=== PATIENT | female | born 1965 | race Caucasian/White ===

== ENCOUNTER 2023-02-09 15:00 | Outpatient (RCR) | payer SELFPAY ==
[2023-01-12 11:11] VITALS: RESP 18; TEMP 36.6; BMI 33.2
--- NOTE | 2023-01-12 11:48 | PCM.WC.HP ---
History of Present Illness Date of Service: 01/12/23 Chief Complaint: Dry gangrene, right fifth toe History of Wound: right fifth toe dry gangrene Progress of Wound: Mrs. Marcial is a 57-year-old diabetic female presenting to the wound care center [facility] for second opinion to dry gangrene to the right fifth digit. Patient was seeing her outside provider who is treating the patient with saline wet-to-dry dressing changes. Patient's right fifth toe has gotten worse with evidence of dry gangrene, erythema with mild proximal streaking to the right foot. She has not been on any antibiotics. She admits she is a diabetic with loss of feeling to both of her feet. She has been wearing a surgical shoe. She denies trauma. Denies constitutional symptoms. No other pedal complaints at this time. [facility] Home Medications lisinopril .ROUTE 01/12/23 [History Last Taken Unknown] metformin 1,000 mg tablet 1,000 mg PO BID 01/12/23 [History Last Taken Unknown] Vital Signs Vital Signs Vital Signs: 01/12/23 11:11 Temperature 97.9 F Temperature Source Temporal Respiratory Rate 18 Blood Pressure Source Monitor Blood Pressure Position Semi-Fowlers Blood Pressure Location Left Arm Oxygen Delivery Method Room Air Weight Weight: 77.111 kg Body Mass Index (BMI) 33.2 Physical Exam Narrative Vascular: DP and PT pulses are faintly palpable. CFT is delayed. Skin temperature is warm to warm from proximal ankle to distal digits right lower extremity. Evidence of an increase in focal warmth to the right fifth digit. Evidence of erythema with mild proximal streaking. Neurological: Light touch intact. Protective sensation is diminished. Dermatological: Dry gangrene appreciated to the right fifth digit with erythema and proximal streaking. Evidence of fissure to the plantar aspect of the right fifth digit with stable wound bed which is 100% granular nature. No drainage or probe to bone. Musculoskeletal: No pain on palpation to the right fifth digit. No pain with calf pressure. Debridement Note Debridement Note Post-Debridement Measurements and Additional Note: Post-Debridement Measurements/Treatment JON - Nurse 1 - General Ulcer Assessment Start: 01/12/23 11:06 Freq: Status: Active Protocol: NURYEXT Activity Type Activity Date Activity User E-sign Co-sign Detail Recorded Client Recorded Date Recorded By Document 01/12/23 11:11 KW Desktop 01/12/23 11:26 KW Edit Result 01/12/23 11:11 KW (1) Desktop 01/12/23 11:29 KW (1) Preferred language => Telugu Preferences => Verbal,Written Barriers to Learning => None Readiness To Learn => Excellent Willingness to Engage in Self Management => High Activies Readiness to Engage in Self Management => High Activities Anxiety Level => Calm Cooperation => Cooperative Perception => Coherent Interest in Health Problem => Asks Questions Education Importance => Acknowledges Need Does Patient Smoke tobacco or other => No substances Is Patient Diabetic => Yes Cultural/Evangelical Needs that may affect => No Treatment Plan Would you allow our [place] [facility] retail loan officer to => No meet you for the purpose of spiritual/ emotional support? Test Facility Engineer to contact place of amish => No Welcome to the Wound Care Center => Telugu 01/12/23 11:11 WC - Today's Visit Information Type of service Initial Visit Arrival Mode Ambulatory Patient Identification Verified (Name & Yes ) Finger Stick Blood Sugar(mg/dl) (if 163 indicated): Blood Sugar Stated by Patient Height and Weight Height 5 ft Weight 77.111 kg Weight in Pounds 170.0 lbs Body Mass Index (BMI) 33.2 BMI Classification Obese BSA - Rick 1.74 Vital Signs Temperature (97.8 F-99.1 F) 97.9 F Temperature Source Temporal Respiratory Rate (12-18) 18 Respiratory rate source Observation Oxygen Delivery Method Room Air Source Monitor Position Semi-Fowlers Blood Pressure Location Left Arm History Since Last Visit- (Skip if this is Patient's initial visit) Left Footwear Surgical Shoe with pressure relief insole Right Footwear Regular Shoe Pain Scale: 0-10 Numeric Is Patient Pain Free? Yes Communication Assessment Preferred language Telugu Teaching Assessment Preferences Verbal,Written Barriers to Learning None Readiness To Learn Excellent Willingness to Engage in Self Management High Activies Readiness to Engage in Self Management High Activities Anxiety Level Calm Cooperation Cooperative Perception Coherent Interest in Health Problem Asks Questions Education Importance Acknowledges Need Does Patient Smoke tobacco or other No substances Is Patient Diabetic Yes Culture/Evangelical/Test Facility Engineer Cultural/Evangelical Needs that may affect No Treatment Plan Would you allow our hospital retail loan officer to No meet you for the purpose of spiritual/ emotional support? Test Facility Engineer to contact place of amish No Teaching: Wound Center Welcome to the Wound Care Center Telugu WC - Nurse 1 - General Ulcer Measurement Start: 01/12/23 11:06 Freq: Status: Active Protocol: Activity Type Activity Date Activity User E-sign Co-sign Detail Recorded Client Recorded Date Recorded By Document 01/12/23 11:11 KW Desktop 01/12/23 11:26 KW 01/12/23 11:11 Wound Center Nurse 1 #1 5th toe -Photo Taken Yes -Wound Margin Distinct, Outline Attached -Granulation Amt None Present (0 %) -Necrosis Amt Large (67-100%) -Necrotic Tissue Type Eschar -Texture (Lisset-wound Skin Appearance) Assessed -Moisture (Lisset-wound Skin Appearance) Assessed -Color (Lisset-wound Skin Appearance) Assessed -Temperature (Lisset-wound Skin No Abnormality Appearance) (Pt Warm) -Anesthetic Used 5% Lidocaine Gel WC - Nurse 2 - General Ulcer CM Notes Start: 01/12/23 11:06 Freq: Status: Active Protocol: Activity Type Activity Date Activity User E-sign Co-sign Detail Recorded Client Recorded Date Recorded By Document 01/12/23 11:39 Laptop 01/12/23 11:41 01/12/23 11:39 Wound Center Nurse 2 -Correct Patient No -Correct Side, Site, Position No -Correct Procedure No -Procedure Performed No -Wound/Ulcer Outcome Not Healed -Ulcer Cleansing Rinsed/ Irrigated with Saline -Foul Odor after Cleansing No -Bioengineered Tissue No -Bleeding Controlled with Pressure -Treatment Response Procedure Tolerated Well -Offloading Yes -Type of Offloading Surgical Shoe -Debridement - Subq, 1st 20sq cm No Pain Scale: 0-10 Numeric Is Patient Pain Free? Yes Assessment/Plan Assessment/Plan (1) Dry gangrene: CODE(S): I96 - Gangrene, not elsewhere classified PLAN: Patient was examined evaluated. All findings were discussed with the patient. All questions were answered to the patient's satisfaction. Patient shows evidence of decreased pulses on physical exam. We will order PVRs. Patient shows evidence of dry gangrene to the right fifth digit. We will order plain film radiographs to rule out osteomyelitis. The patient will be placed on oral doxycycline twice daily for 2 weeks for concerns of cellulitis and possible osteomyelitis infection. Educated the patient that she will most likely need to have an amputation with flap closure to the right foot. She was understanding of this. I will begin booking the patient for surgical procedure. Patient is understanding of all risk and benefits. Patient will apply Betadine paint to the right fifth digit and cover with gauze, sock as well as wear surgical shoe. She will return to the wound care center in 1 week for follow-up. She left the office pleased with the visit. (2) Peripheral vascular disease: CODE(S): I73.9 - Peripheral vascular disease, unspecified (3) Osteomyelitis of right foot: CODE(S): M86.9 - Osteomyelitis, unspecified QUALIFIERS: Osteomyelitis type: other chronic Qualified Code(s): M86.671 - Other chronic osteomyelitis, right ankle and foot (4) Cellulitis of right foot: CODE(S): L03.115 - Cellulitis of right lower limb PLAN: Patient will be placed on doxycycline 2 weeks to be taken twice daily until gone.
--- NOTE | 2023-01-12 12:43 | RAD_ITS ---
INDICATION: RIGHT 5TH TOE ULCER EXAMINATION/TECHNIQUE: X-RAY - RIGHT FOOT XR Toes Min 2 Views COMPARISON: Right foot radiographs same day. FINDINGS: 3 views of the right toes. BONES: Normal anatomic alignment without evidence of fracture or subluxation. No concerning bony lesion or abnormal sclerosis to suggest lesion. JOINTS: No significant degenerative change. SOFT TISSUES: Dense atherosclerotic vascular calcifications. RAD/Toe(s) Min 2 Views IMPRESSION: No acute osseous abnormality of the right toes. Electronically Signed: Aly Caldera MD at 1:34 EDT ,
--- NOTE | 2023-01-12 12:43 | RAD_ITS ---
INDICATION: R/O OSTEOMYELITIS EXAMINATION/TECHNIQUE: X-RAY - RIGHT XR Foot Min 3 Views COMPARISON: None. FINDINGS: 3 views of the right foot. BONES: Normal anatomic alignment without evidence of fracture or subluxation. No concerning bony lesion or abnormal sclerosis to suggest lesion. JOINTS: No significant degenerative change. SOFT TISSUES: Dense atherosclerotic vascular calcifications. Inferior calcaneal and Achilles enthesophytes. Chronic ossicles off the medial malleolus. RAD/Foot min 3 Views IMPRESSION: No acute osseous abnormality of the right foot. Electronically Signed: Aly Caldera MD at 1:33 EDT ,
--- NOTE | 2023-01-19 12:51 | ART_ITS ---
Reason For Study: PVD Procedure A bilateral lower extremity continuous wave Doppler with analog waveform analysis,segmental pressures,and ankle brachial indexes without exercise. Left Segmental Pressures Left brachial= 163mmHg. Left posterior tibial artery = 134mmHg. Left dorsalis pedis artery = 209mmHg. Left digit = 104 mmHg. The left posterior tibial artery waveforms are biphasic. The left dorsalis pedis waveforms are biphasic. Right Segmental Pressures Right brachial= 157mmHg. Right thigh = >254mmHg. Right calf = 136mmHg. Right posterior tibial artery = 95mmHg. Right dorsalis pedis artery = 128mmHg. Right digit = 70 mmHg. The right posterior tibial artery waveforms are monophasic. The right dorsalis pedis waveforms are biphasic. Indices The right ankle brachial index by the posterior tibial artery is 0.58. The right ankle brachial index by the dorsalis pedis is 0.79. The right digital-brachial index is 0.43. The left ankle brachial index by the posterior tibial artery is 0.82. The left ankle brachial index by the dorsalis pedis is 1.28. The left digital-brachial index is 0.64. VL/Lower Ext Art Exam w/o Exercis Interpretation Summary Right MAKAYLA 0.79, moderate arterial insufficiency. Doppler/PVR waveforms and segm ental pressures reveal infrapopliteal diease Left MAKAYLA 1.28, normal. Doppler/PVR waveforms of the left leg normal at rest. TB I diminished, pedal/digit disease vs spasm Ordering Physician: Jeremiah Stoner Referring Physician: Josiah Lerma Performed By: Erich Johnson RVT
[2023-01-19 14:22] VITALS: BP 159/69; PULSE 84; TEMP 36.3; BMI 33.2
--- NOTE | 2023-01-19 16:49 | PCM.WC.PN ---
History of Present Illness Date of Service: 01/19/23 Chief Complaint: Dry gangrene, right fifth toe History of Wound: right fifth toe dry gangrene Progress of Wound: Mrs. Marcial is a 57-year-old diabetic female presenting to the wound care center [facility] for second opinion to dry gangrene to the right fifth digit. Patient was seeing her outside provider who is treating the patient with saline wet-to-dry dressing changes. Patient's right fifth toe has gotten worse with evidence of dry gangrene, erythema with mild proximal streaking to the right foot. She has not been on any antibiotics. She admits she is a diabetic with loss of feeling to both of her feet. She has been wearing a surgical shoe. She denies trauma. Denies constitutional symptoms. No other pedal complaints at this time. Subjective Subjective Mrs. Marcial is a 57-year-old diabetic female presenting to the wound care center [facility] for second opinion to dry gangrene to the right fifth digit. Patient was seeing her outside provider who is treating the patient with saline wet-to-dry dressing changes. Patient's right fifth toe has gotten worse with evidence of dry gangrene, erythema with mild proximal streaking to the right foot. Patient has been taking her doxycycline. She has been doing Betadine paint and dressing to the right fifth digit. She has been wearing a surgical shoe. She denies trauma. Denies constitutional symptoms. No other pedal complaints at this time. Objective Data Objective Data Vital Signs: Vital Signs Temp Pulse Resp BP O2 Del Method 97.4 F L 84 18 159/69 H Room Air 01/19/23 14:22 01/19/23 14:22 01/12/23 11:11 01/19/23 14:22 01/19/23 14:22 Oxygen Delivery Method Room Air Weight: 77.111 kg Body Mass Index (BMI) 33.2 Physical Exam Narrative Neurovascular is unchanged. Nonpitting edema appreciated to the right foot. Erythema has improved. The plantar incision has healed. Evidence of eschar to the tip of the fifth digit. Dry gangrene is present. Proximal wound to the dry green measuring 0.4 x 1.0 x 0.2 cm. Wound is stable. Fifth digit erythema and proximal streaking is improved. No pain with calf compression. Excision debridement down to and including subcutaneous tissue with a #15 blade without incident to the right fifth digit. Predebridement measurement is eschar. Postdebridement measurement is 0.4 x 1.0 x 0.2 cm. Debridement Note Debridement Note Debridement Free Text: Excision debridement down to and including subcutaneous tissue with a #15 blade without incident to the right fifth digit. Predebridement measurement is eschar. Postdebridement measurement is 0.4 x 1.0 x 0.2 cm. Post-Debridement Measurements and Additional Note: Post-Debridement Measurements/Treatment - Nurse 1 - General Ulcer Assessment Start: 01/12/23 11:06 Freq: Status: Active Protocol: JON.AYO Activity Type Activity Date Activity User E-sign Co-sign Detail Recorded Client Recorded Date Recorded By Document 01/12/23 11:11 KW Desktop 01/12/23 11:26 KW Edit Result 01/12/23 11:11 KW (1) Desktop 01/12/23 11:29 KW Document 01/19/23 14:22 GM Desktop 01/19/23 14:28 GM (1) Preferred language => Albanian Preferences => Verbal,Written Barriers to Learning => None Readiness To Learn => Excellent Willingness to Engage in Self Management => High Activies Readiness to Engage in Self Management => High Activities Anxiety Level => Calm Cooperation => Cooperative Perception => Coherent Interest in Health Problem => Asks Questions Education Importance => Acknowledges Need Does Patient Smoke tobacco or other => No substances Is Patient Diabetic => Yes Cultural/Buddhism Needs that may affect => No Treatment Plan Would you allow our hospital clinical quality manager to => No meet you for the purpose of spiritual/ emotional support? Diamond Saw Operator to contact place of jain => No Welcome to the Wound Care Center => Albanian 01/12/23 01/19/23 11:11 14:22 - Today's Visit Information Type of service Initial Visit Follow-up Visit (Physician/GREENHOUSE STAFF ) Arrival Mode Ambulatory Ambulatory Transfer Assistance None Patient Identification Verified (Name & Yes Yes ) Patient Requires Transmission-Based No Precautions Safety Precautions NA Finger Stick Blood Sugar(mg/dl) (if 163 indicated): Blood Sugar Stated by Patient Height and Weight Height 5 ft Weight 77.111 kg Weight in Pounds 170.0 lbs Body Mass Index (BMI) 33.2 33.2 BMI Classification Obese Obese BSA - Rick 1.74 Vital Signs Temperature (97.8 F-99.1 F) 97.9 F 97.4 F L Temperature Source Temporal Temporal Pulse Rate (60-100) 84 Pulse Location Monitor Respiratory Rate (12-18) 18 Respiratory rate source Observation Oxygen Delivery Method Room Air Room Air Blood Pressure (90/60-120/80) 159/69 H Blood Pressure Mean (mm Hg) 99 Source Monitor Monitor Position Semi-Fowlers Sitting Blood Pressure Location Left Arm Right Arm History Since Last Visit- (Skip if this is Patient's initial visit) Have you changed medications since your No last visit? Any new allergies or adverse reactions No Had a fall/change in ADL's that may No increase risk of falls Signs or symptoms of abuse and/or No neglect since last visit Have you been in the hospital since your No last visit? Has dressing in place as prescribed Yes Has compression in place as prescribed N/A Has offloadiing in place as prescribed N/A Left Footwear Surgical Shoe Regular Shoe with pressure relief insole Right Footwear Regular Shoe Regular Shoe Pain Scale: 0-10 Numeric Is Patient Pain Free? Yes Yes Communication Assessment Preferred language Albanian Teaching Assessment Preferences Verbal,Written Barriers to Learning None Readiness To Learn Excellent Willingness to Engage in Self Management High Activies Readiness to Engage in Self Management High Activities Anxiety Level Calm Cooperation Cooperative Perception Coherent Interest in Health Problem Asks Questions Education Importance Acknowledges Need Does Patient Smoke tobacco or other No substances Is Patient Diabetic Yes Culture/Buddhism/Diamond Saw Operator Cultural/Buddhism Needs that may affect No Treatment Plan Would you allow our hospital clinical quality manager to No meet you for the purpose of spiritual/ emotional support? Diamond Saw Operator to contact place of jain No Teaching: Wound Center Welcome to the Wound Care Center English WEBB - Nurse 1 - General Ulcer Measurement Start: 01/12/23 11:06 Freq: Status: Active Protocol: Activity Type Activity Date Activity User E-sign Co-sign Detail Recorded Client Recorded Date Recorded By Document 01/12/23 11:11 KW Desktop 01/12/23 11:26 KW Document 01/19/23 14:22 Desktop 01/19/23 14:28 01/12/23 01/19/23 11:11 14:22 Wound Center Nurse 1 #1 5th toe -Photo Taken Yes No -Epithelialization None Present -Tunneling No -Undermining/Tunneling No -Exudate Amt Small -Exudate Type Serous -Wound Margin Distinct, Indistinct, Non Outline -Visible Attached -Granulation Amt None Present (0 %) -Necrosis Amt Large (67-100%) -Necrotic Tissue Type Eschar Eschar -Structure Exposed N/A -Texture (Lisset-wound Skin Appearance) Assessed Assessed -Moisture (Lisset-wound Skin Appearance) Assessed Assessed -Color (Lisset-wound Skin Appearance) Assessed Assessed -Temperature (Lisset-wound Skin No Abnormality No Abnormality Appearance) (Pt Warm) (Pt Warm) -Tenderness on Palpation (Lisset-wound No Skin Appearance) -Ulcer Cleansing Rinsed/ Irrigated with Saline -Foul Odor after Cleansing No -Anesthetic Used 5% Lidocaine 5% Lidocaine Gel Gel WC - Nurse 2 - General Ulcer CM Notes Start: 01/12/23 11:06 Freq: Status: Active Protocol: Activity Type Activity Date Activity User E-sign Co-sign Detail Recorded Client Recorded Date Recorded By Document 01/12/23 11:39 Laptop 01/12/23 11:41 Document 01/19/23 14:45 Laptop 01/19/23 14:53 01/12/23 01/19/23 11:39 14:45 Wound Center Nurse 2 #1 5th toe -Time 14:53 -Correct Patient No Yes -Correct Side, Site, Position No Yes -Correct Procedure No Yes -Procedure Performed No Yes -Type of Procedure Debridement -Clinical Debridement Subcutaneous -Tissue Removed Subcutaneous -Post Debridement (cm) - Length 0.4 -Post Debridement (cm) - Width 1.0 -Post Debridement (cm) - Depth 0.2 -Total Square (Post) (cm) 0.40 -Area of Debridement (cm) - Length 0.4 -Area of Debridement (cm) - Width 1.0 -Total Square (Area) (cm) 0.40 -Tunneling No -Undermining/Tunneling No -Circular Undermining No -Wound/Ulcer Outcome Not Healed Not Healed -Ulcer Cleansing Rinsed/ Rinsed/ Irrigated with Irrigated with Saline Saline -Foul Odor after Cleansing No No -Bioengineered Tissue No No -Bleeding Controlled with Pressure Pressure -Treatment Response Procedure Procedure Tolerated Well Tolerated Well -Offloading Yes Yes -Type of Offloading Surgical Shoe Surgical Shoe -Debridement - Subq, 1st 20sq cm No Yes Pain Scale: 0-10 Numeric Is Patient Pain Free? Yes Yes - Nurse 3 - General Ulcer D/C NN Start: 01/12/23 11:06 Freq: Status: Active Protocol: Activity Type Activity Date Activity User E-sign Co-sign Detail Recorded Client Recorded Date Recorded By Document 01/12/23 11:58 [facility] Desktop 01/12/23 11:59 [facility] Document 01/19/23 15:05 KW Desktop 01/19/23 15:05 01/12/23 01/19/23 11:58 15:05 Wound Care Center Nurse 3 #1 5th toe -Ulcer Cleansing Rinsed/ Rinsed/ Irrigated with Irrigated with Saline Saline -Foul Odor after Cleansing No -Other Dressing betadine -Primary Dressing Covered/Secured with Dry Gauze, Dry Gauze, Secured with Secured with Tape Tape Pain Scale: 0-10 Numeric Is Patient Pain Free? Yes Yes WC - Visit Discharge Discharge Condition Stable Stable Ambulatory Status Ambulatory Transportation Private Auto Private Auto Accompanied by sister Medication Reconcilliation completed & No provided to patient/care provider Clinical Summary of Care Provided Yes Assessment/Plan Assessment/Plan (1) Non-pressure chronic ulcer of other part of right foot with fat layer exposed: CODE(S): L97.512 - Non-pressure chronic ulcer of other part of right foot with fat layer exposed PLAN: Patient was examined evaluated. All findings were discussed with the patient. All questions were answered to the patient's satisfaction. Excision debridement down to and including subcutaneous tissue with a #15 blade without incident to the right fifth digit. Predebridement measurement is eschar. Postdebridement measurement is 0.4 x 1.0 x 0.2 cm. Patient's wound was dressed with Betadine paint and gauze. Patient instructed to be ambulatory in surgical shoe only. Educated the patient on strict [place] control. Patient's ABIs were reviewed and show evidence of moderate peripheral vascular disease right lower extremity. Make referral to Dr. Ortiz for consultation. Follow-up in 1 week. (2) Dry gangrene: CODE(S): I96 - Gangrene, not elsewhere classified PLAN: Reviewed the patient's radiographs that show no evidence of soft tissue air emphysema or osteomyelitis to the distal tuft of the right fifth digit. (3) Peripheral vascular disease: CODE(S): I73.9 - Peripheral vascular disease, unspecified PLAN: Reviewed the patient's MAKAYLA and showed evidence of moderate arterial disease to the right lower extremity. Left lower extremity is unremarkable. We will make referral to Dr. Ortiz for consultation and possible intervention. (4) Cellulitis of right foot: CODE(S): L03.115 - Cellulitis of right lower limb
[2023-01-26 08:43] VITALS: BP 146/72; PULSE 90; RESP 18; TEMP 35.4; BMI 33.2
--- NOTE | 2023-01-26 09:03 | PN.PCM_ITS ---
History of Present Illness Date of Service: 01/26/23 Chief Complaint: Dry gangrene, right fifth toe History of Wound: right fifth toe dry gangrene Progress of Wound: Mrs. Marcial is a 57-year-old diabetic female presenting to the wound care center [facility] for second opinion to dry gangrene to the right fifth digit. Patient was seeing her outside provider who is treating the patient with saline wet-to-dry dressing changes. Patient's right fifth toe has gotten worse with evidence of dry gangrene, erythema with mild proximal streaking to the right foot. She has not been on any antibiotics. She admits she is a diabetic with loss of feeling to both of her feet. She has been wearing a surgical shoe. She denies trauma. Denies constitutional symptoms. No other pedal complaints at this time. Subjective Subjective Mrs. Marcial is a 57-year-old diabetic female presenting to the wound care center [facility] for second opinion to dry gangrene to the right fifth digit. Patient was seeing her outside provider who is treating the patient with saline wet-to-dry dressing changes. Patient's right fifth toe has gotten worse with evidence of dry gangrene, erythema with mild proximal streaking to the right foot. Patient has been taking her doxycycline. She has been doing Betadine paint and dressing to the right fifth digit. She has been wearing a surgical shoe. She denies trauma. Denies constitutional symptoms. No other pedal complaints at this time. Objective Data Objective Data Vital Signs: Vital Signs Temp Pulse Resp BP O2 Del Method 95.7 F L 90 18 146/72 H Room Air 01/26/23 08:43 01/26/23 08:43 01/26/23 08:43 01/26/23 08:43 01/19/23 14:22 Oxygen Delivery Method Room Air Weight: 77.111 kg Body Mass Index (BMI) 33.2 Physical Exam Narrative Neurovascular is unchanged. Nonpitting edema appreciated to the right foot. Erythema has improved. The plantar incision has healed. Evidence of eschar to the tip of the fifth digit. Dry gangrene is present. Proximal wound to the dry green measuring 1.0 x 0.4 x 0.2 cm. Wound is stable. Fifth digit erythema and proximal streaking is present. No pain with calf compression. Excision debridement down to and including subcutaneous tissue with a #15 blade without incident to the right fifth digit. Predebridement measurement is eschar. Postdebridement measurement is 1.0 x 0.4 x 0.2 cm. Debridement Note Debridement Note Debridement Free Text: Excision debridement down to and including subcutaneous tissue with a #15 blade without incident to the right fifth digit. Predebridement measurement is eschar. Postdebridement measurement is 1.0 x 0.4 x 0.2 cm. Post-Debridement Measurements and Additional Note: Post-Debridement Measurements/Treatment - Nurse 1 - General Ulcer Assessment Start: 01/12/23 11:06 Freq: Status: Active Protocol: HECTOR Activity Type Activity Date Activity User E-sign Co-sign Detail Recorded Client Recorded Date Recorded By Document 01/12/23 11:11 KW Desktop 01/12/23 11:26 KW Edit Result 01/12/23 11:11 KW (1) Desktop 01/12/23 11:29 KW Document 01/19/23 14:22 GM Desktop 01/19/23 14:28 GM Document 01/26/23 08:43 PL Tablet 01/26/23 08:48 PL (1) Preferred language => Vietnamese Preferences => Verbal,Written Barriers to Learning => None Readiness To Learn => Excellent Willingness to Engage in Self Management => High Activies Readiness to Engage in Self Management => High Activities Anxiety Level => Calm Cooperation => Cooperative Perception => Coherent Interest in Health Problem => Asks Questions Education Importance => Acknowledges Need Does Patient Smoke tobacco or other => No substances Is Patient Diabetic => Yes Cultural/Christianity Needs that may affect => No Treatment Plan Would you allow our hospital licensed psychologist manager to => No meet you for the purpose of spiritual/ emotional support? Oracle Application Architect to contact place of adventist => No Welcome to the Wound Care Center => Vietnamese 01/12/23 01/19/23 01/26/23 11:11 14:22 08:43 - Today's Visit Information Type of service Initial Visit Follow-up Visit Follow-up Visit (Physician/REGISTERED CLINICAL DIETITIAN (Physician/REGISTERED CLINICAL DIETITIAN ) ) Arrival Mode Ambulatory Ambulatory Ambulatory Transfer Assistance None None Patient Identification Verified (Name & Yes Yes Yes ) Patient Requires Transmission-Based No No Precautions Safety Precautions NA Finger Stick Blood Sugar(mg/dl) (if 163 indicated): Blood Sugar Stated by Patient Height and Weight Height 5 ft Weight 77.111 kg Weight in Pounds 170.0 lbs Body Mass Index (BMI) 33.2 33.2 33.2 BMI Classification Obese Obese Obese BSA - Rick 1.74 Vital Signs Temperature (97.8 F-99.1 F) 97.9 F 97.4 F L 95.7 F L Temperature Source Temporal Temporal Temporal Pulse Rate (60-100) 84 90 Pulse Location Monitor Respiratory Rate (12-18) 18 18 Respiratory rate source Observation Oxygen Delivery Method Room Air Room Air Blood Pressure (90/60-120/80) 159/69 H 146/72 H Blood Pressure Mean (mm Hg) 99 96 Source Monitor Monitor Position Semi-Fowlers Sitting Blood Pressure Location Left Arm Right Arm History Since Last Visit- (Skip if this is Patient's initial visit) Have you changed medications since your No No last visit? Any new allergies or adverse reactions No No Had a fall/change in ADL's that may No No increase risk of falls Signs or symptoms of abuse and/or No No neglect since last visit Have you been in the hospital since your No No last visit? Has dressing in place as prescribed Yes Yes Has compression in place as prescribed N/A N/A Has offloadiing in place as prescribed N/A Yes Experienced any changes in pain level or No management Left Footwear Surgical Shoe Regular Shoe with pressure relief insole Right Footwear Regular Shoe Regular Shoe Pain Scale: 0-10 Numeric Is Patient Pain Free? Yes Yes Yes Communication Assessment Preferred language Vietnamese Teaching Assessment Preferences Verbal,Written Barriers to Learning None Readiness To Learn Excellent Willingness to Engage in Self Management High Activies Readiness to Engage in Self Management High Activities Anxiety Level Calm Cooperation Cooperative Perception Coherent Interest in Health Problem Asks Questions Education Importance Acknowledges Need Does Patient Smoke tobacco or other No substances Is Patient Diabetic Yes Culture/Christianity/Oracle Application Architect Cultural/Christianity Needs that may affect No Treatment Plan Would you allow our hospital licensed psychologist manager to No meet you for the purpose of spiritual/ emotional support? Oracle Application Architect to contact place of adventist No Teaching: Wound Center Welcome to the Wound Care Center English WEBB - Nurse 1 - General Ulcer Measurement Start: 01/12/23 11:06 Freq: Status: Active Protocol: Activity Type Activity Date Activity User E-sign Co-sign Detail Recorded Client Recorded Date Recorded By Document 01/12/23 11:11 Desktop 01/12/23 11:26 Document 01/19/23 14:22 Desktop 01/19/23 14:28 01/12/23 01/19/23 11:11 14:22 Wound Center Nurse 1 #1 5th toe -Photo Taken Yes No -Epithelialization None Present -Tunneling No -Undermining/Tunneling No -Exudate Amt Small -Exudate Type Serous -Wound Margin Distinct, Indistinct, Non Outline -Visible Attached -Granulation Amt None Present (0 %) -Necrosis Amt Large (67-100%) -Necrotic Tissue Type Eschar Eschar -Structure Exposed N/A -Texture (Lisset-wound Skin Appearance) Assessed Assessed -Moisture (Lisset-wound Skin Appearance) Assessed Assessed -Color (Lisset-wound Skin Appearance) Assessed Assessed -Temperature (Lisset-wound Skin No Abnormality No Abnormality Appearance) (Pt Warm) (Pt Warm) -Tenderness on Palpation (Lisset-wound No Skin Appearance) -Ulcer Cleansing Rinsed/ Irrigated with Saline -Foul Odor after Cleansing No -Anesthetic Used 5% Lidocaine 5% Lidocaine Gel Gel WC - Nurse 2 - General Ulcer CM Notes Start: 01/12/23 11:06 Freq: Status: Active Protocol: Activity Type Activity Date Activity User E-sign Co-sign Detail Recorded Client Recorded Date Recorded By Document 01/12/23 11:39 Laptop 01/12/23 11:41 Document 01/19/23 14:45 [employer] 01/19/23 14:53 Document 01/26/23 08:55 Laptop 01/26/23 08:57 01/12/23 01/19/23 01/26/23 11:39 14:45 08:55 Wound Center Nurse 2 #1 5th toe -Time 14:53 08:55 -Correct Patient No Yes Yes -Correct Side, Site, Position No Yes Yes -Correct Procedure No Yes Yes -Procedure Performed No Yes Yes -Type of Procedure Debridement Debridement -Clinical Debridement Subcutaneous Subcutaneous -Tissue Removed Subcutaneous Subcutaneous -Post Debridement (cm) - Length 0.4 1 -Post Debridement (cm) - Width 1.0 0.4 -Post Debridement (cm) - Depth 0.2 0.2 -Total Square (Post) (cm) 0.40 0.4 -Area of Debridement (cm) - Length 0.4 1.0 -Area of Debridement (cm) - Width 1.0 0.4 -Total Square (Area) (cm) 0.40 0.40 -Tunneling No No -Undermining/Tunneling No No -Circular Undermining No No -Wound/Ulcer Outcome Not Healed Not Healed Not Healed -Ulcer Cleansing Rinsed/ Rinsed/ Rinsed/ Irrigated with Irrigated with Irrigated with Saline Saline Saline -Foul Odor after Cleansing No No No -Bioengineered Tissue No No No -Bleeding Controlled with Pressure Pressure Pressure -Treatment Response Procedure Procedure Procedure Tolerated Well Tolerated Well Tolerated Well -Offloading Yes Yes No -Type of Offloading Surgical Shoe Surgical Shoe Surgical Shoe -Debridement - Open, 1st 20sq cm No -Debridement - Subq, 1st 20sq cm No Yes Yes Pain Scale: 0-10 Numeric Is Patient Pain Free? Yes Yes Yes - Nurse 3 - General Ulcer D/C NN Start: 01/12/23 11:06 Freq: Status: Active Protocol: Activity Type Activity Date Activity User E-sign Co-sign Detail Recorded Client Recorded Date Recorded By Document 01/12/23 11:58 [facility] Desktop 01/12/23 11:59 [facility] Document 01/19/23 15:05 [employer] Desktop 01/19/23 15:05 [employer] Document 01/26/23 09:02 Laptop 01/26/23 09:02 01/12/23 01/19/23 01/26/23 11:58 15:05 09:02 Wound Care Center Nurse 3 #1 5th toe -Ulcer Cleansing Rinsed/ Rinsed/ Rinsed/ Irrigated with Irrigated with Irrigated with Saline Saline Saline -Foul Odor after Cleansing No -Other Dressing betadine betadine -Primary Dressing Covered/Secured with Dry Gauze, Dry Gauze, Dry Gauze, Secured with Secured with Secured with Tape Tape Tape Pain Scale: 0-10 Numeric Is Patient Pain Free? Yes Yes Yes - Visit Discharge Discharge Condition Stable Stable Stable Ambulatory Status Ambulatory Ambulatory Transportation Private Auto Private Auto Private Auto Accompanied by sister Medication Reconcilliation completed & No Yes provided to patient/care provider Clinical Summary of Care Provided Yes Yes Assessment/Plan Assessment/Plan (1) Non-pressure chronic ulcer of other part of right foot with fat layer exposed: CODE(S): L97.512 - Non-pressure chronic ulcer of other part of right foot with fat layer exposed PLAN: Patient was examined evaluated. All findings were discussed with the patient. All questions were answered to the patient's satisfaction. Excision debridement down to and including subcutaneous tissue with a #15 blade without incident to the right fifth digit. Predebridement measurement is eschar. Postdebridement measurement is 1.0 x 0.4 x 0.2 cm. Right fifth digit was dressed with Betadine paint dry sterile dressing. Patient will follow-up with vascular next Tuesday. We will still plan to move forward after vascular consult with partial excision of bone with advancement flap to right fifth digit. Follow-up in 1 week. (2) Cellulitis of right foot: CODE(S): L03.115 - Cellulitis of right lower limb PLAN: Patient will have her doxycycline extended for 2 additional weeks prior to surgery. Patient will follow-up with vascular surgery on next Tuesday. (3) Osteomyelitis of right foot: CODE(S): M86.9 - Osteomyelitis, unspecified QUALIFIERS: Osteomyelitis type: other chronic Qualified Code(s): M86.671 - Other chronic osteomyelitis, right ankle and foot
[2023-02-02 14:18] VITALS: BP 130/69; PULSE 89; RESP 18; BMI 33.2
--- NOTE | 2023-02-02 15:32 | PCM.WC.PN ---
History of Present Illness Date of Service: 02/02/23 Chief Complaint: Dry gangrene, right fifth toe History of Wound: right fifth toe dry gangrene Progress of Wound: Mrs. Marcial is a 57-year-old diabetic female presenting to the wound care center today [facility] for second opinion to dry gangrene to the right fifth digit. Patient was seeing her outside provider who is treating the patient with saline wet-to-dry dressing changes. Patient's right fifth toe has gotten worse with evidence of dry gangrene, erythema with mild proximal streaking to the right foot. She has not been on any antibiotics. She admits she is a diabetic with loss of feeling to both of her feet. She has been wearing a surgical shoe. She denies trauma. Denies constitutional symptoms. No other pedal complaints at this time. Subjective Subjective is a 58-year-old diabetic female presenting to clinic today for follow-up evaluation of dry gangrene to the right fifth digit. She has been taking antibiotics as written. She has been applying home dressing changes, Betadine paint dry sterile dressing to the right fifth digit. She did follow-up with the vascular surgery PA and has a scheduled CTA for next month for evaluation of her lower extremity vessels to the right lower extremity. She denies trauma. Denies constitutional symptoms. No other pedal complaints at this time. Objective Data Objective Data Vital Signs: Vital Signs Temp Pulse Resp BP O2 Del Method 95.7 F L 89 18 130/69 H Room Air 01/26/23 08:43 02/02/23 14:18 02/02/23 14:18 02/02/23 14:18 02/02/23 14:18 Oxygen Delivery Method Room Air Weight: 77.111 kg Body Mass Index (BMI) 33.2 Physical Exam Narrative Neurovascular is unchanged. Nonpitting edema appreciated to the right foot. Erythema has improved. The plantar incision has healed. Evidence of eschar to the tip of the fifth digit. Dry gangrene is present. Proximal wound to the dry green measuring 1.0 x 0.4 x 0.2 cm. Wound is stable. Fifth digit erythema and proximal streaking is present. No pain with calf compression. Debridement Note Debridement Note Post-Debridement Measurements and Additional Note: Post-Debridement Measurements/Treatment WC - Nurse 1 - General Ulcer Assessment Start: 01/12/23 11:06 Freq: Status: Active Protocol: WC.LOWEXT Activity Type Activity Date Activity User E-sign Co-sign Detail Recorded Client Recorded Date Recorded By Document 01/12/23 11:11 KW Desktop 01/12/23 11:26 KW Edit Result 01/12/23 11:11 KW (1) Desktop 01/12/23 11:29 KW Document 01/19/23 14:22 GM Desktop 01/19/23 14:28 GM Document 01/26/23 08:43 PL Tablet 01/26/23 08:48 PL Document 02/02/23 14:18 GM Desktop 02/02/23 14:24 GM (1) Preferred language => Tajik Preferences => Verbal,Written Barriers to Learning => None Readiness To Learn => Excellent Willingness to Engage in Self Management => High Activies Readiness to Engage in Self Management => High Activities Anxiety Level => Calm Cooperation => Cooperative Perception => Coherent Interest in Health Problem => Asks Questions Education Importance => Acknowledges Need Does Patient Smoke tobacco or other => No substances Is Patient Diabetic => Yes Cultural/Caodaism Needs that may affect => No Treatment Plan Would you allow our hospital vice president talent management to => No meet you for the purpose of spiritual/ emotional support? Market Survey Representative to contact place of scientologist => No Welcome to the Wound Care Center => [place] 01/12/23 01/19/23 01/26/23 11:11 14:22 08:43 WC - Today's Visit Information Type of service Initial Visit Follow-up Visit Follow-up Visit (Physician/PRESIDENT AND CHIEF OPERATING OFFICER (Physician/PRESIDENT AND CHIEF OPERATING OFFICER ) ) Arrival Mode Ambulatory Ambulatory Ambulatory Transfer Assistance None None Patient Identification Verified (Name & Yes Yes Yes ) Patient Requires Transmission-Based No No Precautions Safety Precautions NA Finger Stick Blood Sugar(mg/dl) (if 163 indicated): Blood Sugar Stated by Patient Height and Weight Height 5 ft Weight 77.111 kg Weight in Pounds 170.0 lbs Body Mass Index (BMI) 33.2 33.2 33.2 BMI Classification Obese Obese Obese BSA - Rick 1.74 Vital Signs Temperature (97.8 F-99.1 F) 97.9 F 97.4 F L 95.7 F L Temperature Source Temporal Temporal Temporal Pulse Rate (60-100) 84 90 Pulse Location Monitor Respiratory Rate (12-18) 18 18 Respiratory rate source Observation Oxygen Delivery Method Room Air Room Air Blood Pressure (90/60-120/80) 159/69 H 146/72 H Blood Pressure Mean (mm Hg) 99 96 Source Monitor Monitor Position Semi-Fowlers Sitting Blood Pressure Location Left Arm Right Arm History Since Last Visit- (Skip if this is Patient's initial visit) Have you changed medications since your No No last visit? Any new allergies or adverse reactions No No Had a fall/change in ADL's that may No No increase risk of falls Signs or symptoms of abuse and/or No No neglect since last visit Have you been in the hospital since your No No last visit? Has dressing in place as prescribed Yes Yes Has compression in place as prescribed N/A N/A Has offloadiing in place as prescribed N/A Yes Experienced any changes in pain level or No management Left Footwear Surgical Shoe Regular Shoe with pressure relief insole Right Footwear Regular Shoe Regular Shoe Pain Scale: 0-10 Numeric Is Patient Pain Free? Yes Yes Yes Communication Assessment Preferred language Tajik Teaching Assessment Preferences Verbal,Written Barriers to Learning None Readiness To Learn Excellent Willingness to Engage in Self Management High Activies Readiness to Engage in Self Management High Activities Anxiety Level Calm Cooperation Cooperative Perception Coherent Interest in Health Problem Asks Questions Education Importance Acknowledges Need Does Patient Smoke tobacco or other No substances Is Patient Diabetic Yes Culture/Caodaism/Market Survey Representative Cultural/Caodaism Needs that may affect No Treatment Plan Would you allow our hospital vice president talent management to No meet you for the purpose of spiritual/ emotional support? Market Survey Representative to contact place of scientologist No Teaching: Wound Center Welcome to the Wound Care Center [place] 02/02/23 14:18 WC - Today's Visit Information Type of service Follow-up Visit (Physician/PRESIDENT AND CHIEF OPERATING OFFICER ) Arrival Mode Ambulatory Transfer Assistance None Patient Identification Verified (Name & Yes ) Patient Requires Transmission-Based No Precautions Safety Precautions NA Finger Stick Blood Sugar(mg/dl) (if indicated): Blood Sugar Height and Weight Height Weight Weight in Pounds Body Mass Index (BMI) 33.2 BMI Classification Obese BSA - Rick Vital Signs Temperature (97.8 F-99.1 F) Temperature Source Pulse Rate (60-100) 89 Pulse Location Monitor Respiratory Rate (12-18) 18 Respiratory rate source Ventilator Oxygen Delivery Method Room Air Blood Pressure (90/60-120/80) 130/69 H Blood Pressure Mean (mm Hg) 89 Source Monitor Position Sitting Blood Pressure Location Left Arm History Since Last Visit- (Skip if this is Patient's initial visit) Have you changed medications since your Yes last visit? Any new allergies or adverse reactions No Had a fall/change in ADL's that may No increase risk of falls Signs or symptoms of abuse and/or No neglect since last visit Have you been in the hospital since your No last visit? Has dressing in place as prescribed Yes Has compression in place as prescribed N/A Has offloadiing in place as prescribed N/A Experienced any changes in pain level or management Left Footwear Regular Shoe Right Footwear Wedge Shoe Pain Scale: 0-10 Numeric Is Patient Pain Free? Yes Communication Assessment Preferred language Teaching Assessment Preferences Barriers to Learning Readiness To Learn Willingness to Engage in Self Management Activies Readiness to Engage in Self Management Activities Anxiety Level Cooperation Perception Interest in Health Problem Education Importance Does Patient Smoke tobacco or other substances Is Patient Diabetic Culture/Caodaism/Market Survey Representative Cultural/Caodaism Needs that may affect Treatment Plan Would you allow our hospital vice president talent management to meet you for the purpose of spiritual/ emotional support? Market Survey Representative to contact place of scientologist Teaching: Wound Center Welcome to the Wound Care Center WC - Nurse 1 - General Ulcer Measurement Start: 01/12/23 11:06 Freq: Status: Active Protocol: Activity Type Activity Date Activity User E-sign Co-sign Detail Recorded Client Recorded Date Recorded By Document 01/12/23 11:11 KW Desktop 01/12/23 11:26 Document 01/19/23 14:22 Desktop 01/19/23 14:28 Document 02/02/23 14:18 [employer] 02/02/23 14:24 01/12/23 01/19/23 02/02/23 11:11 14:22 14:18 Wound Center Nurse 1 #1 5th toe -Combined with other wound No -Current Size (cm) - Length 2.0 -Current Size (cm) - Width 2.0 -Current Size (cm) - Depth 0.1 -Total Square Cm 4.00 -Photo Taken Yes No No -Epithelialization None Present None Present -Tunneling No No -Undermining/Tunneling No No -Circular Undermining No -Exudate Amt Small Medium -Exudate Type Serous Yellow/Green -Wound Margin Distinct, Indistinct, Non Distinct, Outline -Visible Outline Attached Attached -Granulation Amt None Present (0 None Present (0 %) %) -Slough/Fibrin Yes -Necrosis Amt Large (67-100%) Large (67-100%) -Necrotic Tissue Type Eschar Eschar Eschar -Structure Exposed N/A N/A -Texture (Lisset-wound Skin Appearance) Assessed Assessed Assessed -Moisture (Lisset-wound Skin Appearance) Assessed Assessed Assessed -Color (Lisset-wound Skin Appearance) Assessed Assessed Assessed -Temperature ([place]isset-wound Skin No Abnormality No Abnormality No Abnormality Appearance) (Pt Warm) (Pt Warm) (Pt Warm) -Tenderness on Palpation (Lisset-wound No Yes Skin Appearance) -Ulcer Cleansing Rinsed/ Soap and Water Irrigated with Saline -Foul Odor after Cleansing No No -Anesthetic Used 5% Lidocaine 5% Lidocaine 5% Lidocaine Gel Gel Gel WC - Nurse 2 - General Ulcer CM Notes Start: 01/12/23 11:06 Freq: Status: Active Protocol: Activity Type Activity Date Activity User E-sign Co-sign Detail Recorded Client Recorded Date Recorded By Document 01/12/23 11:39 [employer] Laptop 01/12/23 11:41 Document 01/19/23 14:45 Laptop 01/19/23 14:53 Document 01/26/23 08:55 Laptop 01/26/23 08:57 01/12/23 01/19/23 01/26/23 11:39 14:45 08:55 Wound Center Nurse 2 #1 5th toe -Time 14:53 08:55 -Correct Patient No Yes Yes -Correct Side, Site, Position No Yes Yes -Correct Procedure No Yes Yes -Procedure Performed No Yes Yes -Type of Procedure Debridement Debridement -Clinical Debridement Subcutaneous Subcutaneous -Tissue Removed Subcutaneous Subcutaneous -Post Debridement (cm) - Length 0.4 1 -Post Debridement (cm) - Width 1.0 0.4 -Post Debridement (cm) - Depth 0.2 0.2 -Total Square (Post) (cm) 0.40 0.4 -Area of Debridement (cm) - Length 0.4 1.0 -Area of Debridement (cm) - Width 1.0 0.4 -Total Square (Area) (cm) 0.40 0.40 -Tunneling No No -Undermining/Tunneling No No -Circular Undermining No No -Wound/Ulcer Outcome Not Healed Not Healed Not Healed -Ulcer Cleansing Rinsed/ Rinsed/ Rinsed/ Irrigated with Irrigated with Irrigated with Saline Saline Saline -Foul Odor after Cleansing No No No -Bioengineered Tissue No No No -Bleeding Controlled with Pressure Pressure Pressure -Treatment Response Procedure Procedure Procedure Tolerated Well Tolerated Well Tolerated Well -Offloading Yes Yes No -Type of Offloading Surgical Shoe Surgical Shoe Surgical Shoe -Debridement - Open, 1st 20sq cm No -Debridement - Subq, 1st 20sq cm No Yes Yes Pain Scale: 0-10 Numeric Is Patient Pain Free? Yes Yes Yes - Nurse 3 - General Ulcer D/C NN Start: 01/12/23 11:06 Freq: Status: Active Protocol: Activity Type Activity Date Activity User E-sign Co-sign Detail Recorded Client Recorded Date Recorded By Document 01/12/23 11:58 [facility] Desktop 01/12/23 11:59 [facility] Document 01/19/23 15:05 [employer] Desktop 01/19/23 15:05 Document 01/26/23 09:02 Laptop 01/26/23 09:02 01/12/23 01/19/23 01/26/23 11:58 15:05 09:02 Wound Care Center Nurse 3 #1 5th toe -Ulcer Cleansing Rinsed/ Rinsed/ Rinsed/ Irrigated with Irrigated with Irrigated with Saline Saline Saline -Foul Odor after Cleansing No -Other Dressing betadine betadine -Primary Dressing Covered/Secured with Dry Gauze, Dry Gauze, Dry Gauze, Secured with Secured with Secured with Tape Tape Tape Pain Scale: 0-10 Numeric Is Patient Pain Free? Yes Yes Yes - Visit Discharge Discharge Condition Stable Stable Stable Ambulatory Status Ambulatory Ambulatory Transportation Private Auto Private Auto Private Auto Accompanied by sister Medication Reconcilliation completed & No Yes provided to patient/care provider Clinical Summary of Care Provided Yes Yes Assessment/Plan Assessment/Plan (1) Non-pressure chronic ulcer of other part of right foot with fat layer exposed: CODE(S): L97.512 - Non-pressure chronic ulcer of other part of right foot with fat layer exposed PLAN: Patient was examined evaluated. All findings were discussed with the patient. All questions were answered to the patient satisfaction. Betadine paint followed by dry sterile dressing was applied to the right lower extremity fifth digit. Patient was instructed to paint Betadine paint to her right fifth digit and interspace daily. She has to follow-up weekly at the wound care center with Dr. Stoner. She will follow-up when scheduled for her CTA for evaluation of her right lower extremity vessels and the need for intervention. Patient is grateful for her care. She will continue to take her antibiotic as written. She will follow-up in 1 week. 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
--- NOTE | 2023-02-09 15:03 | PN.PCM_ITS ---
History of Present Illness Date of Service: 02/09/23 Chief Complaint: Dry gangrene, right fifth toe History of Wound: right fifth toe dry gangrene Progress of Wound: Mrs. Marcial is a 57-year-old diabetic female presenting to the wound care center [facility] for second opinion to dry gangrene to the right fifth digit. Patient was seeing her outside provider who is treating the patient with saline wet-to-dry dressing changes. Patient's right fifth toe has gotten worse with evidence of dry gangrene, erythema with mild proximal streaking to the right foot. She has not been on any antibiotics. She admits she is a diabetic with loss of feeling to both of her feet. She has been wearing a surgical shoe. She denies trauma. Denies constitutional symptoms. No other pedal complaints at this time. Subjective Subjective Ms Marcial is a 58-year-old diabetic female presenting to follow-up evaluation of right toe gangrene. Patient has been doing home dressing supplies consisting of Betadine paint and Band-Aid. She will follow-up with vascular for CTA in the next 2 weeks. She admits her blood sugars well-controlled. She denies any pain trauma or constitutional symptoms at this time. No other pedal complaints. Objective Data Objective Data Vital Signs: Vital Signs Temp Pulse Resp BP O2 Del Method 95.7 F L 89 18 130/69 H Room Air 01/26/23 08:43 02/02/23 14:18 02/02/23 14:18 02/02/23 14:18 02/02/23 14:18 Oxygen Delivery Method Room Air Weight: 77.111 kg Body Mass Index (BMI) 33.2 Physical Exam Narrative Neurovascular is unchanged. Nonpitting edema appreciated to the right foot. Blanchable erythema appreciated to the right fifth digit. Dry eschar appreciated to the distal aspect of the right digit. No malodor. No drainage. No probe to bone. No pain with calf compression. Excisional debridement down to and including subcutaneous tissue fascia/muscle with a #15 blade and pickup to the right fifth digit without incident. Predebridement measurement is eschar. Postdebridement measurement is 1.0 x 1.2 x 0.3 cm. Sanguinous drainage noted after debridement. Debridement Note Debridement Note Debridement Free Text: Excisional debridement down to and including subcutaneous tissue fascia/muscle with a #15 blade and pickup to the right fifth digit without incident. Predebridement measurement is eschar. Postdebridement measurement is 1.0 x 1.2 x 0.3 cm. Sanguinous drainage noted after debridement. Post-Debridement Measurements and Additional Note: Post-Debridement Measurements/Treatment - Nurse 1 - General Ulcer Assessment Start: 01/12/23 11:06 Freq: Status: Active Protocol: HECTOR Activity Type Activity Date Activity User E-sign Co-sign Detail Recorded Client Recorded Date Recorded By Document 01/12/23 11:11 KW Desktop 01/12/23 11:26 KW Edit Result 01/12/23 11:11 KW (1) Desktop 01/12/23 11:29 KW Document 01/19/23 14:22 GM Desktop 01/19/23 14:28 GM Document 01/26/23 08:43 PL Tablet 01/26/23 08:48 PL Document 02/02/23 14:18 GM Desktop 02/02/23 14:24 GM (1) Preferred language => Gambian Preferences => Verbal,Written Barriers to Learning => None Readiness To Learn => Excellent Willingness to Engage in Self Management => High Activies Readiness to Engage in Self Management => High Activities Anxiety Level => Calm Cooperation => Cooperative Perception => Coherent Interest in Health Problem => Asks Questions Education Importance => Acknowledges Need Does Patient Smoke tobacco or other => No substances Is Patient Diabetic => Yes Cultural/Denominational Needs that may affect => No Treatment Plan Would you allow our hospital academic department chair to => No meet you for the purpose of spiritual/ emotional support? [employer] to contact place of baptism => No Welcome to the Wound Care Center => Gambian 01/12/23 01/19/23 01/26/23 11:11 14:22 08:43 - Today's Visit Information Type of service Initial Visit Follow-up Visit Follow-up Visit (Physician/INFRASTRUCTURE TECHNICIAN (Physician/INFRASTRUCTURE TECHNICIAN ) ) Arrival Mode Ambulatory Ambulatory Ambulatory Transfer Assistance None None Patient Identification Verified (Name & Yes Yes Yes ) Patient Requires Transmission-Based No No Precautions Safety Precautions NA Finger Stick Blood Sugar(mg/dl) (if 163 indicated): Blood Sugar Stated by Patient Height and Weight Height 5 ft Weight 77.111 kg Weight in Pounds 170.0 lbs Body Mass Index (BMI) 33.2 33.2 33.2 BMI Classification Obese Obese Obese BSA - Rick 1.74 Vital Signs Temperature (97.8 F-99.1 F) 97.9 F 97.4 F L 95.7 F L Temperature Source Temporal Temporal Temporal Pulse Rate (60-100) 84 90 Pulse Location Monitor Respiratory Rate (12-18) 18 18 Respiratory rate source Observation Oxygen Delivery Method Room Air Room Air Blood Pressure (90/60-120/80) 159/69 H 146/72 H Blood Pressure Mean (mm Hg) 99 96 Source Monitor Monitor Position Semi-Fowlers Sitting Blood Pressure Location Left Arm Right Arm History Since Last Visit- (Skip if this is Patient's initial visit) Have you changed medications since your No No last visit? Any new allergies or adverse reactions No No Had a fall/change in ADL's that may No No increase risk of falls Signs or symptoms of abuse and/or No No neglect since last visit Have you been in the hospital since your No No last visit? Has dressing in place as prescribed Yes Yes Has compression in place as prescribed N/A N/A Has offloadiing in place as prescribed N/A Yes Experienced any changes in pain level or No management Left Footwear Surgical Shoe Regular Shoe with pressure relief insole Right Footwear Regular Shoe Regular Shoe Pain Scale: 0-10 Numeric Is Patient Pain Free? Yes Yes Yes Communication Assessment Preferred language Gambian Teaching Assessment Preferences Verbal,Written Barriers to Learning None Readiness To Learn Excellent Willingness to Engage in Self Management High Activies Readiness to Engage in Self Management High Activities Anxiety Level Calm Cooperation Cooperative Perception Coherent Interest in Health Problem Asks Questions Education Importance Acknowledges Need Does Patient Smoke tobacco or other No substances Is Patient Diabetic Yes Culture/Denominational/[employer] Employee [employer] Cultural/Denominational Needs that may affect No Treatment Plan Would you allow our hospital academic department chair to No meet you for the purpose of spiritual/ emotional support? [employer] Employee [employer] to contact place of baptism No Teaching: Wound Center Welcome to the Wound Care Center Gambian 02/02/23 14:18 WC - Today's Visit Information Type of service Follow-up Visit (Physician/INFRASTRUCTURE TECHNICIAN ) Arrival Mode Ambulatory Transfer Assistance None Patient Identification Verified (Name & Yes ) Patient Requires Transmission-Based No Precautions Safety Precautions NA Finger Stick Blood Sugar(mg/dl) (if indicated): Blood Sugar Height and Weight Height Weight Weight in Pounds Body Mass Index (BMI) 33.2 BMI Classification Obese BSA - Rick Vital Signs Temperature (97.8 F-99.1 F) Temperature Source Pulse Rate (60-100) 89 Pulse Location Monitor Respiratory Rate (12-18) 18 Respiratory rate source Ventilator Oxygen Delivery Method Room Air Blood Pressure (90/60-120/80) 130/69 H Blood Pressure Mean (mm Hg) 89 Source Monitor Position Sitting Blood Pressure Location Left Arm History Since Last Visit- (Skip if this is Patient's initial visit) Have you changed medications since your Yes last visit? Any new allergies or adverse reactions No Had a fall/change in ADL's that may No increase risk of falls Signs or symptoms of abuse and/or No neglect since last visit Have you been in the hospital since your No last visit? Has dressing in place as prescribed Yes Has compression in place as prescribed N/A Has offloadiing in place as prescribed N/A Experienced any changes in pain level or management Left Footwear Regular Shoe Right Footwear Wedge Shoe Pain Scale: 0-10 Numeric Is Patient Pain Free? Yes Communication Assessment Preferred language Teaching Assessment Preferences Barriers to Learning Readiness To Learn Willingness to Engage in Self Management Activies Readiness to Engage in Self Management Activities Anxiety Level Cooperation Perception Interest in Health Problem Education Importance Does Patient Smoke tobacco or other substances Is Patient Diabetic Culture/Denominational/[employer] Employee [employer] Cultural/Denominational Needs that may affect Treatment Plan Would you allow our hospital academic department chair to meet you for the purpose of spiritual/ emotional support? [facility] Employee [employer] to contact place of baptism Teaching: Wound Center Welcome to the Wound Care Center WC - Nurse 1 - General Ulcer Measurement Start: 01/12/23 11:06 Freq: Status: Active Protocol: Activity Type Activity Date Activity User E-sign Co-sign Detail Recorded Client Recorded Date Recorded By Document 01/12/23 11:11 KW Desktop 01/12/23 11:26 KW Document 01/19/23 14:22 Desktop 01/19/23 14:28 GM Document 02/02/23 14:18 Desktop 02/02/23 14:24 01/12/23 01/19/23 02/02/23 11:11 14:22 14:18 Wound Center Nurse 1 #1 5th toe -Combined with other wound No -Current Size (cm) - Length 2.0 -Current Size (cm) - Width 2.0 -Current Size (cm) - Depth 0.1 -Total Square Cm 4.00 -Photo Taken Yes No No -Epithelialization None Present None Present -Tunneling No No -Undermining/Tunneling No No -Circular Undermining No -Exudate Amt Small Medium -Exudate Type Serous Yellow/Green -Wound Margin Distinct, Indistinct, Non Distinct, Outline -Visible Outline Attached Attached -Granulation Amt None Present (0 None Present (0 %) %) -Slough/Fibrin Yes -Necrosis Amt Large (67-100%) Large (67-100%) -Necrotic Tissue Type Eschar Eschar Eschar -Structure Exposed N/A N/A -Texture (Lisset-wound Skin Appearance) Assessed Assessed Assessed -Moisture (Lisset-wound Skin Appearance) Assessed Assessed Assessed -Color (Lisset-wound Skin Appearance) Assessed Assessed Assessed -Temperature (Lisset-wound Skin No Abnormality No Abnormality No Abnormality Appearance) (Pt Warm) (Pt Warm) (Pt Warm) -Tenderness on Palpation (Lisset-wound No Yes Skin Appearance) -Ulcer Cleansing Rinsed/ Soap and Water Irrigated with Saline -Foul Odor after Cleansing No No -Anesthetic Used 5% Lidocaine 5% Lidocaine 5% Lidocaine Gel Gel Gel WC - Nurse 2 - General Ulcer CM Notes Start: 01/12/23 11:06 Freq: Status: Active Protocol: Activity Type Activity Date Activity User E-sign Co-sign Detail Recorded Client Recorded Date Recorded By Document 01/12/23 11:39 Laptop 01/12/23 11:41 Document 01/19/23 14:45 Laptop 01/19/23 14:53 Document 01/26/23 08:55 Laptop 01/26/23 08:57 Document 02/02/23 16:42 PL [id number] 02/02/23 16:42 PL 01/12/23 01/19/23 01/26/23 11:39 14:45 08:55 Wound Center Nurse 2 #1 5th toe -Time 14:53 08:55 -Correct Patient No Yes Yes -Correct Side, Site, Position No Yes Yes -Correct Procedure No Yes Yes -Procedure Performed No Yes Yes -Type of Procedure Debridement Debridement -Clinical Debridement Subcutaneous Subcutaneous -Tissue Removed Subcutaneous Subcutaneous -Post Debridement (cm) - Length 0.4 1 -Post Debridement (cm) - Width 1.0 0.4 -Post Debridement (cm) - Depth 0.2 0.2 -Total Square (Post) (cm) 0.40 0.4 -Area of Debridement (cm) - Length 0.4 1.0 -Area of Debridement (cm) - Width 1.0 0.4 -Total Square (Area) (cm) 0.40 0.40 -Tunneling No No -Undermining/Tunneling No No -Circular Undermining No No -Wound/Ulcer Outcome Not Healed Not Healed Not Healed -Ulcer Cleansing Rinsed/ Rinsed/ Rinsed/ Irrigated with Irrigated with Irrigated with Saline Saline Saline -Foul Odor after Cleansing No No No -Bioengineered Tissue No No No -Bleeding Controlled with Pressure Pressure Pressure -Treatment Response Procedure Procedure Procedure Tolerated Well Tolerated Well Tolerated Well -Offloading Yes Yes No -Type of Offloading Surgical Shoe Surgical Shoe Surgical Shoe -Debridement - Open, 1st 20sq cm No -Debridement - Subq, 1st 20sq cm No Yes Yes Pain Scale: 0-10 Numeric Is Patient Pain Free? Yes Yes Yes 02/02/23 16:42 Wound Center Nurse 2 #1 5th toe -Time 14:39 -Correct Patient Yes -Correct Side, Site, Position Yes -Correct Procedure Yes -Procedure Performed Yes -Type of Procedure Debridement -Clinical Debridement Epidermis / Dermis -Tissue Removed Epidermis, Dermis -Post Debridement (cm) - Length 2.0 -Post Debridement (cm) - Width 2.0 -Post Debridement (cm) - Depth 0.1 -Total Square (Post) (cm) 4.00 -Area of Debridement (cm) - Length 2.0 -Area of Debridement (cm) - Width 2.0 -Total Square (Area) (cm) 4.00 -Tunneling No -Undermining/Tunneling No -Circular Undermining No -Wound/Ulcer Outcome Not Healed -Ulcer Cleansing Rinsed/ Irrigated with Saline -Foul Odor after Cleansing No -Bioengineered Tissue No -Bleeding Controlled with Pressure -Treatment Response Procedure Tolerated Well -Offloading -Type of Offloading -Debridement - Open, 1st 20sq cm Yes -Debridement - Subq, 1st 20sq cm Pain Scale: 0-10 Numeric Is Patient Pain Free? Yes - Nurse 3 - General Ulcer D/C NN Start: 11/01/23 11:06 Freq: Status: Active Protocol: Activity Type Activity Date Activity User E-sign Co-sign Detail Recorded Client Recorded Date Recorded By Document 01/12/23 11:58 BMF Desktop 01/12/23 11:59 BMF Document 01/19/23 15:05 KW Desktop 01/19/23 15:05 KW Document 01/26/23 09:02 JF Laptop 01/26/23 09:02 JF Document 02/02/23 16:03 RB Desktop 02/02/23 16:03 RB 01/12/23 01/19/23 01/26/23 11:58 15:05 09:02 Wound Care Center Nurse 3 #1 5th toe -Ulcer Cleansing Rinsed/ Rinsed/ Rinsed/ Irrigated with Irrigated with Irrigated with Saline Saline Saline -Foul Odor after Cleansing No -Other Dressing betadine betadine -Primary Dressing Covered/Secured with Dry Gauze, Dry Gauze, Dry Gauze, Secured with Secured with Secured with Tape Tape Tape Treatment Response Pain Scale: 0-10 Numeric Is Patient Pain Free? Yes Yes Yes WC - Visit Discharge Discharge Condition Stable Stable Stable Ambulatory Status Ambulatory Ambulatory Transportation Private Auto Private Auto Private Auto Accompanied by [facility] Medication Reconcilliation completed & No Yes provided to patient/care provider Clinical Summary of Care Provided Yes Yes 02/02/23 16:03 Wound Care Center Nurse 3 #1 5th toe -Ulcer Cleansing betadine periulcer and wound -Foul Odor after Cleansing -Other Dressing betadine -Primary Dressing Covered/Secured with Dry Gauze & Roll Gauze, Secured with Tape Treatment Response Procedure Tolerated Well Pain Scale: 0-10 Numeric Is Patient Pain Free? 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 All findings were discussed with the patient. All questions were answered to the patient satisfaction. Excisional debridement down to and including subcutaneous tissue fascia/muscle with a #15 blade and pickup to the right fifth digit without incident. Predebridement measurement is eschar. Postdebridement measurement is 1.0 x 1.2 x 0.3 cm. Sanguinous drainage noted after debridement. The right fifth digit was dressed with Sandra, Betadine paint dry sterile dressing and a single layer Tubigrip. Patient will do daily dressing changes with Betadine paint and a Band-Aid until follow-up in 3 weeks. She will follow-up with Dr. Ortiz for CTA in 2 weeks. We are still planning her surgery when cleared by vascular. Patient will be placed on an additional week of doxycycline, 100 mg to be taken twice daily. Patient educated on signs symptoms of worsening infection will follow-up with the wound care center sooner if needed. Follow-up in 3 weeks. 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
[2023-02-09 15:04] VITALS: BP 161/89; PULSE 86; RESP 18; BMI 33.2
== END 2023-02-10 23:59 | disposition home or self-care (01) ==
LOC: WC 15:00
PROVIDERS: PCP Family Medicine; Referring Provider Family Medicine; Visit Provider Podiatrist Foot & Ankle Surgery
DX: L97.512 Non-pressure chronic ulcer of other part of right foot with fat layer exposed (principal); I70.261 Atherosclerosis of native arteries of extremities with gangrene, right leg; M86.9 Osteomyelitis, unspecified; E11.9 Type 2 diabetes mellitus without complications; L03.115 Cellulitis of right lower limb
CPT/HCPCS: 11042; 11043; 73630; 73660; 93923; 97597; 99214; G0463

== ENCOUNTER → 2023-02-21 | Outpatient (CLI) | payer SELFPAY ==
--- NOTE | 2023-02-21 15:59 | CT_ITS ---
STUDY: CTA OF THE ABDOMINAL AORTA AND BILATERAL LOWER EXTREMITIES REASON FOR EXAM: Female, 58 years old. Right 5th digit gangrene, atherosclerosis RADIATION DOSAGE (If Supplied By Facility): CTDIvol = ( 9.07 ) mGy, DLP = ( 1349.86 ) mGycm TECHNIQUE: Axial CT angiography multi-detector data acquisition was obtained from the dome of the liver to the level of the ankles to the following intravenous administration of IV 100mL [id number]. Axial images and MIP images were reconstructed from the axial data set. Post-processing of the angiographic images was performed, with multiplanar reformation and 3D reconstruction. Individualized dose optimization techniques were used for this CT. TECHNICAL QUALITY: Good COMPARISON: None. Descriptors of Narrowing: None (0%) Mild (< 50%) Moderate (50-70%) Severe (70-90%) Subtotal/Total Occlusion (90-100%) Non-Evaluable (technically non-diagnostic FINDINGS: Mildly distended gallbladder. Abdominal aorta: Mild degree of atherosclerotic plaque formation of the infrarenal abdominal aorta. Celiac and superior mesenteric arteries: No demonstrated narrowing. Inferior mesenteric artery: No demonstrated narrowing. Right renal artery(arteries): No demonstrated narrowing. Left renal artery(arteries): No demonstrated narrowing. Right common iliac artery: No demonstrated narrowing. Right external iliac artery: No demonstrated narrowing. Right internal iliac artery: No demonstrated narrowing. Left common iliac artery: No demonstrated narrowing. Left external iliac artery: No demonstrated narrowing. Left internal iliac artery: No demonstrated narrowing. RIGHT LOWER EXTREMITY Right common femoral artery: No demonstrated narrowing. Right profundus femoris: No demonstrated narrowing. Right superficial femoral: Mild degree of atherosclerotic plaque along the distal portion of the superficial femoral artery. Right popliteal artery: Atherosclerotic plaque formation. Moderate stenosis in its proximal portion. Right tibioperoneal trunk: Atherosclerotic plaque formation with their multiple levels of stenosis. Right anterior tibial artery: No demonstrated narrowing. Right posterior tibial artery: Diffuse atherosclerotic plaque formation with poor runoff. Right peroneal artery: No demonstrated narrowing. LEFT LOWER EXTREMITY Left common femoral artery: No demonstrated narrowing. Left profundus femoris: No demonstrated narrowing. Left superficial femoral: No demonstrated narrowing. Left popliteal artery: Atherosclerotic plaque formation with focal areas of narrowing. Left tibioperoneal trunk: Atherosclerotic plaque formation with focal areas of narrowing. Left anterior tibial artery: No demonstrated narrowing. Left posterior tibial artery: Diffuse atherosclerotic plaque formation. Decreased flow. Left peroneal artery: Atherosclerotic plaque formation with patency. CT/CTA Abd w/Runoff W/WO Contrast IMPRESSION: Two-vessel runoff in both lower extremities with focal areas of narrowing and plaque formation of the popliteal arteries. Electronically Signed: Marko Cutler MD at 14:10 EST ,
[2023-02-21 16:49] LABS: CREATININE FINGERSTICK < 1.0 mg/dL (0.55-1.02); EGFR FINGERSTICK > 60.0000 mL/min (>60)
== END | disposition home or self-care (01) ==
LOC: CT 15:59
PROVIDERS: PCP Family Medicine; Referring Provider Physician Assistant; Visit Provider Physician Assistant
DX: L97.512 Non-pressure chronic ulcer of other part of right foot with fat layer exposed (principal); I70.261 Atherosclerosis of native arteries of extremities with gangrene, right leg
CPT/HCPCS: 75635; Q9967

== ENCOUNTER 2023-03-02 14:57 | Outpatient (RCR) | payer SELFPAY ==
[2023-02-11 00:31] VITALS: BP 161/89; PULSE 86; RESP 18; TEMP 35.4; BMI 33.2
[2023-03-02 15:37] VITALS: BP 144/70; PULSE 96; RESP 20; TEMP 36.1; BMI 33.2
--- NOTE | 2023-03-02 15:49 | PCM.WC.PN ---
History of Present Illness Date of Service: 03/02/23 Chief Complaint: Dry gangrene, right fifth toe History of Wound: right fifth toe dry gangrene Subjective Subjective Ms. Marcial is a 58-year-old diabetic female seen in the clinic today for follow-up and evaluation of right fifth digit dry gangrene. Patient will be seeing the vascular surgery tomorrow for possible intervention. She is planned for amputation and flap closure with Dr. Stoner Tuesday. She is grateful for her care. She has been doing home dressing changes as directed. She denies any infection to the area. Her blood sugars well-controlled. She denies trauma. Denies constitutional symptoms. No other pedal complaints at this time. Objective Data Objective Data Vital Signs: Vital Signs Temp Pulse Resp BP 97 F L 96 20 H 144/70 H 03/02/23 15:37 03/02/23 15:37 03/02/23 15:37 03/02/23 15:37 Weight: 77.111 kg Body Mass Index (BMI) 33.2 Physical Exam Narrative Neurovascular is unchanged. Nonpitting edema appreciated to the right foot. Blanchable erythema appreciated to the right fifth digit. Dry eschar appreciated to the distal aspect of the right digit. No malodor. No drainage. No probe to bone. No pain with calf compression. Debridement Note Debridement Note Post-Debridement Measurements and Additional Note: Post-Debridement Measurements/Treatment - Nurse 1 - General Ulcer Assessment Start: 03/02/23 15:37 Freq: Status: Active Protocol: WC.LOWEXT Activity Type Activity Date Activity User E-sign Co-sign Detail Recorded Client Recorded Date Recorded By Document 03/02/23 15:37 DL [id number] 03/02/23 15:38 DL 03/02/23 15:37 - Today's Visit Information Type of service Follow-up Visit (Physician/PORT CDL A DRIVER ) Arrival Mode Ambulatory Transfer Assistance None Patient Identification Verified (Name & Yes ) Patient Requires Transmission-Based No Precautions Height and Weight Body Mass Index (BMI) 33.2 BMI Classification Obese Vital Signs Temperature (97.8 F-99.1 F) 97 F L Temperature Source Temporal Pulse Rate (60-100) 96 Pulse Location Monitor Respiratory Rate (12-18) 20 H Respiratory rate source Observation Blood Pressure (90/60-120/80) 144/70 H Blood Pressure Mean (mm Hg) 94 Source Monitor History Since Last Visit- (Skip if this is Patient's initial visit) Have you changed medications since your No last visit? Any new allergies or adverse reactions No Had a fall/change in ADL's that may No increase risk of falls Signs or symptoms of abuse and/or No neglect since last visit Have you been in the hospital since your No last visit? Has dressing in place as prescribed Yes Has compression in place as prescribed N/A Has offloadiing in place as prescribed Yes Experienced any changes in pain level or No management Pain Scale: 0-10 Numeric Is Patient Pain Free? Yes WC - Nurse 1 - General Ulcer Measurement Start: 03/02/23 15:37 Freq: Status: Active Protocol: Activity Type Activity Date Activity User E-sign Co-sign Detail Recorded Client Recorded Date Recorded By Document 03/02/23 15:37 MELVIN [id number] 03/02/23 15:38 DL 03/02/23 15:37 Wound Center Nurse 1 #1 5th toe -Current Size (cm) - Length 0.1 -Current Size (cm) - Width 0.1 -Current Size (cm) - Depth 0.1 -Total Square Cm 0.01 -Exudate Amt None Present -Wound Margin Distinct, Outline Attached -Granulation Amt Large (67-100%) -Granulation [place] -Necrosis Amt None Present (0 %) -Structure Exposed N/A -Texture (Lisset-wound Skin Appearance) Localized Edema -Moisture (Lisset-wound Skin Appearance) No Abnormality -Color (Lisset-wound Skin Appearance) Erythema -Temperature (Lisset-wound Skin No Abnormality Appearance) (Pt Warm) -Tenderness on Palpation (Lisset-wound No Skin Appearance) -Ulcer Cleansing Rinsed/ Irrigated with Saline -Foul Odor after Cleansing No -Anesthetic Used 5% Lidocaine Gel WC - Nurse 2 - General Ulcer CM Notes Start: 03/02/23 15:37 Freq: Status: Active Protocol: Activity Type Activity Date Activity User E-sign Co-sign Detail Recorded Client Recorded Date Recorded By Document 03/02/23 15:40 Laptop 03/02/23 15:47 03/02/23 15:40 Wound Center Nurse 2 -Correct Patient No -Correct Side, Site, Position No -Correct Procedure No -Procedure Performed No -Wound/Ulcer Outcome Not Healed -Bleeding Controlled with NA -Offloading Yes -Type of Offloading Surgical Shoe Pain Scale: 0-10 Numeric Is Patient Pain Free? Yes WC - Nurse 3 - General Ulcer D/C NN Start: 03/02/23 15:37 Freq: Status: Active Protocol: Activity Type Activity Date Activity User E-sign Co-sign Detail Recorded Client Recorded Date Recorded By Document 03/02/23 15:47 Laptop 03/02/23 15:48 03/02/23 15:47 Wound Care Center Nurse 3 #1 5th toe -Ulcer Cleansing Rinsed/ Irrigated with Saline -Other Dressing betadine gauze -Primary Dressing Covered/Secured with Dry Gauze & Roll Gauze, Secured with Tape Pain Scale: 0-10 Numeric Is Patient Pain Free? 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 All findings were discussed with the patient. All questions were answered to the patient's satisfaction. Patient will follow-up with Dr. Ortiz tomorrow for intervention. Tuesday the patient will follow-up with Dr. Stoner for surgical intervention with amputation flap closure to the right fifth digit. She is grateful for her care. She will continue to regulate her blood sugar to within normal limits. The patient will follow-up in [address] Stoner in private office. 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
== END 2023-03-03 12:16 | disposition home or self-care (01) ==
LOC: WC 14:57
PROVIDERS: PCP Family Medicine; Referring Provider Family Medicine; Visit Provider Podiatrist Foot & Ankle Surgery
DX: I70.261 Atherosclerosis of native arteries of extremities with gangrene, right leg (principal); L97.515 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 without evidence of necrosis; E11.9 Type 2 diabetes mellitus without complications
CPT/HCPCS: 99213; G0463

== ENCOUNTER → 2023-03-03 | Day surgery (SDC) | payer SELFPAY ==
[2023-03-02 08:38] VITALS: BMI 34.0
[2023-03-03 07:05] LABS: Absolute Lymphocyte Count 2.16 X10^3/uL (0.83-4.51); Absolute Neutrophil Count 3.8 X10^3/uL (2.0-7.7); Basophil# 0.04 X10^3/uL; Basophil% 0.6 % (0-1); Eosinophils% 2.9 % (0-5); Hematocrit 39.5 % (37-47); Hemoglobin 12.6 g/dL (12.0-15.0); Lymphocyte # 2.16 X10^3/ul (0.83-4.51); Mean Corp Hgb Conc 31.9 g/dL (32-36); Mean Corpuscular Hgb 27.6 pg (27.0-32.0); Mean Corpuscular Volume 86.4 fL (81-99); Mean Platelet Vol. 9.9 fl (6.2-12.0); Monocyte# 0.72 X10^3/uL; Monocyte% 10.3 % (0-10); NRBC Flagged by Analyzer 0 % (0-5); Neutrophil # 3.81 X10^3/uL (2.7-7.7); Neutrophil % 54.8 % (47-70); Platelet Count 291 K/mm3 (150-450); RBC Distribution Width CV 12.7 % (11.6-14.6); RBC Distribution Width SD 39.8 fl (35.1-43.9); Red Blood Count 4.57 M/mm3 (4.2-5.4)
[2023-03-03 07:26] LABS: Anion Gap 5 (5-15); BUN 23 mg/dL (7-18); BUN/Creat Ratio 29.8 RATIO (10-20); Calcium,Total 9.3 mg/dL (8.5-10.1); Chloride 104 mmol/L (98-107); Creatinine, Serum 0.77 mg/dL (0.55-1.02); EST Glomerular Filtration Rate 82 mL/min (>60); Est Glom Filt Rate - Afr Amer 99 mL/min (>60); Glucose 132 mg/dL (74-106); Potassium 4.1 mmol/L (3.5-5.1); Sodium Level 138 mmol/L (136-145)
--- NOTE | 2023-03-03 11:05 | PCM.OPRPT ---
Report of Operation Date of Procedure: 03/03/23 Pre-Operative Diagnosis: atherosclerosis with gangrene right lower extremity Post-Operative Diagnosis: same Surgery/Procedure Performed:: aortogram, right lower extremity runoff IVUS sfa/popliteal, TP trunk, peroneal atherectomy/stent right popliteal artery angioplasty right peroneal Surgeon: Ivan Ortiz Type of Anesthesia: Local and Sedation,Conscious Estimated Blood Loss (mL): 6 Description of Procedure: HPI: Patient is a 50-year-old female with nonhealing wound to the right fifth digit despite optimal local wound care. She had noninvasive vascular studies which revealed arterial insufficiency and a CT angiogram which revealed a popliteal occlusion with poor visualization of the tibial vessels. She is taken now for angiogram with possible intervention. Description of procedure: Upon obtaining form consent and verification correct patient procedure site patient taken the Rn Mobile where she was positioned prepped and draped in usual sterile fashion. A timeout was performed and she was administered conscious sedation with Versed and fentanyl. Skin overlying the left common femoral artery was anesthetized with 1% lidocaine and the vessel accessed and ultrasound guidance with micropuncture needle wire. This was exchanged for micropuncture sheath through which hand-injection iliofemoral angiogram was performed revealed satisfactory position with no extravasation dissection. Through the micropuncture sheath Bentson wire advanced into the abdominal aorta and the micropuncture sheath exchanged out for a short 5 Gambian sheath. Through the 5 Gambian sheath a Omni Flush catheter was advanced into the abdominal aorta and digital subtraction aortogram pelvic angiogram was performed. We then navigated the contralateral external iliac artery and from this position sequential right lower extremity subtraction angiography was performed which confirmed high-grade stenosis of the mid to distal popliteal artery with tandem greater than 90% stenoses in 3 separate segments of the P2 and P3 popliteal artery. This also revealed a patent large caliber anterior tibial artery which was dominant runoff to the foot, a patent tibioperoneal trunk with no significant stenosis, posterior tibial artery occluded as origin with no reconstitution, and peroneal artery patent with a single segment greater than 90% stenosis in the proximal one third. Single lesions that appeared amenable to endovascular treatment the Bentson wire was readvanced and the Omni Flush catheter and 5 Gambian sheath exchanged for 6 Gambian destination sheath advanced into the mid superficial femoral artery. The patient was in heparinized lasted over 30 minutes after which she only Bentson wire and quick cross catheter were able to navigate across the lesions of the popliteal and peroneal artery. Intravascular support was then advanced over the wire and recorded pullback of the peroneal artery, tibioperoneal trunk, popliteal artery, SFA was performed. This further define the extent and severity of the atherosclerosis as well as provided accurate vessel measurement. Band Industri[employer] wire was then exchanged for an 018 wire and a [place] Kenneth aspiration atherectomy device was brought to field prep for rubber tester instructions. This was then advanced over the wire and engaged for 2 passes across the popliteal artery lesion. 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 Given how significant the response was felt that a covered stent was the only option so the vessel was first ballooned with a 4 mm x 120 karthik angioplasty balloon to nominal and then deflated withdrawn. Next a 5 x 100 [place]hel Viabahn covered self-expanding stent was advanced in the position of the entire treatment segment and deployed. This was then postdilated with a 4 mm angioplasty balloon and repeat angiography revealed satisfactory result with brisk contrast transit with no further dissection, extravasation, fistula and no residual stenosis. Next using a command 14 wire and an angled quick cross catheter were able to navigate across the peroneal lesion which was then angioplastied with a 2 mm x 20 mm Saber balloon to nominal and then deflated withdrawn. Completion angiography revealed satisfactory resolution of the peroneal lesion with now unerupted two-vessel runoff via the anterior tibial and peroneal artery to the foot. A long 6 Gambian sheath and exchanged over a short 6 Gambian sheath and a minx closure device deployed followed by 2 minutes of manual pressure. The patient was then taken to the recovery room for bedrest prior to discharge home. Grafts/Implants Used: 5x10 viabahn
== END | disposition home or self-care (01) ==
PROVIDERS: PCP Family Medicine; Referring Provider Surgery Trauma Surgery; Visit Provider Surgery Trauma Surgery
DX: I70.261 Atherosclerosis of native arteries of extremities with gangrene, right leg (principal); E11.51 Type 2 diabetes mellitus with diabetic peripheral angiopathy without gangrene; Z79.84 Long term (current) use of oral hypoglycemic drugs; Z79.82 Long term (current) use of aspirin; Z79.899 Other long term (current) drug therapy; E78.00 Pure hypercholesterolemia, unspecified; S61.206A Unspecified open wound of right little finger without damage to nail, initial encounter
CPT/HCPCS: 36200; 36245; 36415; 37227; 37228; 37229; 37252; 37253; 75625; 75710; 76937; 80048; 85025; 99152; 99153; C1724; C1725; C1753; C1760; C1769; C1874; C1887; C1894; J7040; Q9967

== ENCOUNTER 2023-03-04 11:57 | Day surgery (SDC) | payer SELFPAY ==
[2023-02-28 16:31] LABS: Magnesium 1.7 mg/dL (1.6-2.6)
[2023-02-28 16:32] LABS: Creatinine, Serum 0.82 mg/dL (0.55-1.02); EST Glomerular Filtration Rate 76 mL/min (>60); Est Glom Filt Rate - Afr Amer 91 mL/min (>60)
[2023-03-04] VITALS (8 sets, daily range): BP systolic 85–136; BP diastolic 42–74; PULSE 78–95; RESP 16–17; TEMP 36.5–36.8; O2SAT 88–100; BMI 33.0
--- NOTE | 2023-03-04 | BON_PTH ---
PATIENT: JEROD TODD LOC: [facility] [place] U#:[id number] AGE/SX: 58/F ROOM: RE03/04/[address]: Dr. Jeremiah Stoner DPM : 1965 BED: DIS: 03/04/2023 SPEC #: [id number] RECD: 03/08/23 08:10 STATUS: FRANCESCO REEmy #: [id number] SANDRA: 03/04/23 00:[address]: Jeremiah Stoner DEPT: SURGICAL PATHOLOGY RECD BY: Flora Richardson ENTERED: 03/08/23 08:11 SP TYPE: Bone OTHR DR: DO Dr. Walter Segovia MD Tissues: Toe, NOS Procedures: Decalcification bone/plaque Surgery Specimen Level V HEADER OPERATION: ERAS, incision of bone cortex of right fifth digit PRE-OP DIAGNOSIS: Gangrene, peripheral vascular disease, osteomyelitis, cellulitis of right foot TISSUE SUBMITTED: Osteomyelitis of right fifth toe MICROSCOPIC DIAGNOSIS Bone of right fifth toe, biopsy: Skin and soft tissue with ulceration and associated acute and chronic inflammation and granulation. Bone with acute osteomyelitis. AM:shakeel 03/11/2023 MICROSCOPIC DESCRIPTION Slides are reviewed. GROSS DESCRIPTION Received in fixative is one container labeled with the patient's name and designated osteomyelitis of right fifth toe. The specimen consists of a piece of bone measuring 1.0 x 1.0 x 0.5 cm. The entire specimen is submitted in one cassette after decalcification. / YESSENIA:shakeel 03/08/2023 TC:2 CPT: 93256, 41066
[2023-03-04] MEDS: Acetaminophen 500 MG Tablet 1000 MG PO (12:46)
[2023-03-04] MEDS: Magnesium 2 GM for ERAS IV (12:46)
[2023-03-04] MEDS: Gabapentin 600 MG Tablet PO (12:46)
[2023-03-04] MEDS: Lactated Ringers 1,000 ML 15 ML IV (12:47)
[2023-03-04 13:16] LABS: Bedside Glucose 146 mg/dL (74-106)
--- NOTE | 2023-03-04 15:00 | RAD_ITS ---
INDICATION: ERAS, INCISION OF BONE CORTEX OF RIGHT FIFTH DIGIT WITH -- ADVANCEMENT FLAP COMPARISON: None. FINDINGS: Multiple intraoperative fluoroscopic images of the toes. Cumulative air kerma: 0.0034 mGy. RAD/Foot 2 Views IMPRESSION: Fluoroscopic images submitted. See operative report for details. Electronically Signed: Aly Caldera MD at 23:34 EST ,
[2023-03-04] MEDS: Cefazolin 2 GM in 0.9% Normal Saline (100mL Bag) 100 ML IV (15:48)
--- NOTE | 2023-03-04 15:52 | OP.PCM_ITS ---
Problems Associated Problem List Diagnoses (1) Gangrene, not elsewhere classified: (2) Peripheral vascular disease: (3) Osteomyelitis, unspecified: (4) Cellulitis of right foot: (5) Laceration without foreign body, right foot, initial encounter: Report of Operation Date of Procedure: 03/04/23 Pre-Operative Diagnosis: 1. Osteomyelitis, fifth digit, right foot 2. Dry gangrene, fifth digit, right foot 3. Peripheral vascular disease, right lower extremity 4. Cellulitis, right foot 5. Laceration without foreign body, fifth digit, right foot Post-Operative Diagnosis: 1. Osteomyelitis, fifth digit, right foot 2. Dry gangrene, fifth digit, right foot 3. Peripheral vascular disease, right lower extremity 4. Cellulitis, right foot 5. Laceration without foreign body, fifth digit, right foot Surgery/Procedure Performed:: 1. Incision of bone cortex, fifth digit, right foot 2. Advancement flap, right foot Description of Surgical Findings:: 1. Dry gangrene distal aspect fifth digit, right foot 2. Soft distal and intermediate phalanx after amputation, fifth digit, right foot 3. Successful advancement flap closure after amputation of the fifth digit, right foot 4. Good blood flow right foot Surgeon: Jeremiah Stoner wall attendant: None Type of Anesthesia: General and Local Anesthesiologist: Erich Zamora Special Medications: Per anesthesia Specimen's removed: 1. Fifth digit bone specimen, right foot. Sent to pathology and microbiology Drains: None Estimated Blood Loss (mL): 25 mL Fluids Replaced: Per anesthesia Description of Procedure: Indications For Operation: Mrs. Marcial is a 58-year-old diabetic female who was admitted to [facility] for for worsening dry gangrene to the fifth digit of the right foot. Due to worsening of the dry gangrene to the fifth digit of the right foot, the patient was ultimately referred to vascular surgery for evaluation, advanced imaging and and treatment. The patient was cleared by Dr. Ortiz for elective right fifth digit amputation. The patient is well-known to my service as she is a patient of mine from the wound care center. The patient was seen in private office for surgical consultation with all risk and benefits discussed with the patient in great detail. After discussion the patient is agreeable to move forward with elective surgery. Due to the nature of the worsening dry gangrene of the right fifth digit and the patient having diabetes is not deemed necessary at this time to take the patient to the operating room to perform incision of bone cortex with advancement flap closure of the of right foot as she has had intervention by vascular surgery to the right lower extremity. The nature of the problem, anticipated procedures, postop recovery/convalences and risk/complications include but not limited to infection, wound healing complications, hypertrophic scarring, numbness, tingling, chronic pain, CRPS, over and under correction, recurrence of deformity, DVT and or PE and the need for further surgery have been discussed in great detail with the patient. All questions have been answered to the patient's satisfaction. There are no guarantees given as to the outcome of the procedure. Description of Procedure: Under mild sedation, the patient was brought into the operating room and placed on the operating table in supine position. Once the patient was under general anesthesia with laryngeal mask airway, the right lower extremity was blocked using approximately 10 cc 0.5% Marcaine plain. No tourniquet was used for this case. Next, the right lower extremity was prepped and draped in normal aseptic manner. Next, a timeout was then undertaken verifying the correct patient, extremity, visibility of preoperative markings, availability of the equipment. Procedure #1, incision of bone cortex Next, attention was directed to the right fifth digit which showed evidence of dry gangrene to the distal third of the digit. Using a #15 blade a full- thickness incision from the fifth metatarsophalangeal joint down to the tip of the digit was made down to bone. Continued blunt dissection was carried around the distal intermediate and proximal phalanx. Incision of bone cortex was then performed to the intermediate and distal phalanx which was removed and passed the back table to be sent off for microbiology culture and sensitivity as well as pathology. Next, the proximal phalanx was removed and discarded. Using a [place] to palpate the head and surgical neck of the fifth metatarsal which showed evidence of strong structural cortex and articular surface. Procedure #2, advancement flap Next, undermining was done to the medial lateral remaining soft tissue to allow for advancement flap closure. Using a pickup and new #15 blade, the remaining tissue was remodeled for advancement flap closure. The incision was flushed with copious sonya of normal saline. The deep layer/subcutaneous layer was closed with 3-0 Vicryl in buried suture technique. The skin was reapproximated and advanced and closed using 3-0 nylon in simple interrupted suture technique. The right foot was wiped clean and patted dry. The incision was dressed with Betadine soaked Adaptic followed by 4 x 4's dry sterile dressing and a single- layer Worthington bandage was lightly applied to the right lower extremity for edema control. Final intraoperative C arm x-ray was taken and showed complete removal of fifth digit. The patient tolerated the procedure and anesthesia well and apparent satisfactory condition and was transported to the PACU for further monitoring prior to discharge home. Vital signs stable and vascular status intact to all digits bilateral. Post Operative Plan: Weightbearing: Partial weightbearing to right heel with surgical shoe Antibiotics: 2 g Ancef through the IV DVT Prophylaxis: Plavix and aspirin Guevara: None Dressing: Betadine soaked Adaptic, dry sterile dressing single-layer Worthington compression bandage X-Rays: Post-operative films taken on the operating room. Pain Medication: Flexeril and Percocet Follow-up: Patient to follow-up with Dr. Stoner 1 week postop in private office. Grafts/Implants Used: None Complications None Admit VTE Documentation VTE Present on Admission: No VTE Mechan Device Prophylaxis: SCD's VTE Pharm Prophylaxis ordered?: Yes
[2023-03-04] MEDS: Bupivacaine Mpf 0.5% 30 ML VIAL (16:03)
[2023-03-04 16:53] LABS: Bedside Glucose 161 mg/dL (74-106)
== END 2023-03-04 18:21 | disposition home or self-care (01) ==
LOC: SDC 12:04 → AC 12:04
PROVIDERS: Anesthesiology; Physician Assistant; PCP Family Medicine; Referring Provider Podiatrist Foot & Ankle Surgery; Visit Provider Podiatrist Foot & Ankle Surgery
PROC: (CPT 28292; principal; 2023-03-04 13:45)
DX: E11.52 Type 2 diabetes mellitus with diabetic peripheral angiopathy with gangrene (principal); M86.171 Other acute osteomyelitis, right ankle and foot; E11.69 Type 2 diabetes mellitus with other specified complication; L03.115 Cellulitis of right lower limb; R60.0 Localized edema; S91.311A Laceration without foreign body, right foot, initial encounter; I10 Essential (primary) hypertension; Z79.82 Long term (current) use of aspirin; Z79.84 Long term (current) use of oral hypoglycemic drugs; Z79.899 Other long term (current) drug therapy
CPT/HCPCS: 28005; 28825; 14040; 01480; 36415; 73620; 76000; 82565; 82962; 83735; 87015; 87070; 87075; 87077; 87081; 87102; 87116; 87186; 87205; 87206; 88305; 88307; 88311; J7120; J2405

== ENCOUNTER → 2023-04-05 | Outpatient (CLI) | payer SELFPAY ==
--- NOTE | 2023-04-05 12:41 | ADUL_ITS ---
Reason For Study: s/p pop art stent, atherosclerosis Right Velocities Ext. Iliac Artery, dist = 94.8 cm./sec. Common Femoral Artery, mid = 91.1 cm./sec. Supf Femoral Artery, prox = 91.1 cm./sec. Supf Femoral Artery, mid = 109.4 cm./sec. Supf Femoral Artery, dist. = 91.1 cm./sec. Pre stent 60.1 cm/s. Prox stent 61.9 cm/s. Mid stent 72.9 cm/s. Dist stent 111.2 cm/s. Post stent 165.6 cm/s. Profunda Femoral Artery = 71.1 cm./sec. Post. Tibial Artery, prox = 40.0 cm./sec. Post. Tibial Artery, mid = 37.3 cm./sec. Post. Tibial Artery, dist = 111.2 cm./sec. Peroneal Artery, prox = 82.0 cm./sec. Peroneal Artery, mid = 93.0 cm./sec. Peroneal Artery,dist = 76.5 cm./sec. Ant. Tibial Artery, prox = 85.7 cm./sec. Ant. Tibial Artery, mid = 105.8 cm./sec. Ant. Tibial Artery, dist = 147.8 cm./sec. /US Art Duplex Unilat Lower Ext Interpretation Summary Right SFA/popliteal stent patent with normal velocities and no stenosis. Ordering Physician: Jillian Cao Performed By: Aldo Peña RVT
--- NOTE | 2023-04-05 12:41 | ART_ITS ---
Reason For Study: atherosclerosis Procedure A bilateral lower extremity continuous wave Doppler with analog waveform analysis and ankle brachial indexes. Left Segmental Pressures Left brachial= 143mmHg. Left posterior tibial artery = 123mmHg. Left dorsalis pedis artery = 167mmHg. Left digit = 71 mmHg. The left posterior tibial artery waveforms are biphasic. The left dorsalis pedis waveforms are triphasic. Right Segmental Pressures Right brachial= 146mmHg. Right posterior tibial artery = 116mmHg. Right dorsalis pedis artery = 178mmHg. Right digit = 62 mmHg. The right dorsalis pedis waveforms are triphasic. The right posterior tibial artery waveforms are biphasic. Indices The right ankle brachial index by the dorsalis pedis is 1.22. The right ankle brachial index by the posterior tibial artery is .79. The right digital-brachial index is .42. The left ankle brachial index by the dorsalis pedis is 1.14. The left ankle brachial index by the posterior tibial artery is .84. The left digital-brachial index is .49. VL/Ankle Brachial Index Interpretation Summary Right MAKAYLA 1.22, normal. Doppler/PVR waveforms of the right ankle normal at rest . TBI diminished, pedal/digit disease vs spasm Left MAKAYLA 1.14, normal. Doppler/PVR waveforms of the left ankle normal at rest.T BI diminished, pedal/digit disease vs spasm Ordering Physician: Jillian Cao Performed By: Aldo Peña RVAri
== END | disposition home or self-care (01) ==
LOC: CVS 12:40
PROVIDERS: PCP Family Medicine; Referring Provider Physician Assistant; Visit Provider Physician Assistant
DX: I70.261 Atherosclerosis of native arteries of extremities with gangrene, right leg (principal); Z48.812 Encounter for surgical aftercare following surgery on the circulatory system
CPT/HCPCS: 93922; 93926

== ENCOUNTER → 2023-08-04 | Outpatient (CLI) | payer SELFPAY | END | disposition home or self-care (01) | PROVIDERS: Visit Provider Podiatrist Foot & Ankle Surgery | DX: L97.919 Non-pressure chronic ulcer of unspecified part of right lower leg with unspecified severity (principal) | CPT/HCPCS: 87070; 87075; 87077; 87101; 87186; 87205 ==

== ENCOUNTER → 2023-08-16 | Outpatient (CLI) | payer SELFPAY ==
--- NOTE | 2023-08-16 08:45 | ART_ITS ---
Reason For Study: aftercare following surgery Procedure A bilateral lower extremity continuous wave Doppler with analog waveform analysis and ankle brachial indexes. Prelim to Dr. Ortiz's office. Left Segmental Pressures Left brachial= 149mmHg. Left posterior tibial artery = 146mmHg. Left dorsalis pedis artery = 166mmHg. Left digit = 77 mmHg. The left posterior tibial artery waveforms are biphasic. The left dorsalis pedis waveforms are triphasic. Right Segmental Pressures Right brachial= 157mmHg. Right dorsalis pedis artery = 50mmHg. The right dorsalis pedis waveforms are monophasic. Unable to obtain flow inthe [employer] and digit. Indices The right ankle brachial index by the dorsalis pedis is .32. Unable to obtain flow inthe [employer] and digit. The left ankle brachial index by the dorsalis pedis is 1.06. The left ankle brachial index by the posterior tibial artery is .93. The left digital-brachial index is .49. VL/Ankle Brachial Index Interpretation Summary Right MAKAYLA 0.32, critical arterial insufficiency. Doppler/PVR waveforms of the r ight ankle critically diminished Left MAKAYLA 1.06, normal. Doppler/PVR waveforms of the left ankle normal at rest. TBI diminished, pedal/digit disease vs spasm. Ordering Physician: Jillian Cao Referring Physician: JILLIAN CAO Performed By: Aldo Peña RVT
--- NOTE | 2023-08-16 08:45 | ADUL_ITS ---
Reason For Study: aftercare following surgery Right Velocities Ext. Iliac Artery, dist = 105.2 cm./sec. Common Femoral Artery, mid = 66.8 cm./sec. Supf Femoral Artery, prox = 65.0 cm./sec. Supf Femoral Artery, mid = 48.6 cm./sec. Supf Femoral Artery, dist. = 8.3 cm./sec. Profunda Femoral Artery = 74.2 cm./sec. Peroneal Artery, prox = 18.9 cm./sec. Ant. Tibial Artery, prox = 19.6 cm./sec. Ant. Tibial Artery, mid = 11.8 cm./sec. Ant. Tibial Artery, dist = 11.8 cm./sec. Distal SFA, POP A, PSYCHOLOGY PHYSICIAN and mid and distal Peroneal A appear to be occluded. Procedure The exam was diagnostic. Prelim to Dr. Ortiz's office. /US Art Duplex Unilat Lower Ext Interpretation Summary Right SFA/popliteal stent occluded. Posterior tibial artery and distal peroneal artery occluded. Anterior tibial artery patent with diminished waveforms/velocities. Ordering Physician: Jillian Cao Referring Physician: Jillian Cao Performed By: Aldo Peña, RVT
== END | disposition home or self-care (01) ==
PROVIDERS: PCP Family Medicine; Referring Provider Physician Assistant; Visit Provider Physician Assistant
DX: Z48.812 Encounter for surgical aftercare following surgery on the circulatory system (principal); I70.261 Atherosclerosis of native arteries of extremities with gangrene, right leg; L97.515 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 without evidence of necrosis
CPT/HCPCS: 93922; 93926

== ENCOUNTER 2023-08-24 23:03 | Inpatient (IN) | payer SELFPAY ==
[2023-08-24 23:04] VITALS: BP 154/62; PULSE 107; RESP 16; TEMP 36.2; O2SAT 98
[2023-08-25] VITALS (11 sets, daily range): BP systolic 110–152; BP diastolic 48–80; PULSE 65–100; RESP 16–17; TEMP 36.6–37.1; O2SAT 93–99; BMI 34.0; BMI 33.1
--- NOTE | 2023-08-25 03:45 | CT_ITS ---
CT angiogram of the abdominal aorta with bilateral lower extremity runoff with MIP reconstructions Clinical history: PAD Technique: Multiple helical CT images were obtained from the domes the diaphragms to level of feet after intravenous administration of iodinated contrast with transaxial, coronal and sagittal multiplanar reconstructions. On a separate workstation, 3-dimensional reconstructions were obtained of the arterial vasculature using volume rendering technique and maximal intensity projection technique as per departmental protocol. The protocol utilizes one or more of the following dose reduction techniques: automated exposure control, adjustment of mA and/or kV according to patient size,and/or use of iterative reconstruction technique. RADIATION DOSAGE (If Supplied By Facility): CTDIvol = ( 9.93 ) mGy, DLP = ( 1375.64 ) mGycm COMPARISON: Prior study dated: 02/21/2023 FINDINGS: ABDOMEN / PELVIS: The visualized portions of the liver are unremarkable. The visualized portions of the spleen and pancreas appear to be within normal limits. The gallbladder is unremarkable. The kidneys are unremarkable. The small bowel is normal in caliber. No obstruction. Moderate diffuse colonic stool burden. No wall thickening. Appendix not seen. The pelvic structures appear normal. No acute osseous abnormality. The soft tissues of the lower extremities show no acute abnormality. VASCULAR STRUCTURES: There appears to be good opacification and patency of the visualized abdominal aorta. Mild atherosclerotic calcification. There appears to be good opacification and patency of the celiac trunk, superior mesenteric artery. There appears to be good opacification and patency noted of the RIGHT and LEFT renal arteries. There appears to be good opacification and patency noted of the inferior mesenteric artery. ARTERIAL STRUCTURES OF THE RIGHT LOWER EXTREMITY: Common iliac artery: Appears patent with good opacification. External iliac artery: Appears patent with good opacification. Internal iliac arteries: Appears patent with good opacification. Mild atherosclerotic calcification. Common femoral artery: Appears patent with good opacification. Superficial femoral arteries: There is a stent in place throughout. The vessel is opacified from the proximal to mid aspect.. The vessel is not opacified distally. Popliteal artery: Not opacified.. Anterior tibial artery: There is reconstitution of flow. Appears patent with good opacification. Posterior tibial artery: Poorly opacified along its course with multifocal calcification.. Peroneal artery: Appears patent with opacification. ARTERIAL STRUCTURES OF THE LEFT LOWER EXTREMITY: Common iliac artery: Appears patent with good opacification. External iliac artery: Appears patent with good opacification. Internal iliac arteries: Appears patent with good opacification. Common femoral artery: Appears patent with good opacification. Superficial femoral arteries: Stent in place. Appear patent with good opacification. Popliteal artery: Appears patent with good opacification. Anterior tibial artery: Appears patent with good opacification. Mild irregularity along its course. Posterior tibial artery: Appears patent with good opacification. Multifocal stenosis throughout. Peroneal artery: Appears patent with opacification. CT/CTA Abd w/Runoff W/WO Contrast IMPRESSION: 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 Reconstitution of flow in the calf vessels. Mild irregularity of the left lower extremity calf vessels. Patent left SFA stent. Electronically Signed: Markos Frye MD at 5:10 EDT Reading Location ID and State: [facility] / [place] Tel , Service support ,
[2023-08-25] MEDS: Morphine 4 MG/ML Syringe IV (03:55)
[2023-08-25] MEDS: Ondansetron 4 MG/2 ML Vial IV (03:55)
[2023-08-25] MEDS: 0.9% Normal Saline (1000mL) 1,000 ML 999 ML IV (03:55)
[2023-08-25 04:02] LABS: Basophil# 0.02 X10^3/uL; Basophil% 0.3 % (0-1); Eosinophil# 0.21 X10^3/uL; Hemoglobin 9.5 g/dL (12.0-15.0); Lymphocyte % 29.7 % (19-41); Mean Corp Hgb Conc 31.7 g/dL (32-36); Mean Corpuscular Hgb 25.3 pg (27.0-32.0); Mean Platelet Vol. 9.9 fl (6.2-12.0); Monocyte# 0.78 X10^3/uL; NRBC Flagged by Analyzer 0 % (0-5); Neutrophil # 3.96 X10^3/uL (2.7-7.7); Neutrophil % 55.9 % (47-70); Platelet Count 267 K/mm3 (150-450); RBC Distribution Width CV 16.5 % (11.6-14.6); Red Blood Count 3.75 M/mm3 (4.2-5.4); White Blood Count 7.1 K/mm3 (4.4-11.0)
[2023-08-25 04:12] LABS: International Normalized Ratio 1.7; Partial Thromboplast Time 30.7 Seconds (24.1-36.2); Prothrombin Time (Protime)PT. 19.9 SECONDS (11.7-14.9)
[2023-08-25 04:18] LABS: Anion Gap 5 (5-15); BUN 28 mg/dL (7-18); BUN/Creat Ratio 38.6 RATIO (10-20); Calcium,Total 9.3 mg/dL (8.5-10.1); Chloride 105 mmol/L (98-107); Creatinine, Serum 0.73 mg/dL (0.55-1.02); EST Glomerular Filtration Rate 87 mL/min (>60); Est Glom Filt Rate - Afr Amer 106 mL/min (>60); Glucose 123 mg/dL (74-106); Magnesium 1.4 mg/dL (1.6-2.6); Potassium 4.3 mmol/L (3.5-5.1); Sodium Level 136 mmol/L (136-145)
[2023-08-25 04:43] LABS: Lactic Acid 1.2 mmol/L (0.4-1.9)
--- NOTE | 2023-08-25 06:10 | EDS_ITS ---
HPI History of Present Illness Chief Complaint: Lower Extremity Injury Informant: patient and family Narrative Narrative: Patient is a 58-year-old female with past medical history of hypertension hyperlipidemia diabetes as well as peripheral arterial disease currently on Xarelto. She states she has a stent placed in both her right and left leg secondary to her PAD. She reports that over the last few days she has been having increasing pain as well as increased numbness tingling weakness. She states she has been taking her medications as directed. She reports she contacted her vascular surgeon who advised her that with her worsening symptoms she should come to the hospital for evaluation [facility] Medical History Wears glasses Wears dentures Post-menopausal Diabetes High cholesterol Back pain Migraine headache Injury of head and neck Dietary restriction Shortness of breath on exertion Non-smoker History of pain when walking History of edema Heart murmur Home Medications ?Medication ?Instructions ?Recorded ?Last Taken ?Type metformin 1,000 mg tablet 1,000 mg PO BID 01/12/23 03/03/23 History aspirin 81 mg tablet,delayed 81 mg PO DAILY #30 tabs 02/01/23 Unknown Rx release (Adult Aspirin Regimen) lisinopril 10 mg tablet 10 mg PO DAILY 02/01/23 Unknown History atorvastatin 40 mg tablet 40 mg PO QHS #30 tabs 04/28/23 Unknown Rx clopidogrel 75 mg tablet (Plavix) 75 mg PO DAILY 04/28/23 Unknown History rivaroxaban 20 mg tablet (Xarelto) 20 mg PO DAILY #30 tabs 08/16/23 Unknown Rx Allergy/AdvReac Type Severity Reaction Status Date / Time No Known Allergies Allergy Verified 08/24/23 23:04 Family History Other CAD (coronary artery disease) Diabetes Heart disease Myocardial infarction Surgical History No history of previous surgery Social History Smoking Status: Never smoker ROS ROS ED Constitutional Constitutional ED: Denies chills or fever(s) Eyes Eyes: Denies change in vision ENT ENT ED: Denies sore throat Cardiovascular Cardiovascular: Denies chest pain, palpitations or racing heartbeat Respiratory/Chest Respiratory/Chest: Denies cough or dyspnea Gastrointestinal Gastrointestinal: Denies abdominal pain, diarrhea, nausea or vomiting Genitourinary Genitourinary ED: Denies dysuria Musculoskeletal Musculoskeletal: Reports other Details: Positive right leg pain Integumentary Denies rash Neurologic Neurologic: Reports paresthesias and weakness; Denies headache(s) Hematologic/Lymphatic Hematologic/Lymphatic: Reports easy bleeding and easy bruising EXAM Physical Exam Const Vital Signs: 08/24/23 23:04 08/25/23 01:04 08/25/23 03:00 Temperature 97.1 F L 98 F Temperature Source Temporal Temporal Pulse Rate 107 H 95 65 Respiratory Rate 16 16 16 Blood Pressure 154/62 H 150/70 H 110/80 Blood Pressure Mean 92 96 90 Pulse Ox 98 99 99 Oxygen Delivery Method Room Air Room Air Room Air 08/25/23 05:00 08/25/23 06:01 Temperature 97.8 F Temperature Source Pulse Rate 69 100 Respiratory Rate 16 17 Blood Pressure 138/67 H 138/67 H Blood Pressure Mean 90 90 Pulse Ox 98 97 Oxygen Delivery Method Room Air Positive well nourished and well developed General Appearance ED: well developed HEENT HEENT Narrative: Normocephalic atraumatic Eyes PERRL and EOMs intact bilaterally General Eye ED: Negative for pale conjunctiva or scleral icterus Neck supple Resp normal respiratory effort and clear to auscultation bilaterally Cardio regular rate and regular rhythm Rate: other Other Details: Radial and carotid pulses are equal and symmetric Extremity Extremity Narrative: The foot of the right lower extremity is dusky and cool compared to the left and patient's capillary refill on the right is 4 to 5 seconds compared to 2 seconds on left. There is a strong left dorsalis pedis pulse but a faint/weak right dorsalis pedis pulse. Patient is able to plantar and dorsiflex at the right ankle but this range of motion and strength is decreased compared to the left. Temperature and color sensation changes of the right lower leg extending from the toes to approximately the right ankle. There is decreased sensation of the right foot as well compared to left. Compartments are soft going against compartment syndrome. Negative Homans' sign bilaterally Neuro oriented x3 and CN's II-XII intact bilaterally Neuro Narrative: Paresthesias and decreased strength of the right foot/ankle as documented above Sensorium / Orientation: alert Psych mental status grossly normal Skin Skin Narrative: Soft tissue changes of the right lower leg as documented above MDM MDM MDM Narrative Medical decision making narrative: Patient presented to the ER hypertensive but had a past medical history of this. She has known PAD and is currently on Xarelto and has 2 previous stents placed in the leg. Physical exam indicates decreased blood flow into the right lower leg but there is a dopplerable pulse in the right foot going against complete arterial occlusion. Basic labs were obtained and revealed no clinically significant findings and CT with runoff shows that the right superficial femoral artery is occluded distally but that there is collateral flow which correlates with her physical exam. The case was discussed with vascular surgeon Dr. Ortiz and he recommends that with the patient's report of increased pain weakness and paresthesias and the fact that the previous stent has been included that the patient be placed on heparin and admitted to the hospital for further care. History & Record Review Discussion w/independent historian: Patient and Family Lab Data Attestation: I reviewed the patient's lab results. Labs: Laboratory Results - last 24 hr 08/25/23 08/25/23 03:55 06:45 WBC 7.1 RBC 3.75 L Hgb 9.5 L Hct 30.0 L MCV 80.0 L MCH 25.3 L MCHC 31.7 L RDW Std Deviation 47.0 H RDW Coeff of Gregory 16.5 H Plt Count 267 MPV 9.9 Immature Gran % (Auto) 0.100 Neut % (Auto) 55.9 Lymph % (Auto) 29.7 [place] % (Auto) 11.0 H Eos % (Auto) 3.0 Baso % (Auto) 0.3 Absolute Neuts (auto) 4.0 Absolute Lymphs (auto) 2.10 Nucleated RBC % 0 PT 19.9 H 17.3 H INR 1.7 1.4 APTT 30.7 29.9 Sodium 136 Potassium 4.3 Chloride 105 Carbon Dioxide 26.0 Anion Gap 5 BUN 28 H Creatinine 0.73 Est GFR (MDRD) Af Amer 106 Est GFR (MDRD) Non-Af 87 BUN/Creatinine Ratio 38.6 H Glucose 123 H Lactic Acid 1.2 Calcium 9.3 Magnesium 1.4 L Radiography Diagnostic Testing: Clinical Impression(s) from Imaging Studies Abdomen/Pelvis CTA 08/25/23 03:45 IMPRESSION: 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 Reconstitution of flow in the calf vessels. Mild irregularity of the left lower extremity calf vessels. Patent left SFA stent. Electronically Signed: Markos Frye MD at 5:10 EDT , Discharge Plan Dx/Rx/DC Orders Clinical Impression: Peripheral arterial disease, Superficial femoral artery occlusion, Diabetes, Hypertension Disposition Disposition: Acute Care Hospital [facility] Discharge Date/Time: 08/25/23 07:02
[2023-08-25] MEDS: Heparin Injection (Vial) 5,000 UNIT/ML VIAL 4000 UNIT IV (06:50)
[2023-08-25] MEDS: HEPARIN/D5w 25,000 UNITS 25,000 UNITS/250 ML IV.SOLN. 9 UNITS CONT INF (06:54)
[2023-08-25 07:13] LABS: International Normalized Ratio 1.4; Prothrombin Time (Protime)PT. 17.3 SECONDS (11.7-14.9)
[2023-08-25 07:14] LABS: Partial Thromboplast Time 29.9 Seconds (24.1-36.2)
--- NOTE | 2023-08-25 07:16 | VDLE_ITS ---
Reason For Study: Preoperative planning RIGHT LEFT GSV prox thigh, 0.19 x 0.19 cm. GSV prox thigh, 0.45 x 0.45 cm. GSV mid thigh, 0.17 x 0.17 cm. GSV mid thigh, 0.32 x 0.33 cm. GSV distal thigh, 0.26 x 0.25 cm. GSV distal thigh, 0.28 x 0.29 cm. GSV knee, 0.32 x 0.34 cm. GSV knee, 0.33 x 0.32 cm. GSV prox calf, 0.26 x 0.28 cm. GSV prox calf, 0.26 x 0.23 cm. GSV mid calf, 0.29 x 0.31 cm. GSV mid calf, 0.25 x 0.27 cm. GSV distal calf, 0.21 x 0.24 cm. GSV distal calf, 0.30 x 0.29 cm. SSV prox, 0.34 x 0.37 cm. SSV prox, 0.30 x 0.32 cm. SSV mid, 0.31 x 0.33 cm. SSV mid, 0.20 x 0.19 cm. SSV distal, 0.26 x 0.29 cm. SSV distal, 0.24 x 0.27 cm. ASV mid calf, 0.21 x 0.28 cm. GSV and SSV are compressible. ASV distal calf, 0.21 x 0.22 cm. GSV, SSV and ASV are compressible. Procedure This is a venous duplex using B-mode, color flow and spectral Doppler. Exam performed portable in patient room. VL/Saphenous Vein Mapping, Bilat Interpretation Summary Right great saphenous vein patent with measurements above. Left great saphenous vein patent with measurements above. Right small saphenous vein patent with measurements above. Left small saphenous vein patent with measurements above. Ordering Physician: Jillian Cao Referring Physician: Josiah Lerma Performed By: Vero Gonzalez RVT
--- NOTE | 2023-08-25 09:05 | ECHOD_ITS ---
Reason For Study: ASHD/CAD Procedure This was a 2D Doppler, Color Flow transthoracic echocardiogram. Exam performed portable in patient room. Left Ventricle Normal LV size. Mild concentric left ventricular hypertrophy. Left ventricular systolic function is normal. The estimated ejection fraction is 70 %. Stage 1 diastolic dysfunction. No regional wall motion abnormalities noted. Right Ventricle Normal RV size. Normal systolic function. Atria Normal left atrium. Normal right atrium. Mitral Valve There is mild to moderate mitral annular calcification. Tricuspid Valve Normal tricuspid valve. Aortic Valve Trisinus/trileaflet aortic valve. Mild focal aortic valve calcification. Mild aortic stenosis. Pulmonic Valve Normal pulmonic valve. Great Vessels Normal aortic root. The pulmonary artery is normal size. Normal inferior vena cava. Pericardium/Pleural No pericardial effusion. MMode/2D Measurements & Calculations LVIDd: 4.3 cm IVSd: 1.2 cm Ao root diam: 2.8 cm LVIDs: 2.4 cm LVPWd: 1.2 cm RVDd: 2.2 cm FS: 43.8 % LAV(MOD-bp): 47.5 ml LVAd ap4: 24.0 cm2 SV(MOD-sp4): 53.1 ml LAV(MOD-bp) Indexed: 27.3 ml/m2 LVLd ap4: 7.2 cm LAV(MOD-sp2): 44.7 ml EDV(MOD-sp4): 68.8 ml LAV(MOD-sp4): 47.0 ml EDV(sp4-el): 67.4 ml LVAs ap4: 10.0 cm2 LVLs ap4: 5.6 cm ESV(MOD-sp4): 15.7 ml ESV(sp4-el): 15.0 ml EF(MOD-sp4): 77.2 % EF(sp4-el): 77.7 % SV(sp4-el): 52.3 ml LA A4 area: 17.9 cm2 LA dimension(2D): 3.4 cm RA A4 area: 8.8 cm2 TAPSE: 2.0 cm Time Measurements MV dec time: 0.20 sec Doppler Measurements & Calculations MV E max giovanny: 113.5 cm/sec Lat Peak E' Giovanny: 8.9 cm/sec Med Peak E' Giovanny: 6.8 cm/sec MV A max giovanny: 143.4 cm/sec E/E' lat: 12.8 E/E' med: 16.7 MV E/A: 0.79 MV V2 max: 152.0 cm/sec MV P1/2t max giovanny: 110.2 cm/sec Ao V2 max: 186.3 cm/sec MV max P.2 mmHg MV P1/2t: 67.8 msec Ao max P.9 mmHg MV V2 mean: 83.6 cm/sec Ao V2 mean: 122.3 cm/sec MV mean P.2 mmHg MV dec slope: 476.0 cm/sec2 Ao mean P.0 mmHg MV V2 VTI: 31.0 cm MVA(P1/2t): 3.2 cm2 Ao V2 VTI: 39.4 cm AV (velocity ratio): 0.64 LV V1 max: 113.3 cm/sec PA V2 max: 99.7 cm/sec LV V1 max P.1 mmHg PA V2 mean: 63.4 cm/sec LV V1 mean P.7 mmHg PA V2 VTI: 19.6 cm LV V1 mean: 77.9 cm/sec LV V1 VTI: 25.0 cm ECHO/Echo Complete Interpretation Summary Normal LV size. Left ventricular systolic function is normal. The estimated ejection fraction is 70 %. Stage 1 diastolic dysfunction. There is mild to moderate mitral annular calcification. Ordering Physician: Iván Bragg Referring Physician: Josiah Lerma Performed By: Asya Padilla, ABBI, RVT
--- NOTE | 2023-08-25 09:08 | PCM.HP.STD ---
HPI - General General Date of Admission: 08/25/23 Date of Service: 08/25/23 HPI Narrative JEROD TODD, is a 58 F who presented to the [facility] ER on 08/25/23 with worsening pain and increased numbness/tingling in her R foot. She is well known to our office. She is s/p R popliteal atherectomy/stent and R peroneal angioplasty on 03/03/23 which was completed to improve inflow prior to her R fifth toe amputation on 03/07/23. She did end up healing well from this amputation. Unfortunately, about 5-6 weeks ago she had recurrence of her RLE claudication with intermittent rest pain which has progressively worsened. She also has a R medial calf wound which has been present about 8 weeks and now with delayed healing. She had arterial studies on 08/16/23 showing R MAKAYLA 0.32 and duplex showing occluded SFA/pop stent, PT and distal peroneal occlusion, and AT with diminished waveforms. I saw her on an outpatient basis at which time her symptoms had been stable for several weeks. I had initiated Xarelto and planned for outpatient imaging and intervention if possible. CTA was completed today which confirmed SFA/pop occlusion and significant stenosis though the PT. She was admitted for pain management and more urgent vascular intervention. It is important to note that on an outpatient basis, had some inconsistency with antiplatelet regimen due to some recurrent nosebleeds. Otherwise, she has no significant complaints. She has a history of cardiac murmur. No history of prior coronary interventions, arrhythmias, heart failure. She is a type 2 diabetic. She does follow with podiatry Dr. Stoner as an outpatient for care of her R distal calf wound. [facility] Medical History Wears glasses Wears dentures Post-menopausal Diabetes High cholesterol Back pain Migraine headache Injury of head and neck Dietary restriction Shortness of breath on exertion Non-smoker History of pain when walking History of edema Heart murmur Home Medications ?Medication ?Instructions ?Recorded ?Last Taken ?Type metformin 1,000 mg tablet 1,000 mg PO BID diabetes 01/12/23 08/24/23 History aspirin 81 mg tablet,delayed 81 mg PO DAILY #30 tabs 02/01/23 08/18/23 Rx release (Adult Aspirin Regimen) lisinopril 10 mg tablet 10 mg PO DAILY blood pressure 02/01/23 08/24/23 History atorvastatin 40 mg tablet 40 mg PO QHS #30 tabs 04/28/23 08/24/23 Rx clopidogrel 75 mg tablet (Plavix) 75 mg PO DAILY blood thinner 04/28/23 08/24/23 History rivaroxaban 20 mg tablet (Xarelto) 20 mg PO DAILY #30 tabs 08/16/23 08/24/23 Rx gentamicin 0.1 % topical cream 1 applic topical BID wound on left 08/25/23 08/24/23 History leg Allergy/AdvReac Type Severity Reaction Status Date / Time No Known Allergies Allergy Verified 08/24/23 23:04 Family History Other CAD (coronary artery disease) Diabetes Heart disease Myocardial infarction Surgical History No history of previous surgery Social History Smoking Status: Never smoker Vital Signs Vital Signs Vital Signs: 08/24/23 23:04 08/25/23 01:04 08/25/23 03:00 Temperature 97.1 F L 98 F Temperature Source Temporal Temporal Pulse Rate 107 H 95 65 Respiratory Rate 16 16 16 Respiratory Effort Respiratory Depth Respiratory Pattern Blood Pressure 154/62 H 150/70 H 110/80 Blood Pressure Mean 92 96 90 Blood Pressure Source Blood Pressure Position Blood Pressure Location Pulse Ox 98 99 99 Oxygen Delivery Method Room Air Room Air Room Air 08/25/23 05:00 08/25/23 06:01 08/25/23 07:46 Temperature 97.8 F 98.1 F Temperature Source Oral Pulse Rate 69 100 89 Respiratory Rate 16 17 16 Respiratory Effort Respiratory Depth Respiratory Pattern Blood Pressure 138/67 H 138/67 H 131/72 H Blood Pressure Mean 90 90 91 Blood Pressure Source Monitor Blood Pressure Position Semi-Fowlers Blood Pressure Location Right Arm Pulse Ox 98 97 94 Oxygen Delivery Method Room Air Room Air 08/25/23 08:41 Temperature Temperature Source Pulse Rate Respiratory Rate Respiratory Effort Normal Non-Labored Respiratory Depth Normal Respiratory Pattern Normal Blood Pressure Blood Pressure Mean Blood Pressure Source Blood Pressure Position Blood Pressure Location Pulse Ox Oxygen Delivery Method Room Air Weight Weight: 169 lb 12.095 oz Body Mass Index (BMI) 33.1 Physical Exam Const alert, oriented x3 and no apparent distress General Appearance: cooperative HEENT normocephalic, head/scalp atraumatic, hearing grossly normal bilaterally, external ears normal and external nose normal Eyes EOMs intact bilaterally General Eye: normal appearance of both eyes Neck General: normal visual inspection and trachea midline Resp normal respiratory effort, normal air movement, no retractions, no use of accessory muscles and clear to auscultation bilaterally Effort and Inspection: able to speak in complete sentences; Negative for labored, stridor, retractions or audible wheezes Cardio regular rate and regular rhythm Extremity Extremity Narrative: R DP monophasic by doppler, R PT nondopplerable. R foot on inspection at rest today is noted to be pink in color, slightly cooler compared to L. Motor function is intact. L DP and PT with biphasic doppler signals. Skin Wounds: wounds noted Wound Narrative: Wound noted to the R medial calf. There is significant slough in the wound bed, no surrounding erythema/focal swelling. No foul odor appreciated. No significant drainage noted. Psych mental status grossly normal Appearance: grossly normal Attitude: calm and engaged Activity / Motor Behavior: appropriate eye contact Speech: normal speech Judgement: judgement good Results Lab / Micro Data 08/25/23 03:55 08/25/23 03:55 Labs: Laboratory Results - last 24 hr 08/25/23 03:55: WBC 7.1, RBC 3.75 L, Hgb 9.5 L, Hct 30.0 L, MCV 80.0 L, MCH 25.3 L, MCHC 31.7 L, RDW Std Deviation 47.0 H, RDW Coeff of Gregory 16.5 H, Plt Count 267, MPV 9.9, Immature Gran % (Auto) 0.100, Neut % (Auto) 55.9, Lymph % (Auto) 29.7, [place] % (Auto) 11.0 H, Eos % (Auto) 3.0, Baso % (Auto) 0.3, Absolute Neuts (auto) 4.0, Absolute Lymphs (auto) 2.10, Nucleated RBC % 0, PT 19.9 H, INR 1.7, APTT 30.7, Sodium 136, Potassium 4.3, Chloride 105, Carbon Dioxide 26.0, Anion Gap 5, BUN 28 H, Creatinine 0.73, Est GFR (MDRD) Af Amer 106, Est GFR (MDRD) Non-Af 87, BUN/Creatinine Ratio 38.6 H, Glucose 123 H, Lactic Acid 1.2, Calcium 9.3, Magnesium 1.4 L 08/25/23 06:45: PT 17.3 H, INR 1.4, APTT 29.9 Imaging Radiology Impression Abdomen/Pelvis CTA 08/25/23 03:45 IMPRESSION: 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 Reconstitution of flow in the calf vessels. Mild irregularity of the left lower extremity calf vessels. Patent left SFA stent. Electronically Signed: Markos Frye MD at 5:10 EDT , Assessment & Plan Assessment/Plan (1) Superficial femoral artery occlusion: (2) Peripheral arterial disease: PLAN: Plan Given failure of her stents in relatively short interval, best interventional option is likely fem-pop bypass. Will obtain vein mapping to see if she has adequate [place] vein. Will see what OR time is available. Continue heparin drip. Continue Plavix for now. Will consult cardiology for preoperative risk assessment, appreciate their input in advance.
--- NOTE | 2023-08-25 09:59 | WOUNDNOTE ---
wound photo: right posterior lower leg
[2023-08-25] MEDS: 0.9% Normal Saline (1000mL) 1,000 ML 75 ML IV ×2 (10:20→23:35)
[2023-08-25] MEDS: Lisinopril 10 MG Tablet PO (10:28)
--- NOTE | 2023-08-25 12:11 | CASEMGMT ---
RN CM head filter tank tender helper CM to pt room at this time for initial assessment. Pt is currently off of the floor at stress test. Pt sister (Mayra) is at the bedside and willing to answer this RN CM questions for assessment. Care providers, pharmacy, and demographics verified. Admitting dx: Superficial Femoral Artery Occlusion PCP: Josiah Lerma Specialists: Pt sees an Eye doctor in [place] d/t her DM. Mayra states that the pt DM is managed through her PCP Preferred Pharmacy: [facility] in [place] Insurance: Pt is SP. Pt and family were provided with information regarding this. LNOK: Farrukh Marcial (Brother), Mayra Sousa (Sister) Living Arrangements: Pt lives with her mother in a 2 story home with a FFSU and 3 steps to enter. Mayra states that the pt have great family support at home. ADLs/IADLs: Ind with ADLs. Pt family can assist with IADLs if needed Transportation: Self, family DME: Working [employer] and supplies. W/C. BP Cuff. Knee scooter HHC/SNF: Denies history. Wound: Pt has a wound to her lower extremity that she follows with Dr. Stoner's office. Mayra states that the pt mother tends to this at home and denies further concerns. Plan: Anticipate DC home with no needs. No PT/OT ordered on this pt. Mayra states that the pt has the following family members as support at home (or close to home): pt mother, siblings, nieces, and nephews. Pt sister denies further questions or concerns at this time. CM to follow to ensure safe DC from [facility]. Magdalena Norris RN, CM
--- NOTE | 2023-08-25 12:59 | STRESSREP ---
Stress Test Report Pharmacologic myocardial perfusion stress test. 58-year-old lady with peripheral vascular disease for preoperative cardiac evaluation. Resting EKG demonstrates sinus rhythm with a rate of 93 bpm. Right bundle branch block is noted. Resting blood pressure is 128/64 mmHg. 0.4 mg of regadenoson was infused per usual protocol followed by rapid intravenous saline flush injection. Continuous EKG monitoring was performed. The maximum heart rate was 113 bpm which was 69% of max impacted heart rate the maximum workload was 1 metabolic equivalent. At rest there were no ST or T wave changes noted to suggest ischemia and at peak infusion nonspecific ST changes were noted which did not meet the criteria for ischemia. No clinical angina is noted. The final blood pressure was 138/64 mmHg. Myocardial perfusion protocol. 12.0 mCi of technetium 99m sestamibi was injected at rest. 0.4 mg of regadenoson was infused per usual protocol. At peak infusion 32.7 mCi of technetium 99m sestamibi was injected stress images were obtained stress and rest images were reconstructed and compared in the short axis vertical long and horizontal long axis. Gated images were also obtained. Perfusion SPECT analysis: Review of the stress images demonstrate normal uptake of tracer noted in all areas of the myocardium. The resting images similar demonstrated normal uptake of tracer noted in all areas of the myocardium. No areas of reversibility are noted to suggest ischemia and no previous infarct is noted. Gated SPECT analysis: The gated ejection fraction is 82%. Conclusion: Normal pharmacologic myocardial perfusion stress test. Preserved ejection fraction.
--- NOTE | 2023-08-25 13:08 | CON.PCM.CA_ITS ---
Assessment & Plan Assessment/Plan (1) Preop cardiovascular exam: PLAN: In terms of preoperative evaluation the patient underwent an echocardiogram which demonstrated preserved ejection fraction with mitral calcification and a pharmacologic myocardial perfusion stress test which demonstrated no evidence of ischemia. On the basis of the above I suspect that her risk for operative vascular surgery for perioperative event is likely less than 3.3%. I would recommend proceeding without any further cardiac testing. The above has been communicated with the vascular surgeons office. (2) Hypertension: PLAN: Continue current aggressive risk factor modification and blood pressure management. Thank you for allowing me to participate in the care of your patient. Please don't hesitate to call if any issues arise. HPI Consult Data Date of Consult: 08/25/23 HPI Narrative HPI Narrative: JEROD TODD, is a 58 F who presents for preoperative cardiac evaluation. She does have a history of hypertension, hyperlipidemia, diabetes mellitus, peripheral vascular disease who has had bilateral stent placement secondary to peripheral artery disease. She was recently seen by the vascular surgeon who advised her that due to her worsening symptoms she should present for evaluation. It appears that patient is being scheduled for open vascular surgery. Cardiology was called for further evaluation and management. She denies any chest pain or shortness of breath or paroxysmal nocturnal dyspnea or pedal edema. She has been noted on previous testing to have posterior tibial and peroneal artery occlusion as well as an tibial artery diminished waveforms. She also has been having some restless leg discomfort. [facility] Medical History Wears glasses Wears dentures Post-menopausal Diabetes High cholesterol Back pain Migraine headache Injury of head and neck Dietary restriction Shortness of breath on exertion Non-smoker History of pain when walking History of edema Heart murmur Home Medications ?Medication ?Instructions ?Recorded ?Last Taken ?Type metformin 1,000 mg tablet 1,000 mg PO BID diabetes 01/12/23 08/24/23 History aspirin 81 mg tablet,delayed 81 mg PO DAILY #30 tabs 02/01/23 08/18/23 Rx release (Adult Aspirin Regimen) lisinopril 10 mg tablet 10 mg PO DAILY blood pressure 02/01/23 08/24/23 History atorvastatin 40 mg tablet 40 mg PO QHS #30 tabs 04/28/23 08/24/23 Rx clopidogrel 75 mg tablet (Plavix) 75 mg PO DAILY blood thinner 04/28/23 08/24/23 History rivaroxaban 20 mg tablet (Xarelto) 20 mg PO DAILY #30 tabs 08/16/23 08/24/23 Rx gentamicin 0.1 % topical cream 1 applic topical BID wound on left 08/25/23 08/24/23 History leg Allergy/AdvReac Type Severity Reaction Status Date / Time No Known Allergies Allergy Verified 08/24/23 23:04 Family History Other CAD (coronary artery disease) Diabetes Heart disease Myocardial infarction Surgical History No history of previous surgery Social History Smoking Status: Never smoker ROS Constitutional Constitutional: Denies fever(s) or weight loss Eyes Eyes: Reports systems reviewed and no addt'l complaints, except as documented ENT HEENT: Reports systems reviewed and no addt'l complaints, except as documented Cardiovascular Cardiovascular: Denies chest pain at rest, chest pain with activity, dyspnea at rest, dyspnea on exertion, edema, palpitations or paroxysmal nocturnal dyspnea Respiratory/Chest Respiratory/Chest: Denies dyspnea on exertion, productive cough, shortness of breath at rest or shortness of breath with exertion Gastrointestinal Gastrointestinal: Denies change in bowel habits, nausea, vomiting or weight changes Genitourinary Genitourinary: Denies difficulty urinating Musculoskeletal Musculoskeletal: Denies joint stiffness or muscle weakness Integumentary Integumentary: Denies lesions Neurologic Neurologic: Denies dizziness or syncope Psychiatric Psychiatric: Denies anxiety Endocrine Endocrinology: Denies excessive sweating or fatigue Hematologic/Lymphatic Hematologic/Lymphatic: Denies anemia Allergic/Immunologic Allergic/Immunologic: Denies seasonal rhinorrhea Physical Exam Const alert, oriented x3 and no apparent distress General Appearance: cooperative HEENT hearing grossly normal bilaterally Head and Scalp: atraumatic Eyes EOMs intact bilaterally Neck General: normal visual inspection Chest inspection of chest normal and palpation of chest normal Resp normal respiratory effort Auscultation: clear to auscultation bilaterally Cardio regular rate, regular rhythm, S1 normal heart sound and S2 normal heart sound Jugular Venous Distention: JVD GI normal to inspection, nondistended, normoactive bowel sounds Extremity normal capillary refill and no pedal edema Peripheral Pulses: Yes pulses 2+ throughout and femoral pulses present Skin no rashes or lesions noted Neuro oriented x3 and CN's II-XII intact bilaterally Psych Appearance: grossly normal and appropriate Risk Stratification Risk Stratification Applicable: No Objective Data Vital Signs: Vital Signs Temp Pulse Resp BP Pulse Ox O2 Del Method 98.1 F 89 16 152/76 H 98 Room Air 08/25/23 07:46 08/25/23 07:46 08/25/23 07:46 08/25/23 10:29 08/25/23 09:21 08/25/23 09:21 Oxygen Delivery Method Room Air Weight: 169 lb 12.095 oz Body Mass Index (BMI) 33.1 Intake & Output: Intake and Output for Last 24 Hours 08/23/23 08/24/23 08/25/23 23:59 23:59 23:59 Intake Total 1000 / 1000 Balance 1000 / 1000 Lab / Micro Data 08/25/23 03:55 08/25/23 03:55 Labs: Laboratory Results - last 24 hr 08/25/23 03:55: WBC 7.1, RBC 3.75 L, Hgb 9.5 L, Hct 30.0 L, MCV 80.0 L, MCH 25.3 L, MCHC 31.7 L, RDW Std Deviation 47.0 H, RDW Coeff of Gregory 16.5 H, Plt Count 267, MPV 9.9, Immature Gran % (Auto) 0.100, Neut % (Auto) 55.9, Lymph % (Auto) 29.7, [place] % (Auto) 11.0 H, Eos % (Auto) 3.0, Baso % (Auto) 0.3, Absolute Neuts (auto) 4.0, Absolute Lymphs (auto) 2.10, Nucleated RBC % 0, PT 19.9 H, INR 1.7, APTT 30.7, Sodium 136, Potassium 4.3, Chloride 105, Carbon Dioxide 26.0, Anion Gap 5, BUN 28 H, Creatinine 0.73, Est GFR (MDRD) Af Amer 106, Est GFR (MDRD) Non-Af 87, BUN/Creatinine Ratio 38.6 H, Glucose 123 H, Lactic Acid 1.2, Calcium 9.3, Magnesium 1.4 L 08/25/23 06:45: PT 17.3 H, INR 1.4, APTT 29.9 Cardiology Labs/Tests 08/25/23 03:55: WBC 7.1, RBC 3.75 L, Hgb 9.5 L, Hct 30.0 L, MCV 80.0 L, MCH 25.3 L, MCHC 31.7 L, Plt Count 267, MPV 9.9, Immature Gran % (Auto) 0.100, Neut % (Auto) 55.9, Lymph % (Auto) 29.7, [place] % (Auto) 11.0 H, Eos % (Auto) 3.0, Baso % (Auto) 0.3, Absolute Neuts (auto) 4.0, Nucleated RBC % 0, PT 19.9 H, INR 1.7, APTT 30.7, Sodium 136, Potassium 4.3, Chloride 105, Carbon Dioxide 26.0, Anion Gap 5, BUN 28 H, Creatinine 0.73, Est GFR (MDRD) Af Amer 106, Est GFR (MDRD) Non-Af 87, BUN/Creatinine Ratio 38.6 H, Glucose 123 H, Lactic Acid 1.2, Calcium 9.3, Magnesium 1.4 L 08/25/23 06:45: PT 17.3 H, INR 1.4, APTT 29.9 Rhythm: EKG: ECHO: Stress Test: Cardiac Cath: PCI: CT Surgery: Holter monitor: EPS: PPM: CXR: Chest CT Scan: Radiography Diagnostic Testing: Radiology Impression Abdomen/Pelvis CTA 08/25/23 03:45 IMPRESSION: 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 Reconstitution of flow in the calf vessels. Mild irregularity of the left lower extremity calf vessels. Patent left SFA stent. Electronically Signed: Markos Frye MD at 5:10 EDT , Echocardiogram 08/25/23 09:05 Interpretation Summary Normal LV size. Left ventricular systolic function is normal. The estimated ejection fraction is 70 %. Stage 1 diastolic dysfunction. There is mild to moderate mitral annular calcification. Ordering Physician: Iván Bragg Referring Physician: Josiah Lerma Performed By: Asya Padilla, ABBI, RVT
[2023-08-25 13:09] LABS: Partial Thromboplast Time 64.2 Seconds (24.1-36.2)
[2023-08-25] MEDS: Aspirin E.C. 81 MG Tablet PO (13:32)
[2023-08-25] MEDS: Famotidine 20 MG Tablet PO ×2 (13:32→21:35)
[2023-08-25] MEDS: Clopidogrel Bisulfate 75 MG Tablet PO (13:32)
[2023-08-25] MEDS: Docusate Sodium 100 MG Capsule PO ×2 (13:32→21:35)
--- NOTE | 2023-08-25 14:30 | CHAPLAIN ---
Type of Pastoral Visit _x__ Initial Visit ___ Follow-up Visit ___ On-call Visit ___ General Patient Visit ___ Spiritual Assessment ___ Family Conference ___ Bereavement ___ Rapid Response ___ Code Blue ___ Other (describe below) Pastoral Care Referral From _x__ Patient ___ Family ___ Nurse ___ Physician ___ School Counselor ___ Electric Train Driver ___ Other (describe below) Sacrament/Intervention _x__ Active listening ___ Anointing ___ Yazidi ___ Bereavement ___ Communion ___ Lani exploration ___ ___ Life review _x__ Prayer ___ Reconciliation ___ Sacrament of Sick ___ Supportive presence ___ Wedding ___ Other (describe below) Pastoral Comments patient and a sister are in the room; both are interactive in conversation with this applications analyst; neither gives much by way of details on medical condition; pt says that a prayer would be agreeable; no other needs are identified by patient;
[2023-08-25] MEDS: Acetaminophen 500 MG Tablet 1000 MG PO ×2 (14:58→21:35)
[2023-08-25] MEDS: Gabapentin 300 MG Capsule PO ×2 (14:58→21:36)
--- NOTE | 2023-08-25 16:15 | CASEMGMT ---
Social Work Noted patient to be self-pay status. Chart reviewed and noted patient is reported to have good family support. Presented to patient's room to check in on self-pay status and inquire whether any additional resources in the be needed or of benefit. Found patient sleeping and the family member indicating to let the patient's sleep. Will attempt to see patient at a later time. -DAYLIN Landry, OPERATING ROOM SURGICAL TECHNICIAN
--- NOTE | 2023-08-25 16:19 | CASEMGMT ---
Advance Directive Received advance directive validation notice. Chart reviewed and noted patient answered upon admission that does not have a POAHC or Living Will. Patient also declined upon admission wanting further information. No further needs identified or requested at this time. -ANNIE Landry
[2023-08-25] MEDS: Insulin Lispro 100 UNIT/ML INSULN.PEN SC ×2 (17:57→21:37)
[2023-08-25 17:58] LABS: Bedside Glucose 116 mg/dL (74-106)
[2023-08-25 17:58] LABS: Bedside Glucose 122 mg/dL (74-106)
[2023-08-25 17:58] LABS: Bedside Glucose 250 mg/dL (74-106)
[2023-08-25 19:29] LABS: Partial Thromboplast Time 51.9 Seconds (24.1-36.2)
[2023-08-25] MEDS: Atorvastatin Calcium 40 MG Tablet PO (21:35)
[2023-08-25] MEDS: GENTAMICIN SULFATE TOPICAL (21:40)
[2023-08-25 22:00] LABS: Bedside Glucose 158 mg/dL (74-106)
[2023-08-26] VITALS (23 sets, daily range): BP systolic 111–168; BP diastolic 56–85; PULSE 82–124; RESP 12–21; TEMP 36.1–37.1; O2SAT 16–99; BMI 33.1
[2023-08-26 04:30] LABS: Absolute Lymphocyte Count 1.72 X10^3/uL (0.83-4.51); Absolute Neutrophil Count 3.2 X10^3/uL (2.0-7.7); Basophil# 0.02 X10^3/uL; Basophil% 0.3 % (0-1); Eosinophils% 3.5 % (0-5); Hematocrit 30.8 % (37-47); Hemoglobin 9.5 g/dL (12.0-15.0); Lymphocyte # 1.72 X10^3/ul (0.83-4.51); Mean Corp Hgb Conc 30.8 g/dL (32-36); Mean Corpuscular Volume 81.1 fL (81-99); Monocyte# 0.58 X10^3/uL; Monocyte% 10.1 % (0-10); NRBC Flagged by Analyzer 0 % (0-5); Neutrophil # 3.21 X10^3/uL (2.7-7.7); Neutrophil % 55.9 % (47-70); Platelet Count 260 K/mm3 (150-450); RBC Distribution Width CV 16.5 % (11.6-14.6); RBC Distribution Width SD 48.5 fl (35.1-43.9); White Blood Count 5.7 K/mm3 (4.4-11.0)
[2023-08-26 04:39] LABS: Partial Thromboplast Time 59.2 Seconds (24.1-36.2)
[2023-08-26 04:44] LABS: Anion Gap 5 (5-15); BUN 14 mg/dL (7-18); Calcium,Total 8.7 mg/dL (8.5-10.1); Chloride 108 mmol/L (98-107); Creatinine, Serum 0.54 mg/dL (0.55-1.02); EST Glomerular Filtration Rate 123 mL/min (>60); Est Glom Filt Rate - Afr Amer 149 mL/min (>60); Estimated Creatinine Clearance 104.16 ml/min; Glucose 168 mg/dL (74-106); Potassium 4.1 mmol/L (3.5-5.1); Sodium Level 139 mmol/L (136-145)
[2023-08-26] MEDS: Acetaminophen 500 MG Tablet 1000 MG PO ×2 (05:29→21:38)
[2023-08-26] MEDS: Gabapentin 300 MG Capsule PO ×2 (05:29→21:39)
--- NOTE | 2023-08-26 05:46 | EKG12_ITS ---
Test Reason : AM EKG Blood Pressure : / mmHG Vent. Rate : 074 BPM Atrial Rate : 074 BPM P-R Int : 148 ms QRS Dur : 066 ms QT Int : 352 ms P-R-T Axes : 010 004 035 degrees QTc Int : 390 ms Normal sinus rhythm Low voltage QRS Borderline ECG Confirmed by CEDRICK PARK, ALTAGRACIA ([id number]), video news editor NITESH AGEE ([id number]) on 08/29/2023 12:50:24 PM Referred By: Confirmed By:ALTAGRACIA PHILIP MD
[2023-08-26 07:01] LABS: Bedside Glucose 121 mg/dL (74-106)
[2023-08-26] MEDS: Lactated Ringers 1,000 ML 15 ML IV (08:20)
--- NOTE | 2023-08-26 09:01 | PRE.ANES_ITS ---
ASA Classification* ASA Classification ASA Classification: 3 Assessment & Plan Anesthesia* Anesthesia Assessment Anesthesia Assessment: Discussed sedation and/or anesthesia options, risks, benefits, and alternatives with patient/parents/legal guardian/POA. Questions invited. The patient/parents/legal guardian/POA seems to understand and agrees to proceed with anesthesia plan. Reviewed the physical assessment, medical history, allergy history and patient home medications list prior to surgery/procedure/anesthetic and documented any changes. Performed airway and anesthesia risk assessments. Anesthesia Type Anesthesia Type: General Pre-Assessment Diagnosis/Proposed Procedure Planned Operative Procedure(s): ga Anesthesia History Anesthesia History - housekeeper and laundry assistant: Anesthesia History - housekeeper and laundry assistant Hx Hospitalization No 02/22/23 14:56 Any Problems With Anesthesia No 08/26/23 07:40 Cholinesterase deficiency No 08/26/23 07:40 You/Your Family Experience No 08/26/23 07:40 fever (hyperthermia) with Relationship Recent Exposure to Contagious No 08/26/23 07:40 Disease Does patient have nerve No 08/26/23 07:40 stimulator Patient instructed to have No 08/26/23 07:40 device shut off --Does patient have Pacemaker No 08/26/23 08:06 or ICD? When Was Last Pacemaker Check QUESTION #4 FULL TEXT: You/Your Family Experience fever (hyperthermia) with Anesthesia Last Oral Intake Last Oral intake: Last Oral Intake NPO since 00:00 08/26/23 08:06 Meds taken in AM with sips of No 08/26/23 08:06 water? Meds patient instructed to take am of surgery PONV PONV - housekeeper and laundry assistant: PONV - housekeeper and laundry assistant Female HX of Motion Sickness HX of N/V After Surgery Non-Smoker Duration of Surgery greater than 60 minutes Number of Risk Factors PONV Score Height & Weight Height & Weight: Anesthesia: Height & Weight Height 5 ft 08/26/23 08:06 Weight: 77 kg 08/26/23 08:06 Body Mass Index (BMI) 33.1 08/26/23 08:06 Respiratory Assessment Respiratory Assessment - housekeeper and laundry assistant: Respiratory Tract Infection Hx - housekeeper and laundry assistant Hx Respiratory Tract Infection No 08/26/23 07:40 STOP Sleep Apnea STOP Sleep Apnea - housekeeper and laundry assistant: STOP Sleep Apnea - housekeeper and laundry assistant Hx Hypertension Yes: CONTROLLED WITH MED 08/25/23 07:36 Hx Sleep Apnea No 08/25/23 07:36 CPAP No 08/25/23 07:36 BIPAP Do you snore loudly (louder No 08/25/23 07:36 than talking or can be heard Do you often feel tired/ No 08/25/23 07:36 fatigued/ sleepy during daytime? Has anyone observed you stop No 08/25/23 07:36 breathing during sleep? STOP Results Negative 08/25/23 07:36 QUESTION #5 FULL TEXT : Do you snore loudly (louder than talking or can be heard through closed doors)? Tobacco Use History Tobacco Use History - housekeeper and laundry assistant: Tobacco Use History - housekeeper and laundry assistant Tobacco Use Smoking Status Never smoker 08/25/23 07:36 Hx Tobacco Use No 08/25/23 07:36 Years Smoking Packs Smoked per Day Smoking Cessation Date was within the last 15 years Hx Smoking Cessation Date Hx Smoking Cessation Counseling Hematologic Medial History Hematologic Hx - housekeeper and laundry assistant: Hematologic Medical Hx - double back operator Hx of Blood Transfusion No 08/25/23 07:36 Hx of Transfusion in last 3 No 08/25/23 07:36 Months Date of Last Transfusion (if within last 3 months) Ever experience any problems No 08/25/23 07:36 with transfusion(s)? Specify any problems Hx of Preganancy in last 3 No 08/25/23 07:36 Months Nurse Filling Out Transfusion HHLIZET 08/25/23 07:36 & Questions: Date: 08/25/23 08/25/23 07:36 Time: 08:10 08/25/23 07:36 Patient unable to answer at this time (ie. confused, unrespo /Reproduction History /Reproductive History - housekeeper and laundry assistant: /Reproductive Hx- housekeeper and laundry assistant Hx Now No 08/26/23 07:40 Gestational Age (in weeks): EDC: Hx Hx Para Hx Section SAB No 08/26/23 07:40 Active Medications Active Medications: Current Medications Generic Name Dose Route Start Last Admin Trade Name Freq PRN Reason Stop Dose Admin Acetaminophen 1,000 mg 08/25/23 14:00 08/26/23 05:29 Acetaminophen 500 Mg Tablet PO 1,000 mg Q8 NAHED Administration Al Hydroxide/Mg Hydroxide 30 ml 08/25/23 07:35 Mag Hydrox/Al Hydrox/Simeth 30 Ml Udc PO Q6H PRN PRN Gastric Burning Albuterol Sulfate 2.5 mg 08/25/23 07:35 Albuterol 2.5 Mg/3 Ml Vial.Neb. INHALATION Q2H PRN PRN SOB &/OR WHEEZING Aspirin 81 mg 08/25/23 10:00 08/25/23 13:32 Aspirin E.C. 81 Mg Tablet PO 81 mg DAILY NAHED Administration Atorvastatin Calcium 40 mg 08/25/23 22:00 08/25/23 21:35 Atorvastatin Calcium 40 Mg Tablet PO 40 mg QHS NAHED Administration Clopidogrel Bisulfate 75 mg 08/25/23 10:00 08/25/23 13:32 Clopidogrel Bisulfate 75 Mg Tablet PO 75 mg DAILY NAHED Administration Dextrose 0 gm 08/25/23 07:35 Dextrose 50%-Water 25 Gm/50 Ml Disp.Syrin IV X1 PRN HYPOGLYCEMIA Protocol Docusate Sodium 100 mg 08/25/23 10:00 08/25/23 21:35 Docusate Sodium 100 Mg Capsule PO 100 mg BID NAHED Administration Famotidine 20 mg 08/25/23 10:00 08/25/23 21:35 Famotidine 20 Mg Tablet PO 20 mg BID NAHED Administration Gabapentin 300 mg 08/25/23 14:30 08/26/23 05:29 Gabapentin 300 Mg Capsule PO 300 mg TID NAHED Administration Gentamicin Sulfate 1 gm 08/25/23 22:00 08/25/23 21:40 Gentamicin Sulfate 15 Gm Cream..G. TOPICAL 1 gm BID NAHED Administration Glucagon 1 mg 08/25/23 07:35 Glucagon 1 Mg/Ml Syringe IM X1 PRN HYPOGLYCEMIA Guaifenesin 20 ml 08/25/23 07:35 Guaifenesin 10 Ml Udc (200mg/10ml) PO Q4H PRN PRN COUGH Heparin Sodium (Porcine) 0 unit 08/25/23 06:20 Heparin Injection (Vial) 5,000 Unit/Ml Vial IV UD PRN dose adjustment Protocol Hydromorphone HCl 0.5 - 1 mg 08/25/23 07:35 Hydromorphone 1 Mg/Ml Syringe IV Q3H PRN PRN Pain Score 6-10 Heparin Sodium/Dextrose 25,000 units in 250 mls @ 9 mls/hr 08/25/23 06:10 08/26/23 07:55 CONT INF 0 units/hr .[id number] NAHED 0 mls/hr Titration Protocol As Directed Sodium Chloride 1,000 mls @ 75 mls/hr 06/13/24 07:35 08/26/23 08:20 IV 0 mls/hr .[id number] NAHED Infusion Cefazolin Sodium 2 gm/ Sodium 110 mls @ 150 mls/hr 08/26/23 09:00 Chloride IV 08/26/23 09:43 PREOP ONE Lactated Ringer's 1,000 mls @ 15 mls/hr 08/26/23 08:30 08/26/23 08:20 IV 15 mls/hr .Q48H NAHED Administration Insulin Human Lispro 0 unit 08/25/23 11:00 08/26/23 06:42 Insulin Lispro 100 Unit/Ml Insuln.Pen SC Not Given ACHS NAHED Protocol Lisinopril 10 mg 08/25/23 10:00 08/25/23 10:28 Lisinopril 10 Mg Tablet PO 10 mg DAILY NAHED Administration Protocol Melatonin 3 mg 08/25/23 07:35 Melatonin 3 Mg Tablet PO QHS PRN PRN INSOMNIA Nitroglycerin 0.4 mg 08/25/23 07:35 Nitroglycerin (Inpatient Use) 0.4 Mg Tab.Subl SL Q5M PRN CARDIAC/CHEST PAIN Ondansetron HCl 4 mg 08/25/23 07:35 Ondansetron 4 Mg/2 Ml Vial IV Q8H PRN PRN NAUSEA/VOMITING Oxycodone HCl 5 mg 08/25/23 07:35 Oxycodone 5 Mg Tablet PO Q4H PRN PRN Pain Score 4-10 Sodium Chloride 10 - 40 ml 08/25/23 07:39 0.9% Saline Lock 10 Ml Syringe IV UD PRN SALINE FLUSH Throat Lozenges 1 lozenge 08/25/23 07:35 Benzocaine/Menthol 1 Lozenge MUCOUS MEM Q2H PRN PRN SORE THROAT Anesthesia Focused Assessment* Temperature: 97.6 F Pulse Rate: 85 Blood Pressure: 131/63 Respiratory Rate: 16 Pulse Ox: 98 Airway Assessment Mouth opens: >3 cm Mallampati Score: III Focused Labs Anesthesia Preop lab: CBC WBC 5.7 K/mm3 (4.4-11.0) 08/26/23 04:07 RBC 3.80 M/mm3 (4.2-5.4) L 08/26/23 04:07 Hgb 9.5 g/dL (12.0-15.0) L 08/26/23 04:07 Hct 30.8 % (37-47) L 08/26/23 04:07 Plt Count 260 K/mm3 (150-450) 08/26/23 04:07 CHEMISTRY Potassium 4.1 mmol/L (3.5-5.1) 08/26/23 04:07 Sodium 139 mmol/L (136-145) 08/26/23 04:07 Magnesium 1.4 mg/dL (1.6-2.6) L 08/25/23 03:55 BUN 14 mg/dL (7-18) 08/26/23 04:07 Creatinine 0.54 mg/dL (0.55-1.02) L 08/26/23 04:07 Glucose 168 mg/dL (74-106) H 08/26/23 04:07 COAG PT 17.3 SECONDS (11.7-14.9) H 08/25/23 06:45 Review of Systems (Anesthesia) ROS Narrative System reviewed and no additional complaints, except as documented. [facility] Medical History Wears glasses Wears dentures Post-menopausal Diabetes High cholesterol Back pain Migraine headache Injury of head and neck Dietary restriction Shortness of breath on exertion Non-smoker History of pain when walking History of edema Heart murmur Home Medications ?Medication ?Instructions ?Recorded ?Last Taken ?Type metformin 1,000 mg tablet 1,000 mg PO BID diabetes 01/12/23 08/24/23 History aspirin 81 mg tablet,delayed 81 mg PO DAILY #30 tabs 02/01/23 08/18/23 Rx release (Adult Aspirin Regimen) lisinopril 10 mg tablet 10 mg PO DAILY blood pressure 02/01/23 08/24/23 History atorvastatin 40 mg tablet 40 mg PO QHS #30 tabs 04/28/23 08/24/23 Rx clopidogrel 75 mg tablet (Plavix) 75 mg PO DAILY blood thinner 04/28/23 08/24/23 History rivaroxaban 20 mg tablet (Xarelto) 20 mg PO DAILY #30 tabs 06/04/24 06/12/24 Rx cilostazol 50 mg tablet 50 mg PO BID cilostazol 08/25/23 Unknown History gabapentin 300 mg capsule 300 mg PO TID nerve pain 08/25/23 08/25/23 04:00 History gentamicin 0.1 % topical cream 1 applic topical BID wound on left 08/25/23 08/24/23 History leg Allergy/AdvReac Type Severity Reaction Status Date / Time No Known Allergies Allergy Verified 08/26/23 08:14 Family History Other CAD (coronary artery disease) Diabetes Heart disease Myocardial infarction Surgical History No history of previous surgery Social History Smoking Status: Never smoker
--- NOTE | 2023-08-26 09:06 | NURSING ---
report called to [employer]ine manager agricultural with no questions voiced. pt arik packed and will be sent to [facility].
[2023-08-26] MEDS: Cefazolin 2 GM in 0.9% Normal Saline (100mL Bag) 100 ML IV (09:45)
[2023-08-26] MEDS: Heparin Injection (Vial) 5,000 UNIT/ML VIAL 5000 UNIT (11:06)
--- NOTE | 2023-08-26 12:37 | CASEMGMT ---
Social Work SW spoke w/Patience from [employer], pt is Mennonite and using a synagogue fund, was not interested in applying for Medicaid or any assist at this time. DAYLIN Moore
--- NOTE | 2023-08-26 13:21 | CASEMGMT ---
Addendum entered by Susanna Norris 08/26/23 15:48: At this time, the pt is still off of the floor. CM to follow. Original Note: MANUELITO CM to pt room to discuss DC planning. Pt is off of the floor at this time, will continue to follow.
--- NOTE | 2023-08-26 16:03 | CHAPLAIN ---
Type of Pastoral Visit ___ Initial Visit ___ Follow-up Visit ___ On-call Visit ___ General Patient Visit ___ Spiritual Assessment ___ Family Conference ___ Bereavement ___ Rapid Response ___ Code Blue ___ Other (describe below) Pastoral Care Referral From ___ Patient ___ Family ___ Nurse ___ Physician ___ Interventional Sale Consultant ___ Commercial Litigation Associate ___ Other (describe below) Sacrament/Intervention ___ Active listening ___ Anointing ___ Scientologist ___ Bereavement ___ Communion ___ Lani exploration ___ ___ Life review ___ Prayer ___ Reconciliation ___ Sacrament of Sick ___ Supportive presence ___ Wedding ___ Other (describe below) Pastoral Comments patient was in surgery and not yet admitted to ICU when visit was attempted
--- NOTE | 2023-08-26 16:43 | OP.PCM_ITS ---
Report of Operation Date of Procedure: 08/26/23 Pre-Operative Diagnosis: atherosclerosis with rest pain, right lower extremity Post-Operative Diagnosis: same Surgery/Procedure Performed:: right SFA-AT bypass with reversed GSV Surgeon: Ivan Ortiz Type of Anesthesia: General Estimated Blood Loss (mL): 100 Description of Procedure: HPI: Patient is a 58-year-old female with atherosclerosis and rest pain of the right lower extremity after thrombosis of her previously placed popliteal stent. She is taken now for bypass with intended target either below the knee poplit eal or anterior tibial depending on degree of calcification of the popliteal artery. Description of procedure: Upon obtaining informed consent and verification correct patient procedure site patient taken to the operating room where she was placed under general anesthesia. She was then positioned prepped and draped in usual sterile fashion and timeout was performed. Ultrasound was used to evalu ate the great saphenous vein bilaterally and the right great saphenous vein was found to be only adequate in size for a short segment from the distal thigh to the mid calf. The left great saphenous vein was adequate from saphenofemoral junction to the mid calf. Longitudinal incision was then made in the medial right thigh and Bovie electrocautery was dissect down through the subcutaneous tissue to level the fascia. Self-retaining retractor put in position and the fascia was incised and self-retaining retractor moved deeper into the wound. The adductor muscles were then retracted medially and Bovie dissection carried down to the femoral neurovascular bundle. Sharp dissection used to dissect free the superficial femoral artery with care taken to identify protect the adjacent nerve and vein structures. The vessel was highly calcified throughout however we were able to find 3 focal small segments that were soft enough to plan for clamping and anastomosis creation. A right angle was used to place a vessel loop around the proximalmost and distalmost soft segments and we then turned attention to the distal exposure. Longitudinal incision made in the mid calf and Bovie electrocautery was dissect down through subcutaneous tissue. Subtending retractors then put in position and further dissection carried down above the fascia. Her incision was then extended superiorly and the saphenous vein was encountered. This vein was less favorable in appearance than the measurement with ultrasound had suggested so it was even less likely that we could use this for over conduit. Further dissection was then carried into the popliteal space and self-retaining retractor moved deeper into the wound. The popliteal neurovascular bundle was then visualized and sharp dissection used to dissect the popliteal vein off the popliteal artery. The artery was densely calcified throughout with no segments that appear to be soft enough for clamp or anastomosis purposes. Extending distally the origin of the anterior tibial artery and the tibioperoneal trunk in its entirety were densely calcified and there were no vessels suitable for distal anastomosis. Next longitudinal incision made at the lateral mid calf and Bovie electrocautery was dissect down to the level of the fascia of the anterior compartment. This fascia was then incised and self-retaining retractor put in position. The muscle bellies were then split exposing the anterior tibial neurovascular structures. Anterior tibial artery dislocation was soft with very minimal calcification or plaque. Sharp dissection used to dissect free the anterior tibial artery proximal and distal neurotomy was placed vessel loop with care taken to identify and protect adjacent nerve and vein. Next dissection was carried down to the interosseous septum which was then incised with Bovie to create space for our graft to tunnel from the medial aspect of the thigh. Given the length required for bypass the plan to harvest the right saphenous vein given its short length of adequate size. So the left great saphenous vein was then dissected free through multiple skip incisions with side branches ligated with silk ties and divided. After an adequate length of saphenous vein was harvested a Maryann tunneler was then used to tunnel from the popliteal space to the SFA surgical field. Hemostat was then used to create the tunnel from the lateral calf to the medial calf surgical gonzalez. Patient was then heparinized allowed to circulate for 3 minutes after which time the great saphenous vein was harvested with the distal vessel ligated with silk tie and divided approximately clamped and ligated then oversewn with a 5-0 Prolene. The vein was then flushed heparinized saline and sidebranches reinforced as needed. The vein was adequate in size throughout. Next the superficial femoral artery was occluded with Vesseloops and longitudinal arteriotomy created with 11 blade extended Fernandez scissors. The vein was then oriented in reverse fashion and beveled to match the arteriotomy. Anastomosis was then performed using a 6-0 Prolene running fashion. After completing the suture line and vessels were flushed into the graft and then the clamps removed. There is satisfactory hemostasis noted there is pulsatile brisk flow through the bypass. The vein was then marked to maintain orientation and then secured to the tunneler and pulled through the popliteal surgical field. The vein was then oriented correctly and secured to the hemostat and pulled through to the anterior tibial surgical field. The anterior tibial artery was then occluded with Vesseloops and longitudinal arteriotomy created with 11 blade extended with Fernandez scissors. The vein was then cut to length and beveled to match the arteriotomy. Anastomosis was then performed using a 7-0 Prolene in running fashion. Putting the suture line the vessels back flushed and the graft flushed and after the completion of the suture line satisfactory stasis was noted. There is a palpable pulse in the bypass graft and into the anterior tibial artery distally. Heparin was then reversed with protamine and the incision inspected hemostasis. The right thigh and medial calf incision were then closed with 2-0 Vicryl followed by 3-0 Vicryl for Monocryl and Dermabond for the skin. The lateral calf incision was closed with a single 2-0 Vicryl suture placed in the fascia helped reapproximate without compressing the bypass graft followed by 2-0 nylon interrupted for the skin. The left leg vein harvest sites were closed with 3-0 Vicryl, 4 Monocryl and Dermabond for the skin. At the conclusion of the case patient awakened esthesia taken recovery room with anticipated [facility] intensive care unit for hemodynamic and vascular monitoring.
[2023-08-26] MEDS: Bacitracin 500 UNITS/GM PACKET (17:05)
--- NOTE | 2023-08-26 17:20 | PCM.POST.ANE ---
Anesthesia: Postop Eval I Current Vital Signs Temperature: 98.7 F Pulse Rate: 99 Blood Pressure: 137/61 Respiratory Rate: 18 Pulse Ox: 93 Oxygen Delivery Method: Room Air Assessment Airway patent: Yes Spontaneous unlabored respirations: Yes Mental status: Awake nausea: No Vomiting: No Anesthesia Complication: No Fluid Hydration Crystalloid volume administer (ml): 1,800 Total IV fluid infused: 1,800 Progress Note Anesthesia document: Postop Eval 1 completed: Yes
[2023-08-26 18:36] LABS: Bedside Glucose 179 mg/dL (74-106)
--- NOTE | 2023-08-26 18:38 | SUR.PHASEI ---
FROM ADMISSION TO PACU UNTIL APPROXIMATELY 1829, THE PATIENT WAS NOT VERBALLY RESPONSIVE AND DID NOT FOLLOW VERBAL COMMANDS. SHE WAS ABLE TO MOVE ALL FOUR EXTREMITIES EQUALLY AND RANDOMLY. AT APPROXIMATELY 1830, THE PATIENT WAS ABLE TO VERBALLY ANSWER YES AND NO QUESTIONS APPROPRIATELY AND FOLLOW SIMPLE COMMANDS.
[2023-08-26] MEDS: HEPARIN/D5w 25,000 UNITS 25,000 UNITS/250 ML IV.SOLN. 5 UNITS CONT INF (20:39)
[2023-08-26] MEDS: 0.9% Saline Lock 10 ML Syringe IV (20:39)
[2023-08-26] MEDS: HYDROmorphone 1 MG/ML Syringe IV (21:39)
[2023-08-26] MEDS: 0.9% Normal Saline (1000mL) 1,000 ML 100 ML IV (21:41)
[2023-08-26] MEDS: Docusate Sodium 100 MG Capsule PO (21:43)
[2023-08-26] MEDS: Famotidine 20 MG Tablet PO (21:43)
[2023-08-26] MEDS: Atorvastatin Calcium 40 MG Tablet PO (21:45)
[2023-08-26 22:27] LABS: Bedside Glucose 186 mg/dL (74-106)
[2023-08-27] VITALS (26 sets, daily range): BP systolic 97–156; BP diastolic 40–86; PULSE 85–109; RESP 10–23; TEMP 36.1–36.8; O2SAT 97–100; BMI 34.4
[2023-08-27] MEDS: HYDROmorphone 1 MG/ML Syringe IV ×2 (03:57→08:00)
[2023-08-27] MEDS: Gabapentin 300 MG Capsule PO ×3 (05:26→22:18)
[2023-08-27] MEDS: Acetaminophen 500 MG Tablet 1000 MG PO ×3 (05:26→22:17)
[2023-08-27 05:42] LABS: Absolute Lymphocyte Count 1.43 X10^3/uL (0.83-4.51); Absolute Neutrophil Count 4.8 X10^3/uL (2.0-7.7); Basophil# 0.01 X10^3/uL; Basophil% 0.1 % (0-1); Eosinophil# 0.02 X10^3/uL; Eosinophils% 0.3 % (0-5); Hemoglobin 8.8 g/dL (12.0-15.0); Lymphocyte # 1.43 X10^3/ul (0.83-4.51); Lymphocyte % 19.8 % (19-41); Mean Corp Hgb Conc 31.4 g/dL (32-36); Mean Corpuscular Volume 82.8 fL (81-99); Mean Platelet Vol. 9.8 fl (6.2-12.0); Monocyte# 0.92 X10^3/uL; Monocyte% 12.7 % (0-10); NRBC Flagged by Analyzer 0 % (0-5); Neutrophil # 4.83 X10^3/uL (2.7-7.7); Neutrophil % 66.7 % (47-70); Platelet Count 268 K/mm3 (150-450); RBC Distribution Width CV 16.3 % (11.6-14.6); RBC Distribution Width SD 49.2 fl (35.1-43.9); Red Blood Count 3.38 M/mm3 (4.2-5.4); White Blood Count 7.2 K/mm3 (4.4-11.0)
[2023-08-27 05:56] LABS: Anion Gap 6 (5-15); BUN 19 mg/dL (7-18); BUN/Creat Ratio 26.1 RATIO (10-20); Chloride 108 mmol/L (98-107); Creatinine, Serum 0.73 mg/dL (0.55-1.02); EST Glomerular Filtration Rate 87 mL/min (>60); Est Glom Filt Rate - Afr Amer 105 mL/min (>60); Estimated Creatinine Clearance 78.64 ml/min; Glucose 154 mg/dL (74-106); Potassium 4.5 mmol/L (3.5-5.1); Sodium Level 140 mmol/L (136-145)
[2023-08-27] MEDS: 0.9% Normal Saline (1000mL) 1,000 ML 100 ML IV ×2 (07:38→17:53)
[2023-08-27] MEDS: 0.9% Saline Lock 10 ML Syringe IV (08:02)
[2023-08-27 08:56] LABS: Bedside Glucose 122 mg/dL (74-106)
[2023-08-27] MEDS: Clopidogrel Bisulfate 75 MG Tablet PO (10:36)
[2023-08-27] MEDS: Famotidine 20 MG Tablet PO ×2 (10:36→22:18)
[2023-08-27] MEDS: Lisinopril 10 MG Tablet PO (10:36)
[2023-08-27] MEDS: Docusate Sodium 100 MG Capsule PO ×2 (10:36→22:18)
[2023-08-27] MEDS: Aspirin E.C. 81 MG Tablet PO (10:36)
--- NOTE | 2023-08-27 10:42 | PN.SURG_ITS ---
Subjective Subjective Pain controlled, not ready to get out of bed yet. Foot feels better, intermittent sharp pains remain. Objective Data Objective Data A&O x 3, NAD RRR Resp non labored, no accessory muscle use +biphasic doppler DP Vital Signs: Vital Signs Temp Pulse Resp BP Pulse Ox O2 Del Method O2 Flow Rate 97.3 F L 85 16 97/51 L 97 Nasal Cannula 2 08/27/23 09:00 08/27/23 09:00 08/27/23 09:00 08/27/23 09:00 08/27/23 09:00 08/27/23 09:00 08/27/23 09:00 Oxygen Flow Rate (L/min) 2 Oxygen Delivery Method Nasal Cannula Weight: 176 lb 5.917 oz Body Mass Index (BMI) 34.4 Intake & Output: Intake and Output for Last 24 Hours 08/25/23 08/26/23 08/27/23 23:59 23:59 23:59 Intake Total 2799.65 / 2799.65 2291.91 / 2291.91 1355 / 1355 Output Total 810 / 810 150 / 150 Balance 2799.65 / 2799.65 1481.91 / 1481.91 1205 / 1205 Lab / Micro Data 08/27/23 05:20 08/27/23 05:20 Labs: Laboratory Results - last 24 hr 08/26/23 18:08: POC Glucose 179 H 08/26/23 22:05: POC Glucose 186 H 08/27/23 05:20: WBC 7.2, RBC 3.38 L, Hgb 8.8 L, Hct 28.0 L, MCV 82.8, MCH 26.0 L , MCHC 31.4 L, RDW Std Deviation 49.2 H, RDW Coeff of Gregory 16.3 H, Plt Count 268, MPV 9.8, Immature Gran % (Auto) 0.400, Neut % (Auto) 66.7, Lymph % (Auto) 19.8, [place] % (Auto) 12.7 H, Eos % (Auto) 0.3, Baso % (Auto) 0.1, Absolute Neuts (auto) 4.8, Absolute Lymphs (auto) 1.43, Nucleated RBC % 0, APTT 32.0, Sodium 140, Potassium 4.5, Chloride 108 H, Carbon Dioxide 26.0, Anion Gap 6, BUN 19 H, Creatinine 0.73, Estim Creat Clear Calc 78.64, Est GFR (MDRD) Af Amer 105, Est GFR (MDRD) Non-Af 87, BUN/Creatinine Ratio 26.1 H, Glucose 154 H, Calcium 8.0 L 08/27/23 08:09: POC Glucose 122 H Assessment & Plan Assessment/Plan (1) Atherosclerosis of [place] artery of right leg with rest pain: PLAN: -progressive ambulation -cont low dose heparin, increase tomorrow if hgb stable -foot well perfused, stable doppler exam
--- NOTE | 2023-08-27 11:16 | POSTOPAN2_ITS ---
Anesthesia Postop Eval I Sum Postop Eval Completion status Anesthesia document: Postop Eval 1 completed: Yes Anesthesia Postop Eval I Summary Anesthesia Postop Eval I Summary: Anesthesia Postop Eval I: Assessment Summary Airway patent Yes 08/26/23 17:22 [email or web address] [email or web address] Spontaneous unlabored Yes 08/26/23 17:22 SAFETY [email or web address].CSIR respirations Mental status Awake 08/26/23 17:22 SAFETY [email or web address] nausea No 08/26/23 17:22 SAFETY SPEC.CSIR Vomiting No 08/26/23 17:22 SAFETY [email or web address] Anesthesia Postop Eval I: Fluid Summary Crystalloid volume administer 1,800 08/26/23 17:22 SAFETY [email or web address].CSIR (ml) Colloids volume administered ( ml) Blood Product volume administered (ml) Total IV fluid infused 1,800 08/26/23 17:22 SAFETY [email or web address] Anesthesia Postop Eval I: Summary Notes Anesthesia Complication No 08/26/23 17:22 SAFETY [email or web address] Anesthesia Complication Comment: Post-operative progress note Anesthesia: Postop Eval II Evaluation Mental status: Awake and Calm Pain Level: 0 nausea: No Vomiting: No Complications Anesthesia Complication: No
--- NOTE | 2023-08-27 11:16 | PCM.POSTANE2 ---
Anesthesia Postop Eval I Sum Postop Eval Completion status Anesthesia document: Postop Eval 1 completed: Yes Anesthesia Postop Eval I Summary Anesthesia Postop Eval I Summary: Anesthesia Postop Eval I: Assessment Summary Airway patent Yes 08/26/23 17:22 DYE WEIGHER [email or web address] Spontaneous unlabored Yes 08/26/23 17:22 DYE WEIGHER HELPER.CSIR respirations Mental status Awake 08/26/23 17:22 DYE WEIGHER [email or web address].CSIR nausea No 08/26/23 17:22 DYE WEIGHER HELPER.CSIR Vomiting No 08/26/23 17:22 DYE WEIGHER HELPER.CSIR Anesthesia Postop Eval I: Fluid Summary Crystalloid volume administer 1,800 08/26/23 17:22 DYE WEIGHER HELPER.CSIR (ml) Colloids volume administered ( ml) Blood Product volume administered (ml) Total IV fluid infused 1,800 08/26/23 17:22 DYE WEIGHER HELPER.CSIR Anesthesia Postop Eval I: Summary Notes Anesthesia Complication No 08/26/23 17:22 DYE WEIGHER HELPER.CSIR Anesthesia Complication Comment: Post-operative progress note Anesthesia: Postop Eval II Evaluation Mental status: Awake and Calm Pain Level: 0 nausea: No Vomiting: No Complications Anesthesia Complication: No
[2023-08-27 12:07] LABS: Bedside Glucose 184 mg/dL (74-106)
--- NOTE | 2023-08-27 13:50 | CASEMGMT ---
MANUELITO PAULA note: MANUELITO PAULA to room. Introduced self and role. Pt states therapy worked w/her today and she was able to ambulate in the room from her chair and to the bed w/use of WW. Discussed discharge planning/needs. Pt states she feels safe to discharge home w/her mom and other family support, stating they are able/willing to come help if needed. Discussed HHC and OP therapy and pt declines both. She and her mother, who is at bedside, made aware to f/u with PCP or Dr Ortiz if pt changes her mind re: HHC or OP therapy. Pt states she does not have a walker @ home, but her brother is checking with a family @ [facility] about borrowing one. Pt also provided w/[facility] [employer] handout/information. She voices appreciation and denies having other discharge needs or concerns. Chandan CHAPMAN RN, CM
[2023-08-27] MEDS: oxyCODONE 5 MG Tablet PO ×2 (14:10→19:26)
[2023-08-27] MEDS: CHLORHEXIDINE GLUC 2% CLOTH 1 EACH TOWELETTE TOPICAL (14:14)
[2023-08-27] MEDS: Insulin Lispro 100 UNIT/ML INSULN.PEN SC ×2 (16:26→22:17)
[2023-08-27 16:55] LABS: Bedside Glucose 171 mg/dL (74-106)
[2023-08-27] MEDS: GENTAMICIN SULFATE TOPICAL (22:17)
[2023-08-27] MEDS: Atorvastatin Calcium 40 MG Tablet PO (22:18)
[2023-08-27 22:42] LABS: Bedside Glucose 174 mg/dL (74-106)
[2023-08-28] VITALS (26 sets, daily range): BP systolic 100–152; BP diastolic 31–73; PULSE 84–102; RESP 12–22; TEMP 35.9–36.8; O2SAT 90–99; BMI 34.4
[2023-08-28] MEDS: 0.9% Normal Saline (1000mL) 1,000 ML 100 ML IV (02:37)
[2023-08-28] MEDS: oxyCODONE 5 MG Tablet PO ×3 (06:11→19:04)
[2023-08-28] MEDS: Acetaminophen 500 MG Tablet 1000 MG PO ×3 (06:11→21:45)
[2023-08-28] MEDS: Gabapentin 300 MG Capsule PO ×3 (06:11→21:46)
[2023-08-28 06:33] LABS: Absolute Neutrophil Count 4.8 X10^3/uL (2.0-7.7); Basophil# 0.02 X10^3/uL; Basophil% 0.3 % (0-1); Eosinophil# 0.13 X10^3/uL; Eosinophils% 1.8 % (0-5); Hematocrit 27.2 % (37-47); Hemoglobin 8.4 g/dL (12.0-15.0); Lymphocyte % 15.2 % (19-41); Mean Corp Hgb Conc 30.9 g/dL (32-36); Mean Corpuscular Hgb 26.1 pg (27.0-32.0); Mean Corpuscular Volume 84.5 fL (81-99); Mean Platelet Vol. 9.6 fl (6.2-12.0); Monocyte# 1.15 X10^3/uL; Monocyte% 15.9 % (0-10); NRBC Flagged by Analyzer 0 % (0-5); Neutrophil # 4.79 X10^3/uL (2.7-7.7); Neutrophil % 66.2 % (47-70); Platelet Count 237 K/mm3 (150-450); RBC Distribution Width CV 16.1 % (11.6-14.6); RBC Distribution Width SD 49.8 fl (35.1-43.9); Red Blood Count 3.22 M/mm3 (4.2-5.4); White Blood Count 7.2 K/mm3 (4.4-11.0)
[2023-08-28 06:42] LABS: Partial Thromboplast Time 39.4 Seconds (24.1-36.2)
[2023-08-28 06:47] LABS: Anion Gap 3 (5-15); BUN 10 mg/dL (7-18); BUN/Creat Ratio 18.2 RATIO (10-20); Calcium,Total 8.1 mg/dL (8.5-10.1); Chloride 109 mmol/L (98-107); Creatinine, Serum 0.55 mg/dL (0.55-1.02); EST Glomerular Filtration Rate 121 mL/min (>60); Est Glom Filt Rate - Afr Amer 146 mL/min (>60); Estimated Creatinine Clearance 104.44 ml/min; Glucose 134 mg/dL (74-106); Potassium 3.9 mmol/L (3.5-5.1); Sodium Level 139 mmol/L (136-145)
--- NOTE | 2023-08-28 08:43 | PN.SURG_ITS ---
Subjective Subjective Feeling better today, OOB to chair this AM, some confusion overnight. Pain controlled, [place] diet. Objective Data Objective Data A&O x 3, NAD RRR Resp non labored RLE digits pink, warm, normal capillary refill Vital Signs: Vital Signs Temp Pulse Resp BP Pulse Ox O2 Del Method O2 Flow Rate 96.7 F L 89 17 119/62 96 Room Air 2 08/28/23 08:00 08/28/23 08:00 08/28/23 08:00 08/28/23 08:00 08/28/23 08:00 08/28/23 08:00 08/28/23 07:00 Oxygen Flow Rate (L/min) 2 Oxygen Delivery Method Room Air Weight: 176 lb 9.444 oz Body Mass Index (BMI) 34.4 Intake & Output: Intake and Output for Last 24 Hours 08/26/23 08/27/23 08/28/23 23:59 23:59 23:59 Intake Total 2291.91 / 2291.91 3298.42 / 4423.42 1746.67 / 1746.67 Output Total 810 / 810 1350 / 2650 1600 / 1600 Balance 1481.91 / 1481.91 1948.42 / 1773.42 146.67 / 146.67 Lab / Micro Data 08/28/23 06:20 08/28/23 06:20 Labs: Laboratory Results - last 24 hr 08/27/23 08:09: POC Glucose 122 H 08/27/23 11:47: POC Glucose 184 H 08/27/23 16:24: POC Glucose 171 H 08/27/23 22:15: POC Glucose 174 H 08/28/23 06:20: WBC 7.2, RBC 3.22 L, Hgb 8.4 L, Hct 27.2 L, MCV 84.5, MCH 26.1 L , MCHC 30.9 L, RDW Std Deviation 49.8 H, RDW Coeff of Gregory 16.1 H, Plt Count 237, MPV 9.6, Immature Gran % (Auto) 0.600, Neut % (Auto) 66.2, Lymph % (Auto) 15.2 L , [place] % (Auto) 15.9 H, Eos % (Auto) 1.8, Baso % (Auto) 0.3, Absolute Neuts (auto) 4.8, Absolute Lymphs (auto) 1.10, Nucleated RBC % 0, APTT 39.4 H, Sodium 139, Potassium 3.9, Chloride 109 H, Carbon Dioxide 27.0, Anion Gap 3 L, BUN 10, Creatinine 0.55, Estim Creat Clear Calc 104.44, Est GFR (MDRD) Af Amer 146, Est GFR (MDRD) Non-Af 121, BUN/Creatinine Ratio 18.2, Glucose 134 H, Calcium 8.1 L Assessment & Plan Assessment/Plan (1) Atherosclerosis of [place] artery of right leg with rest pain: PLAN: -some drift in hgb; cont serial labs -increase heparin to therapuetic -cont PT/OT, progressive ambulation -advance diet, HLIV, dc wilmer
[2023-08-28 09:13] LABS: Bedside Glucose 135 mg/dL (74-106)
[2023-08-28] MEDS: HEPARIN/D5w 25,000 UNITS 25,000 UNITS/250 ML IV.SOLN. 0.1 UNITS CONT INF ×2 (09:16→13:35)
[2023-08-28] MEDS: GENTAMICIN SULFATE TOPICAL ×2 (09:17→21:47)
[2023-08-28] MEDS: Aspirin E.C. 81 MG Tablet PO (09:18)
[2023-08-28] MEDS: Clopidogrel Bisulfate 75 MG Tablet PO (09:18)
[2023-08-28] MEDS: Famotidine 20 MG Tablet PO ×2 (09:18→21:49)
[2023-08-28] MEDS: Docusate Sodium 100 MG Capsule PO ×2 (09:18→21:47)
[2023-08-28] MEDS: CHLORHEXIDINE GLUC 2% CLOTH 1 EACH TOWELETTE TOPICAL (09:19)
[2023-08-28] MEDS: Lisinopril 10 MG Tablet PO (09:19)
[2023-08-28] MEDS: Insulin Lispro 100 UNIT/ML INSULN.PEN SC ×3 (11:16→21:49)
[2023-08-28 11:46] LABS: Bedside Glucose 151 mg/dL (74-106)
[2023-08-28 16:34] LABS: Bedside Glucose 175 mg/dL (74-106)
[2023-08-28 20:56] LABS: Partial Thromboplast Time 74.8 Seconds (24.1-36.2)
[2023-08-28] MEDS: Atorvastatin Calcium 40 MG Tablet PO (21:47)
[2023-08-28 22:11] LABS: Bedside Glucose 172 mg/dL (74-106)
[2023-08-29] VITALS (26 sets, daily range): BP systolic 99–159; BP diastolic 38–75; PULSE 84–97; RESP 15–22; TEMP 36.3–36.7; O2SAT 90–99; BMI 34.2
[2023-08-29 05:43] LABS: Absolute Lymphocyte Count 1.72 X10^3/uL (0.83-4.51); Absolute Neutrophil Count 4.3 X10^3/uL (2.0-7.7); Basophil# 0.02 X10^3/uL; Basophil% 0.3 % (0-1); Eosinophil# 0.16 X10^3/uL; Eosinophils% 2.2 % (0-5); Hematocrit 26.1 % (37-47); Hemoglobin 8.2 g/dL (12.0-15.0); Lymphocyte # 1.72 X10^3/ul (0.83-4.51); Lymphocyte % 24.2 % (19-41); Mean Corp Hgb Conc 31.4 g/dL (32-36); Mean Corpuscular Hgb 26.4 pg (27.0-32.0); Mean Corpuscular Volume 83.9 fL (81-99); Mean Platelet Vol. 9.4 fl (6.2-12.0); Monocyte# 0.84 X10^3/uL; Monocyte% 11.8 % (0-10); NRBC Flagged by Analyzer 0 % (0-5); Neutrophil # 4.34 X10^3/uL (2.7-7.7); Neutrophil % 60.9 % (47-70); Platelet Count 255 K/mm3 (150-450); RBC Distribution Width CV 16.2 % (11.6-14.6); RBC Distribution Width SD 49.1 fl (35.1-43.9); Red Blood Count 3.11 M/mm3 (4.2-5.4); White Blood Count 7.1 K/mm3 (4.4-11.0)
[2023-08-29] MEDS: Acetaminophen 500 MG Tablet 1000 MG PO ×3 (06:11→21:21)
[2023-08-29] MEDS: Gabapentin 300 MG Capsule PO ×3 (06:12→21:17)
[2023-08-29 06:14] LABS: Anion Gap 3 (5-15); BUN 10 mg/dL (7-18); BUN/Creat Ratio 18.1 RATIO (10-20); Calcium,Total 8.4 mg/dL (8.5-10.1); Chloride 108 mmol/L (98-107); Creatinine, Serum 0.55 mg/dL (0.55-1.02); EST Glomerular Filtration Rate 120 mL/min (>60); Est Glom Filt Rate - Afr Amer 145 mL/min (>60); Estimated Creatinine Clearance 104.09 ml/min; Glucose 143 mg/dL (74-106); Potassium 3.7 mmol/L (3.5-5.1); Sodium Level 139 mmol/L (136-145)
[2023-08-29] MEDS: oxyCODONE 5 MG Tablet PO ×3 (08:16→21:17)
[2023-08-29] MEDS: Famotidine 20 MG Tablet PO ×2 (08:16→21:17)
[2023-08-29] MEDS: Lisinopril 10 MG Tablet PO (08:17)
[2023-08-29] MEDS: Docusate Sodium 100 MG Capsule PO ×2 (08:18→21:17)
[2023-08-29] MEDS: Aspirin E.C. 81 MG Tablet PO (08:18)
[2023-08-29] MEDS: GENTAMICIN SULFATE TOPICAL ×2 (08:18→21:17)
[2023-08-29] MEDS: Clopidogrel Bisulfate 75 MG Tablet PO (08:18)
[2023-08-29] MEDS: CHLORHEXIDINE GLUC 2% CLOTH 1 EACH TOWELETTE TOPICAL (08:18)
--- NOTE | 2023-08-29 10:37 | CASEMGMT ---
Addendum entered by Susanna Norris 08/29/23 16:08: [facility] notified as well. [facility] 08/29/23 16:07: MANUELITO PAULA back to pt room at this time. Pt states that she would prefer to use [facility] as they are the cheaper option. TC to [facility] at this time, no answer. [facility] closes at 1600. VM left stating that the pt is willing to accept the prices given. Will follow for a SOC date. Addendum entered by Susanna Norris 08/29/23 15:47: [facility] calls the DC executive assistant to president and states that they can accept the pt and the cost would be 157$ per visit with a 20% discount given if paid within 30 days of service. [facility] calls this MANUELITO PAULA and Arpita states that they can also accept the pt. Arpita states that it would cost around 266$ per visit with a 25% discount if paid promptly. MANUELITO PAULA to pt room at this time and pt and pt daughter updated with these options. Pt given time to make a decision and this MANUELITO PAULA will f/u. Addendum entered by Susanna Norris 08/29/23 14:05: 1243: Pt prefers the following HH Agencies in no particular order: [facility], [facility], [facility], and [facility]. Referrals sent via [facility] per the DC executive assistant to president. 1359: At this time, all HH agencies have declined d/t the pt not having insurance. MANUELITO PAULA to pt room at this time and updated. Pt inquires about if she were to pay [facility] upfront/ prior to leaving the hospital if she could then get accepted. TC to [facility] and [facility] states that she will see if they will be able to make an exception. CM to follow. Addendum entered by Susanna Norris 08/29/23 10:48: List of local [facility] agencies (provided by the DC Manager Change) given to the pt at this time for her review. Will follow. Original Note: MANUELITO PAULA to pt room at this time regarding DC planning. Pt daughter at bedside. Pt and pt daughter state that they are now interested and wanting HHC set up (PT and SN at least). Pt is self pay and is requesting to look at prices. Pt states that she would prefer [facility]. TC to [facility] and [facility] states that they do not accept SP patients any longer. ELYSSA Barrera executive assistant to president is now creating a list of local HH agencies for the pt review. CM to follow.
--- NOTE | 2023-08-29 10:44 | CASEMGMT ---
Discharge Planning A list of?HH providers including quality and resource use data and consistent with the patient's preferred geographic region, medical needs, and insurance network was created in [facility] Guide.? This list was provided to the RN CHAI. Holly Mae, Discharge Planning Asst.
--- NOTE | 2023-08-29 12:06 | WOUNDNOTE ---
In to reassess the right calf wound that this nurse was following. Pt was up in the chair. there was a moderate amount of serosanguineous drainage noted on the pad under patient in chair. the dressing to the left medial thigh is saturated and draining out the Tegaderm dressing. assisted patient back into the bed to better assess since this nurse did not feel a wet dressing should be left in place. removed the Tegaderm, ABD pad, and the Mepilex AG dressing. there was a very large old clot noted under the dressing and the Dermabond was just hanging there. the portion of Dermabond that was loose was removed. some bloody oozing noted from the left medial thigh incision. applied steri strips to assist in keeping the incision approximated. applied new Mepilex AG dressings. pt tolerated well. Dr Ortiz was notified. see wound photos.
[2023-08-29] MEDS: Insulin Lispro 100 UNIT/ML INSULN.PEN SC ×3 (12:31→21:17)
[2023-08-29 12:52] LABS: Bedside Glucose 195 mg/dL (74-106)
--- NOTE | 2023-08-29 12:55 | WOUNDNOTE ---
wound photo: left medial thigh
--- NOTE | 2023-08-29 13:56 | CHAPLAIN ---
Type of Pastoral Visit ___ Initial Visit _x__ Follow-up Visit ___ On-call Visit ___ General Patient Visit ___ Spiritual Assessment ___ Family Conference ___ Bereavement ___ Rapid Response ___ Code Blue ___ Other (describe below) Pastoral Care Referral From _x__ Patient ___ Family ___ Nurse ___ Physician ___ Freight Car Loader ___ Service Administrator ___ Other (describe below) Sacrament/Intervention _x__ Active listening ___ Anointing ___ Amish ___ Bereavement ___ Communion _x__ Lani exploration ___ ___ Life review _x__ Prayer ___ Reconciliation ___ Sacrament of Sick ___ Supportive presence ___ Wedding ___ Other (describe below) Pastoral Comments patient reports on her progress, how she is coping, family visits and winter given; presence and prayer is welcomed
[2023-08-29] MEDS: HEPARIN/D5w 25,000 UNITS 25,000 UNITS/250 ML IV.SOLN. 0.1 UNITS CONT INF (14:25)
[2023-08-29 16:43] LABS: Bedside Glucose 124 mg/dL (74-106)
[2023-08-29 16:48] LABS: Bedside Glucose 207 mg/dL (74-106)
[2023-08-29] MEDS: Atorvastatin Calcium 40 MG Tablet PO (21:17)
[2023-08-29 21:41] LABS: Bedside Glucose 166 mg/dL (74-106)
[2023-08-30] VITALS (28 sets, daily range): BP systolic 101–154; BP diastolic 44–113; PULSE 78–98; RESP 13–26; TEMP 36–36.7; O2SAT 92–98; BMI 34.1
[2023-08-30] MEDS: oxyCODONE 5 MG Tablet PO (01:24)
[2023-08-30] MEDS: Gabapentin 300 MG Capsule PO ×3 (05:26→21:44)
[2023-08-30] MEDS: Acetaminophen 500 MG Tablet 1000 MG PO ×3 (05:26→21:44)
[2023-08-30 05:48] LABS: Absolute Lymphocyte Count 1.73 X10^3/uL (0.83-4.51); Absolute Neutrophil Count 2.8 X10^3/uL (2.0-7.7); Basophil# 0.01 X10^3/uL; Basophil% 0.2 % (0-1); Eosinophil# 0.29 X10^3/uL; Eosinophils% 5.2 % (0-5); Hematocrit 24.8 % (37-47); Hemoglobin 7.7 g/dL (12.0-15.0); Lymphocyte # 1.73 X10^3/ul (0.83-4.51); Lymphocyte % 31.2 % (19-41); Mean Corpuscular Hgb 26.1 pg (27.0-32.0); Mean Corpuscular Volume 84.1 fL (81-99); Mean Platelet Vol. 9.5 fl (6.2-12.0); Monocyte# 0.66 X10^3/uL; Monocyte% 11.9 % (0-10); NRBC Flagged by Analyzer 0 % (0-5); Neutrophil # 2.84 X10^3/uL (2.7-7.7); Neutrophil % 51.1 % (47-70); Platelet Count 303 K/mm3 (150-450); RBC Distribution Width CV 16.3 % (11.6-14.6); RBC Distribution Width SD 50.5 fl (35.1-43.9); Red Blood Count 2.95 M/mm3 (4.2-5.4); White Blood Count 5.6 K/mm3 (4.4-11.0)
[2023-08-30 06:00] LABS: Partial Thromboplast Time 80.4 Seconds (24.1-36.2)
[2023-08-30 06:17] LABS: Anion Gap 6 (5-15); BUN 10 mg/dL (7-18); Calcium,Total 8.5 mg/dL (8.5-10.1); Chloride 108 mmol/L (98-107); EST Glomerular Filtration Rate 134 mL/min (>60); Est Glom Filt Rate - Afr Amer 163 mL/min (>60); Estimated Creatinine Clearance 114.27 ml/min; Glucose 126 mg/dL (74-106); Potassium 3.7 mmol/L (3.5-5.1); Sodium Level 141 mmol/L (136-145)
[2023-08-30] MEDS: Docusate Sodium 100 MG Capsule PO ×2 (07:26→21:45)
[2023-08-30] MEDS: Famotidine 20 MG Tablet PO ×2 (07:26→21:45)
[2023-08-30] MEDS: Clopidogrel Bisulfate 75 MG Tablet PO (07:26)
[2023-08-30] MEDS: Aspirin E.C. 81 MG Tablet PO (07:26)
[2023-08-30] MEDS: CHLORHEXIDINE GLUC 2% CLOTH 1 EACH TOWELETTE TOPICAL (07:27)
[2023-08-30] MEDS: Lisinopril 10 MG Tablet PO (07:27)
[2023-08-30] MEDS: GENTAMICIN SULFATE TOPICAL ×2 (07:28→21:45)
[2023-08-30 07:52] LABS: Bedside Glucose 118 mg/dL (74-106)
--- NOTE | 2023-08-30 10:15 | CASEMGMT ---
Addendum entered by Susanna Norris 08/30/23 15:17: [facility] returns call at this time and states that they have availability to start care on Tuesday. [facility] states that the pt will be billed and if the pt pays within 30 days the pt will get a 20% discount with a total of around 126$/ visit. MANUELITO CM to pt room at this time and updated with this information. Pt states that she is happy with this plan and denies further questions/concerns. PLAN: Home once medically ready with HHC through [facility] starting care on Tuesday (09/01). Original Note: TC to N at this time to coordinate a SOC date. No answer at this time, VM left with return phone #.
[2023-08-30 11:30] LABS: Bedside Glucose 142 mg/dL (74-106)
[2023-08-30] MEDS: Insulin Lispro 100 UNIT/ML INSULN.PEN SC (15:53)
[2023-08-30 16:14] LABS: Bedside Glucose 164 mg/dL (74-106)
[2023-08-30] MEDS: 0.9% Saline Lock 10 ML Syringe IV (19:59)
[2023-08-30] MEDS: Atorvastatin Calcium 40 MG Tablet PO (21:45)
[2023-08-30 22:20] LABS: Bedside Glucose 147 mg/dL (74-106)
[2023-08-31] VITALS (19 sets, daily range): BP systolic 131–164; BP diastolic 57–89; PULSE 78–97; RESP 15–20; TEMP 34.3–36.8; O2SAT 92–98; BMI 33.4
[2023-08-31] MEDS: oxyCODONE 5 MG Tablet PO (03:55)
[2023-08-31] MEDS: Gabapentin 300 MG Capsule PO ×3 (06:24→20:46)
[2023-08-31] MEDS: Acetaminophen 500 MG Tablet 1000 MG PO ×3 (06:24→20:46)
[2023-08-31] MEDS: 0.9% Saline Lock 10 ML Syringe IV ×2 (06:29→20:45)
[2023-08-31 06:43] LABS: Hematocrit 27.8 % (37-47); Hemoglobin 8.9 g/dL (12.0-15.0)
[2023-08-31 09:38] LABS: Bedside Glucose 111 mg/dL (74-106)
[2023-08-31] MEDS: Docusate Sodium 100 MG Capsule PO ×2 (09:46→20:46)
[2023-08-31] MEDS: Lisinopril 10 MG Tablet PO (09:47)
[2023-08-31] MEDS: GENTAMICIN SULFATE TOPICAL ×2 (09:47→20:47)
[2023-08-31] MEDS: Clopidogrel Bisulfate 75 MG Tablet PO (09:47)
[2023-08-31] MEDS: Aspirin E.C. 81 MG Tablet PO (09:47)
[2023-08-31] MEDS: Famotidine 20 MG Tablet PO ×2 (09:47→20:47)
[2023-08-31] MEDS: Rivaroxaban 20 MG Tablet PO (09:50)
--- NOTE | 2023-08-31 10:15 | PCM.PN.SRG ---
Subjective Subjective Patient was seen resting in bedside chair this morning. Overall, she reports minimal incisional site pain. She has swelling in the R foot which she has been managing with elevation, sometimes she has a sensation of tightness. She is still having some numbness in the R foot as prior to the intervention. Otherwise, pain is generally improved. Dr. Ortiz applied Surgicel, new Dermabond, and Elastikon wrap to the L thigh incision site yesterday. There has been no further bleeding from this site to this point. The Elastikon dressing is loosened and slipping down her leg. Her Hgb is stable and improved at 8.9 this morning. She has been doing well with PT, she will have HHC at d/c. Her sister is going to be living with her for the first few weeks of her recovery to help out. She has no complaints this morning. Objective Data Objective Data Vital Signs: Vital Signs Temp Pulse Resp BP Pulse Ox O2 Del Method O2 Flow Rate 93.8 F L 88 16 145/66 H 96 Room Air 2 08/31/23 09:00 08/31/23 09:00 08/31/23 09:00 08/31/23 09:00 08/31/23 09:00 08/31/23 09:00 08/28/23 07:00 Oxygen Flow Rate (L/min) 2 Oxygen Delivery Method Room Air Weight: 171 lb 1.259 oz Body Mass Index (BMI) 33.4 Intake & Output: Intake and Output for Last 24 Hours 08/29/23 08/30/23 08/31/23 23:59 23:59 23:59 Intake Total 250.46 / 250.46 780.45 / 930.45 550 / 550 Output Total 250 / 250 1 / Balance 0.46 / 0.46 779.45 / 929.45 550 / 550 Lab / Micro Data 08/31/23 06:30 08/30/23 05:30 Labs: Laboratory Results - last 24 hr 08/30/23 11:12: POC Glucose 142 H 08/30/23 12:45: Blood Type B NEGATIVE, Antibody Screen NEGATIVE, Crossmatch See Detail 08/30/23 15:49: POC Glucose 164 H 08/30/23 21:50: POC Glucose 147 H 08/31/23 06:30: Hgb 8.9 L, Hct 27.8 L 08/31/23 08:29: POC Glucose 111 H Physical Exam Const alert, oriented x3 and no apparent distress General Appearance: cooperative and comfortable HEENT normocephalic, head/scalp atraumatic, hearing grossly normal bilaterally, external ears normal and external nose normal Eyes EOMs intact bilaterally General Eye: normal appearance of both eyes Neck General: normal visual inspection and trachea midline Resp normal respiratory effort, normal air movement, no retractions and no use of accessory muscles Effort and Inspection: able to speak in complete sentences; Negative for labored, stridor or audible wheezes Cardio regular rate and regular rhythm Extremity Extremity Narrative: R DP and PT pulses palpable. R foot is warm and pink. Moderate edema is noted consistent with reperfusion. R leg incision sites with postoperative dressings C/D/I. No bleeding noted. Mild ecchymosis around the proximal thigh incision but soft to palpation with expected mild tenderness. L leg incision sites with dressings C/D/I. No bleed-through noted. L pedal pulses palpable. Skin no rashes or lesions noted Neuro oriented x3, CN's II-XII intact bilaterally, moves all extremities and no focal motor deficits Speech: speech normal Psych mental status grossly normal, cooperative, affect normal, speech normal and activity/motor behavior normal Judgement: judgement good Assessment & Plan Assessment/Plan (1) Atherosclerosis of [place] artery of right leg with rest pain: PLAN: Removed the Elastikon and kerlix from the L thigh. Mepilex dressing was left in place. There is no further bleed-through this morning. Her Hgb is stable. Will transition to Xarelto 20mg daily today. Will recheck incision site this afternoon. If stable, then may discharge home this afternoon.
[2023-08-31] MEDS: Insulin Lispro 100 UNIT/ML INSULN.PEN SC ×3 (11:23→20:52)
[2023-08-31 11:42] LABS: Bedside Glucose 161 mg/dL (74-106)
--- NOTE | 2023-08-31 15:34 | CASEMGMT ---
Updated progress notes and HHC order sent to [facility] via [facility] at this time.
[2023-08-31 16:45] LABS: Bedside Glucose 167 mg/dL (74-106)
[2023-08-31] MEDS: Atorvastatin Calcium 40 MG Tablet PO (20:46)
[2023-08-31 21:09] LABS: Bedside Glucose 175 mg/dL (74-106)
[2023-09-01] VITALS: PULSE 76; RESP 16; O2SAT 95
[2023-09-01 03:00] VITALS: BP 152/69; PULSE 72; RESP 15; TEMP 36.4; O2SAT 99
[2023-09-01 04:00] VITALS: PULSE 80; RESP 16; O2SAT 94
[2023-09-01 04:48] VITALS: BMI 32.7
[2023-09-01] MEDS: Acetaminophen 500 MG Tablet 1000 MG PO (04:54)
[2023-09-01] MEDS: Gabapentin 300 MG Capsule PO (04:55)
[2023-09-01 05:00] VITALS: BP 147/54; PULSE 83; RESP 16; TEMP 36.2; O2SAT 95
--- NOTE | 2023-09-01 07:50 | PCM.PN.SRG ---
Subjective Subjective Malgorzata was resting comfortably in bed this morning. She reports she slept well last night, uneventful. No further bleeding from her L thigh incision site, the dressing remains C/D/I. She reports her pain is overall much improved from prior to surgery and she feels today that the numbness is starting to improve a bit. She feels ready for discharge home. Her sister will be living with her to help her recover these next few weeks. Objective Data Objective Data Vital Signs: Vital Signs Temp Pulse Resp BP Pulse Ox O2 Del Method O2 Flow Rate 97.2 F L 83 16 147/54 H 95 Room Air 2 09/01/23 05:00 09/01/23 05:00 09/01/23 05:00 09/01/23 05:00 09/01/23 05:00 09/01/23 05:00 08/28/23 07:00 Oxygen Flow Rate (L/min) 2 Oxygen Delivery Method Room Air Weight: 167 lb 8.821 oz Body Mass Index (BMI) 32.7 Intake & Output: Intake and Output for Last 24 Hours 08/30/23 08/31/23 09/01/23 23:59 23:59 23:59 Intake Total 780.45 / 930.45 1270 / 1470 300 / 300 Output Total Balance 779.45 / 929.45 1270 / 1470 300 / 300 Lab / Micro Data 08/31/23 06:30 08/30/23 05:30 Labs: Laboratory Results - last 24 hr 08/30/23 12:45: Crossmatch See Detail 08/31/23 08:29: POC Glucose 111 H 08/31/23 11:22: POC Glucose 161 H 08/31/23 16:24: POC Glucose 167 H 08/31/23 20:50: POC Glucose 175 H Physical Exam Const alert, oriented x3 and no apparent distress General Appearance: cooperative and comfortable HEENT normocephalic, head/scalp atraumatic, hearing grossly normal bilaterally, external ears normal and external nose normal Eyes EOMs intact bilaterally General Eye: normal appearance of both eyes Neck General: normal visual inspection and trachea midline Resp normal respiratory effort, normal air movement, no retractions and no use of accessory muscles Effort and Inspection: able to speak in complete sentences; Negative for labored, stridor or audible wheezes Cardio regular rate and regular rhythm Extremity Extremity Narrative: R DP and PT pulses palpable. R foot is warm and pink. Moderate edema is noted consistent with reperfusion. R leg incision sites with postoperative dressings C/D/I. No bleeding noted. Mild ecchymosis around the proximal thigh incision but soft to palpation with expected mild tenderness. L leg incision sites with dressings C/D/I. No bleed-through noted. L pedal pulses palpable. Skin no rashes or lesions noted Neuro oriented x3, CN's II-XII intact bilaterally, moves all extremities and no focal motor deficits Speech: speech normal Psych mental status grossly normal, cooperative, affect normal, speech normal and activity/motor behavior normal Judgement: judgement good Assessment & Plan Assessment/Plan (1) Atherosclerosis of [place] artery of right leg with rest pain: PLAN: There has been no further bleeding from the L thigh incision site, dressing remains C/D/I. All other incision sites are satisfactory in appearance with dressings C/D/I. Her pedal pulses are palpable bilaterally. Plan to discharge on Xarelto 20mg daily. Will stop antiplatelet agents for now as prior stents have been bypassed and no new stents placed. I have provided her samples of the Xarelto. Discharge to home with family this morning. She also has [facility] in place.
--- NOTE | 2023-09-01 07:55 | PCM.DC ---
Discharge Instructions Diet Discharge Diet: Carb Control Diet Activity Weight Bearing Status: Weight bearing as tolerated Lifting Restrictions: Do not lift greater than 20 pounds for 3 weeks Dressing / Incision Call your doctor if your incision/area has: Sudden Increased Bleeding, Increased Pain/ Swelling and Foul Smelling Discharge Call your doctor if you observe: Fever of 101 or Higher and Uncontrolled pain Additional Dressing/Incision Instructions:: Leave the dressing over your left thigh incision site in place for an additional 3-4 days if possible. Otherwise, you may remove all other incision site dressings tomorrow. The incisions are closed with skin glue which will continue to protect them after the dressings are removed. The skin glue will peel/flake away on its own over the next few weeks, please do not pick at it. Do not submerge the incision sites for 3 weeks. Follow Up Care Please Follow Up With: Jillian Cao PA When: 09/21/23 at 1:00 PM Discharge Plan Admission Admit Date/Time: 08/25/23 07:16 Primary Reason for Your Visit: Intractable R foot pain, RLE atherosclerosis Attending Provider: Ivan Ortiz Primary Care Provider: Josiah Lerma Consulting Providers: Leni Tate; Dayna Lott; Juanita Vang; Esau Perry; Iván Bragg; Duc Mustafa; Karla Mcdonough; Kenyon Piper; Lorne Davis; Madi Klein; Markus Jenkins COMPOSITE SCIENCE TEACHER; Leni Barry NP; Mckenna Infante Instructions Additional Instructions / Restrictions: Leave the dressing over your left thigh incision site in place for an additional 3-4 days if possible. Otherwise, you may remove all other incision site dressings tomorrow. The incisions are closed with skin glue which will continue to protect them after the dressings are removed. The skin glue will peel/flake away on its own over the next few weeks, please do not pick at it. Do not submerge the incision sites for 3 weeks. Do not lift greater than 20 pounds for 3 weeks. Otherwise, please proceed with activity as tolerated. You have been prescribed Xarelto 20mg tablet to be taken by mouth once daily. This is a blood thinning medication. Please continue to take this daily as prescribed. Please stop your Aspirin 81mg daily and Plavix 75 mg daily for now. You have been prescribed oxycodone 5 mg tablet to be taken by mouth every 6-8 hours as needed for pain. You may take this in addition to Tylenol. Do not take this in addition to any other prescription pain medications unless specifically instructed to do so. You are scheduled for follow-up in the office on 09/21/2023 at 1:00 PM. If you need to change this appointment or have any other questions/concerns, please contact the office at [phone]. Discharge Orders/Prescriptions Prescriptions: New docusate sodium 100 mg Capsule 100 mg PO BID 7 Days Qty: 14 0RF oxycodone 5 mg Tablet 5 mg PO Q6H PRN PRN (Reason: Pain Score 4-10) 5 Days Qty: 20 0RF Continued lisinopril 10 mg tablet 10 mg PO DAILY atorvastatin 40 mg tablet 40 mg PO QHS Qty: 30 2RF Xarelto 20 mg tablet 20 mg PO DAILY Qty: 30 0RF Rx Instructions: must administer with evening meal metformin 1,000 mg tablet 1,000 mg PO BID gentamicin 0.1 % cream 1 applic topical BID gabapentin 300 mg capsule 300 mg PO TID cilostazol 50 mg tablet 50 mg PO BID Discontinued aspirin [Adult Aspirin Regimen] 81 mg tablet,delayed release (DR/EC) 81 mg PO DAILY Qty: 30 2RF clopidogrel [Plavix] 75 mg tablet 75 mg PO DAILY Referrals / Follow Up: Josiah Lerma DO [Primary Care Provider] - Disposition Disposition (needs filled in before D/C Order can be placed): Home Health Service
--- NOTE | 2023-09-01 08:07 | PCM.DC.SUM ---
Providers Date of Admission: 08/25/23 Primary Care Physician: Dr. Josiah Lerma, Consultations 08/25/23 07:51 Consult: Onc/Wound/correctional substance abuse counselor Routine Comment: wound on back of right calf 08/25/23 08:24 Consult: Cardiology Routine Consulting Provider: Estefanía Topete Reason for Consult: Preoperative clearance EMERGENT Consult: No MD Notified: Yes Date Notified: 08/25/23 Time Notified: 08:34 Method of Notification: Text Reason For Visit: SUPERFICIAL FEMORAL ARTERY OCCLUSION Diagnosis Discharge Diagnosis (1) Atherosclerosis of [place] artery of right leg with rest pain: Status: Acute Code(s): I70.221 - Atherosclerosis of [place] arteries of extremities with rest pain, right leg Plan: There has been no further bleeding from the L thigh incision site, dressing remains C/D/I. All other incision sites are satisfactory in appearance with dressings C/D/I. Her pedal pulses are palpable bilaterally. Plan to discharge on Xarelto 20mg daily. Will stop antiplatelet agents for now as prior stents have been bypassed and no new stents placed. I have provided her samples of the Xarelto. Discharge to home with family this morning. She also has [facility] in place. Medications at Discharge Home Medications metformin 1,000 mg tablet 1,000 mg PO BID diabetes 01/12/23 lisinopril 10 mg tablet 10 mg PO DAILY blood pressure 02/01/23 atorvastatin 40 mg tablet 40 mg PO QHS #30 tabs 04/28/23 rivaroxaban 20 mg tablet (Xarelto) 20 mg PO DAILY #30 tabs 08/16/23 cilostazol 50 mg tablet 50 mg PO BID cilostazol 08/25/23 gabapentin 300 mg capsule 300 mg PO TID nerve pain 08/25/23 gentamicin 0.1 % topical cream 1 applic topical BID wound on left leg 08/25/23 docusate sodium 100 mg capsule 100 mg PO BID 7 days #14 caps 09/01/23 oxycodone 5 mg tablet 5 mg PO Q6H PRN PRN Pain Score 4-10 5 days #20 tabs 09/01/23 Hospital Course Operations - (R fem-AT bypass with reversed GSV) Summary of Care Provided Hospital Course: JEROD TODD, is a 58 F who presented to the [facility] ER on 08/25/23 with worsening pain and increased numbness/tingling in her R foot. She is well known to our office. She is s/p R popliteal atherectomy/stent and R peroneal angioplasty on 03/03/23 which was completed to improve inflow prior to her R fifth toe amputation on 03/07/23. She did end up healing well from this amputation. Unfortunately, about 5-6 weeks ago she had recurrence of her RLE claudication with intermittent rest pain which has progressively worsened. She also has a R medial calf wound which has been present about 8 weeks and now with delayed healing. She had arterial studies on 08/16/23 showing R MAKAYLA 0.32 and duplex showing occluded SFA/pop stent, PT and distal peroneal occlusion, and AT with diminished waveforms. I saw her on an outpatient basis at which time her symptoms had been stable for several weeks. I had initiated Xarelto and planned for outpatient imaging and intervention if possible. CTA was completed today which confirmed SFA/pop occlusion and significant stenosis though the PT. She was admitted for pain management and more urgent vascular intervention. On 08/26/23, she underwent right superficial femoral artery to anterior tibial bypass with reversed GSV. She tolerated the procedure well. Postoperatively, she was routinely admitted to the ICU for hemodynamic monitoring. She did have expected postoperative anemia and ultimately receive 2 units PRBC with good response. She did have persistent oozing from her L thigh harvest site, when dressing was removed dermabond was noted to have poor adherence. The wound was redressed with surgicel and new dermabond application. There has been no further oozing since then. She has had significant improvement in her vascular status following surgery with no palpable R pedal pulses. She has done well with PT/OT here and they recommended ongoing outpatient therapy which she will receive through [facility]. She has been tolerating a normal diet and voiding without difficulty. Her pain is well controlled on oral regimen. She does have noted RLE edema which is expected secondary to reperfusion. She is medically stable for discharge home with her family and [facility] in place. She will continue Xarelto 20mg daily at discharge, ASA/Plavix will be stopped for now. She is scheduled for outpatient follow-up in the office on 09/21/2023. She will continue to follow with Dr. Stoner for wound care. Physical Exam Const alert, oriented x3 and no apparent distress General Appearance: cooperative and comfortable HEENT normocephalic, head/scalp atraumatic, hearing grossly normal bilaterally, external ears normal and external nose normal Eyes EOMs intact bilaterally General Eye: normal appearance of both eyes Neck General: normal visual inspection and trachea midline Resp normal respiratory effort, normal air movement, no retractions and no use of accessory muscles Effort and Inspection: able to speak in complete sentences; Negative for labored, stridor or audible wheezes Cardio regular rate and regular rhythm Extremity Extremity Narrative: R DP and PT pulses palpable. R foot is warm and pink. Moderate edema is noted consistent with reperfusion. R leg incision sites with postoperative dressings C/D/I. No bleeding noted. Mild ecchymosis around the proximal thigh incision but soft to palpation with expected mild tenderness. L leg incision sites with dressings C/D/I. No bleed-through noted. L pedal pulses palpable. Skin no rashes or lesions noted Neuro oriented x3, CN's II-XII intact bilaterally, moves all extremities and no focal motor deficits Speech: speech normal Psych mental status grossly normal, cooperative, affect normal, speech normal and activity/motor behavior normal Judgement: judgement good Weight / BMI Weight Weight: 167 lb 8.821 oz Body Mass Index (BMI) 32.7 ABG / Lab / Microbiology Data 08/31/23 06:30 08/30/23 05:30 Laboratory: Laboratory Results - last 24 hr 08/30/23 12:45: Crossmatch See Detail 08/31/23 08:29: POC Glucose 111 H 08/31/23 11:22: POC Glucose 161 H 08/31/23 16:24: POC Glucose 167 H 08/31/23 20:50: POC Glucose 175 H D/C Instructions Discharge Diet: Carb Control Diet Weight Bearing Status: Weight bearing as tolerated Call your doctor if your incision/area has: Sudden Increased Bleeding, Increased Pain/ Swelling and Foul Smelling Discharge Call your doctor if you observe: Fever of 101 or Higher and Uncontrolled pain Additional Dressing/Incision Instructions: Leave the dressing over your left thigh incision site in place for an additional 3-4 days if possible. Otherwise, you may remove all other incision site dressings tomorrow. The incisions are closed with skin glue which will continue to protect them after the dressings are removed. The skin glue will peel/flake away on its own over the next few weeks, please do not pick at it. Do not submerge the incision sites for 3 weeks. Please Follow Up With: Jillian Cao PA When: 09/21/23 at 1:00 PM Meaningful Use Info Meaningful Use Meaningful Use Diagnoses (Choose all that apply): None applicable Ischemic Stroke Statin Dosing Therapy Reference: STATIN DOSE THERAPY REFERENCE: * Patients > 75 years receive moderate or high dose statin therapy. * Patients 75 years or YOUNGER should receive HIGH intensity statin dose unless contraindicated. You will be required to document reason for non-treatment if statin daily dose does not meet guidelines. HIGH DOSE STATIN THERAPY DAILY Atorvastatin > than or = to 40 mg Rosuvastatin > than or = to 20 mg Amlodipine + Atorvastatin > than or = to 2.5/40 mg Ezetimibe + Simvastatin 10/80 mg Simvastatin 80mg Discharge Plan Admission Admit Date/Time: 08/25/23 07:16 Primary Reason for Your Visit: Intractable R foot pain, RLE atherosclerosis Attending Provider: Ivan Ortiz Primary Care Provider: Josiah Lerma Consulting Providers: Leni Tate; Dayna Lott; Juanita Vang; Esau Perry; Iván Bragg; Duc Mustafa; Karla Mcdonough; Kenyon Piper; Lorne Davis; Madi Klein; Markus Jenkins NP; Leni Barry NP; Mckenna Infante Instructions Additional Instructions / Restrictions: Leave the dressing over your left thigh incision site in place for an additional 3-4 days if possible. Otherwise, you may remove all other incision site dressings tomorrow. The incisions are closed with skin glue which will continue to protect them after the dressings are removed. The skin glue will peel/flake away on its own over the next few weeks, please do not pick at it. Do not submerge the incision sites for 3 weeks. Do not lift greater than 20 pounds for 3 weeks. Otherwise, please proceed with activity as tolerated. You have been prescribed Xarelto 20mg tablet to be taken by mouth once daily. This is a blood thinning medication. Please continue to take this daily as prescribed. Please stop your Aspirin 81mg daily and Plavix 75 mg daily for now. You have been prescribed oxycodone 5 mg tablet to be taken by mouth every 6-8 hours as needed for pain. You may take this in addition to Tylenol. Do not take this in addition to any other prescription pain medications unless specifically instructed to do so. You are scheduled for follow-up in the office on 09/21/2023 at 1:00 PM. If you need to change this appointment or have any other questions/concerns, please contact the office at [phone]. Discharge Orders/Prescriptions Prescriptions: New docusate sodium 100 mg Capsule 100 mg PO BID 7 Days Qty: 14 0RF oxycodone 5 mg Tablet 5 mg PO Q6H PRN PRN (Reason: Pain Score 4-10) 5 Days Qty: 20 0RF Continued lisinopril 10 mg tablet 10 mg PO DAILY atorvastatin 40 mg tablet 40 mg PO QHS Qty: 30 2RF Xarelto 20 mg tablet 20 mg PO DAILY Qty: 30 0RF Rx Instructions: must administer with evening meal metformin 1,000 mg tablet 1,000 mg PO BID gentamicin 0.1 % cream 1 applic topical BID gabapentin 300 mg capsule 300 mg PO TID cilostazol 50 mg tablet 50 mg PO BID Discontinued aspirin [Adult Aspirin Regimen] 81 mg tablet,delayed release (DR/EC) 81 mg PO DAILY Qty: 30 2RF clopidogrel [Plavix] 75 mg tablet 75 mg PO DAILY Referrals / Follow Up: Josiah Lerma DO [Primary Care Provider] - Disposition Disposition (needs filled in before D/C Order can be placed): Home Health Service
[2023-09-01 08:21] LABS: Bedside Glucose 127 mg/dL (74-106)
[2023-09-01] MEDS: Famotidine 20 MG Tablet PO (08:28)
[2023-09-01] MEDS: Lisinopril 10 MG Tablet PO (08:28)
[2023-09-01] MEDS: Docusate Sodium 100 MG Capsule PO (08:28)
[2023-09-01] MEDS: GENTAMICIN SULFATE TOPICAL (08:29)
[2023-09-01] MEDS: CHLORHEXIDINE GLUC 2% CLOTH 1 EACH TOWELETTE TOPICAL (08:35)
--- NOTE | 2023-09-01 08:53 | CASEMGMT ---
Addendum entered by Susanna Norris 09/01/23 09:26: RN CM to pt room at this time and reiterated with the pt that SOC is tomorrow. Pt states understanding and denies further questions or concerns. Pt states that she is ready for DC today. Original Note: DC instructions and wound information sent to [facility] via [facility] at this time. SOC is still planned for Tuesday.
[2023-09-01 09:00] VITALS: BP 133/60; PULSE 92; RESP 18; TEMP 36.6; O2SAT 98
== END 2023-09-01 10:23 | disposition home health service (06) | DRG 253 ==
LOC: ED 08-25 06:11 → PCU 08-25 08:01 → ICU 08-26 20:12
PROVIDERS: Admitting Provider Surgery Trauma Surgery; Emergency Provider Emergency Medicine; PCP Family Medicine; Visit Provider Surgery Trauma Surgery
PROC: 041K09Q Bypass Right Femoral Artery to Lower Extremity Artery with Autologous Venous Tissue, Open Approach (ICD-10-PCS; principal; 2023-08-26 08:30)
DX: T82.868A Thrombosis due to vascular prosthetic devices, implants and grafts, initial encounter (principal); D62 Acute posthemorrhagic anemia; E11.51 Type 2 diabetes mellitus with diabetic peripheral angiopathy without gangrene; I70.221 Atherosclerosis of native arteries of extremities with rest pain, right leg; I10 Essential (primary) hypertension; S81.801A Unspecified open wound, right lower leg, initial encounter; E78.00 Pure hypercholesterolemia, unspecified; Z89.421 Acquired absence of other right toe(s); Z79.01 Long term (current) use of anticoagulants; Z79.02 Long term (current) use of antithrombotics/antiplatelets; Z79.82 Long term (current) use of aspirin; Z79.84 Long term (current) use of oral hypoglycemic drugs; Z79.899 Other long term (current) drug therapy; Z95.820 Peripheral vascular angioplasty status with implants and grafts
CPT/HCPCS: 36415; 75635; 78452; 80048; 82962; 83605; 83735; 85014; 85018; 85025; 85610; 85730; 86850; 86900; 86901; 86920; 86922; 93005; 93017; 93306; 93970; 94668; 97162; 97166; 97530; 97535; 97802; 99252; 99285; A4648; A9500; J7030; J7040; J7120; P9016; Q9967; A4216; G0463; J2405; J2785

== ENCOUNTER → 2023-09-13 | Outpatient (CLI) | payer SELFPAY ==
[2023-09-13 17:50] LABS: Absolute Lymphocyte Count 2.01 X10^3/uL (0.83-4.51); Absolute Neutrophil Count 3.1 X10^3/uL (2.0-7.7); Basophil# 0.04 X10^3/uL; Basophil% 0.7 % (0-1); Eosinophil# 0.21 X10^3/uL; Eosinophils% 3.5 % (0-5); Hematocrit 31.1 % (37-47); Hemoglobin 9.8 g/dL (12.0-15.0); Lymphocyte # 2.01 X10^3/ul (0.83-4.51); Mean Corp Hgb Conc 31.5 g/dL (32-36); Mean Corpuscular Hgb 26.8 pg (27.0-32.0); Mean Platelet Vol. 8.7 fl (6.2-12.0); Monocyte% 10.1 % (0-10); NRBC Flagged by Analyzer 0 % (0-5); Neutrophil # 3.05 X10^3/uL (2.7-7.7); Neutrophil % 51.5 % (47-70); Platelet Count 456 K/mm3 (150-450); RBC Distribution Width CV 16.1 % (11.6-14.6); RBC Distribution Width SD 49.8 fl (35.1-43.9); Red Blood Count 3.66 M/mm3 (4.2-5.4); White Blood Count 5.9 K/mm3 (4.4-11.0)
[2023-09-13 18:13] LABS: Color, Urine Yellow (Yellow); Glucose, Dipstick Normal (Normal); Ketone-Dipstick Negative (Negative); Leukocyte Esterase-Dipstick 100 /ul (Negative); Nitrite-Dipstick Positive (Negative); Occult Blood-Urine 10 /ul (Negative); Protein-Dipstick 15 mg/dl (Negative); Urine Clarity Clear (Clear); Urine Urobilinogen 1 mg/dl (Normal)
[2023-09-13 18:22] LABS: Urine Bilirubin Dipstick 1 mg/dL (Negative)
== END | disposition home or self-care (01) ==
PROVIDERS: PCP Family Medicine; Referring Provider Physician Assistant; Visit Provider Physician Assistant
DX: I10 Essential (primary) hypertension (principal); I73.9 Peripheral vascular disease, unspecified; Z48.812 Encounter for surgical aftercare following surgery on the circulatory system; R39.15 Urgency of urination
CPT/HCPCS: 81002; 85025

== ENCOUNTER → 2023-09-27 | Outpatient (CLI) | payer SELFPAY ==
--- NOTE | 2023-09-27 08:57 | ADUL_ITS ---
Reason For Study: S/P Rt SFA to SHERRI bypass Right Velocities Ext. Iliac Artery, dist = 147.5 cm./sec. Common Femoral Artery, mid = 109.5 cm./sec. Profunda Femoral Artery = 67.8 cm./sec. Supf Femoral Artery, prox = 113.9 cm./sec. SFA to SHERRI Bypass SFA mid, prox to bypass, 120.5 cm/sec. SFA mid, prox anastamosis, 107.3 cm/sec. Prox bypass, 89.8 cm/sec. Mid bypass, 107.6 cm/sec. Distal bypass, 136.8 cm/sec. SHERRI prox, distal anastamosis, 145.9 cm/sec. SHERRI prox, distal to bypass, 91.1 cm/sec. SHERRI mid, 114.9 cm/sec. SHERRI distal, 140.3 cm/sec. Post. Tibial Artery, prox = 55.1 cm./sec. REMOTE COMPUTER TERMINAL OPERATOR mid-distal, No flow. Peroneal Artery, prox = 105.8 cm./sec. Peroneal Artery, mid = 46.5 cm./sec. Peroneal Artery,dist = 46.5 cm./sec. Procedure Exam performed in department. /US Art Duplex Unilat Lower Ext Interpretation Summary Patent right SFA to anterior tibial bypass with normal velocities and no eviden ce of stenosis. Ordering Physician: Jillian Cao Referring Physician: Josiah Lerma Performed By: Vero Gonzalez RVT
--- NOTE | 2023-09-27 08:57 | ART_ITS ---
Reason For Study: S/P Rt SFA to SHERRI bypass Procedure A bilateral lower extremity continuous wave Doppler with analog waveform analysis and ankle brachial indexes. Left Segmental Pressures Left brachial= 104mmHg. Left posterior tibial artery = 123mmHg. Left dorsalis pedis artery = 153mmHg. Left digit = 67 mmHg. The left dorsalis pedis waveforms are triphasic. The left posterior tibial artery waveforms are biphasic. Right Segmental Pressures Right brachial= 130mmHg. Right posterior tibial artery = 83mmHg. Right dorsalis pedis artery = 149mmHg. Right digit = 72 mmHg. The right dorsalis pedis waveforms are biphasic. The right posterior tibial artery waveforms are monophasic. Indices The right ankle brachial index by the dorsalis pedis is 1.15. The right ankle brachial index by the posterior tibial artery is 0.64. The right digital-brachial index is 0.55. The left ankle brachial index by the dorsalis pedis is 1.18. The left ankle brachial index by the posterior tibial artery is 0.95. The left digital-brachial index is 0.52. VL/Ankle Brachial Index Interpretation Summary Right MAKAYLA 1.15, normal. Doppler/PVR waveforms of the right ankle mildly diminis hed at rest. Left MAKAYLA 1.18, normal. Doppler/PVR waveforms of the left ankle normal at rest. Ordering Physician: Jillian Cao Referring Physician: Josiah Lerma Performed By: eVro Gonzalez RVT
== END | disposition home or self-care (01) ==
LOC: CVS 08:55
PROVIDERS: PCP Family Medicine; Referring Provider Physician Assistant; Visit Provider Physician Assistant
DX: Z98.890 Other specified postprocedural states (principal); I70.201 Unspecified atherosclerosis of native arteries of extremities, right leg; Z48.812 Encounter for surgical aftercare following surgery on the circulatory system
CPT/HCPCS: 93922; 93926

== ENCOUNTER → 2024-03-15 | Outpatient (CLI) | payer SELFPAY ==
--- NOTE | 2024-03-15 10:00 | ART_ITS ---
Reason For Study: S/P R SFA-SHERRI Bypass Procedure A bilateral lower extremity continuous wave Doppler with analog waveform analysis and ankle brachial indexes. Left Segmental Pressures Left brachial= 130mmHg. Left posterior tibial artery = 131mmHg. Left dorsalis pedis artery = 167mmHg. Left digit = 71 mmHg. The left dorsalis pedis waveforms are triphasic. The left posterior tibial artery waveforms are biphasic. Right Segmental Pressures Right brachial= 148mmHg. Right posterior tibial artery = 161mmHg. Right dorsalis pedis artery = 179mmHg. Right digit = 80 mmHg. The right dorsalis pedis waveforms are triphasic. The right posterior tibial artery waveforms are biphasic. Indices The right ankle brachial index by the dorsalis pedis is 1.21. The right ankle brachial index by the posterior tibial artery is 1.09. The right digital-brachial index is 0.54. The left ankle brachial index by the dorsalis pedis is 1.13. The left ankle brachial index by the posterior tibial artery is 0.89. The left digital-brachial index is 0.48. VL/Ankle Brachial Index Interpretation Summary Right MAKAYLA 1.21, normal. Doppler/PVR waveforms of the right ankle normal at rest . TBI diminished, pedal/digit disease vs spasm. Left MAKAYLA 1.13, normal. Doppler/PVR waveforms of the left ankle normal at rest. TBI diminished, pedal/digit disease vs spasm. Ordering Physician: Jillian Cao Referring Physician: Josiah Lerma MD Performed By: Vero Gonzalez RVT and Student
--- NOTE | 2024-03-15 10:00 | ADUL_ITS ---
Reason For Study: S/P R SFA-SHERRI Bypass Right Velocities Ext. Iliac Artery, dist = 119.5 cm./sec. Common Femoral Artery, mid = 76.0 cm./sec. Supf Femoral Artery, prox = 103.00 cm./sec. Profunda Femoral Artery = 57.6 cm./sec. SFA to SHERRI Bypass SFA mid, prox to bypass, 116.1 cm/sec. SFA mid, prox anastamosis, 92.0 cm/sec. Prox bypass, 127.1 cm/sec. Mid bypass, 94.2 cm/sec. Distal bypass, 54.4 cm/sec. HSERRI prox, distal anastamosis, 69.1 cm/sec. SHERRI prox, distal to bypass, 72.2 cm/sec. SHERRI mid, 87.6 cm/sec. SHERRI distal, 98.6 cm/sec. MANAGER RESP[employer]ATORY prox, 19.9 cm/s. MA[employer]GER [employer] mid-distal, No Flow. Peroneal Artery, prox = 72.3 cm./sec. Peroneal Artery, mid = 39.5 cm./sec. Peroneal Artery,dist = 27.0 cm./sec. Procedure Exam performed in department. /US Art Duplex Unilat Lower Ext Interpretation Summary Patent right SFA-anterior tibial bypass with normal velocities and no evidence of stenosis. Ordering Physician: Jillian Cao Referring Physician: Jillian Cao Performed By: Vero Gonzalez RVT and Student
== END | disposition home or self-care (01) ==
LOC: CVS 09:58
PROVIDERS: PCP Family Medicine; Referring Provider Physician Assistant; Visit Provider Physician Assistant
DX: Z48.812 Encounter for surgical aftercare following surgery on the circulatory system (principal); I73.9 Peripheral vascular disease, unspecified; Z98.890 Other specified postprocedural states
CPT/HCPCS: 93922; 93926

== ENCOUNTER → 2024-10-05 | Outpatient (CLI) | payer SELFPAY ==
--- NOTE | 2024-10-05 12:46 | ADUL_ITS ---
Reason For Study Reason For Study: S/P Rt SFA-SHERRI BPG Right Velocities Ext. Iliac Artery, dist = 125.1 cm./sec. Common Femoral Artery, mid = 96.9 cm./sec. Profunda Femoral Artery = 55.1 cm./sec. Supf Femoral Artery, prox = 100.6 cm./sec. SFA to SHERRI Bypass SFA mid, prox anastamosis, 203.3 cm/sec. Prox bypass, 133.7 cm/sec. Mid bypass, 98.6 cm/sec. BPG at KNEE, 96.4 cm/s Distal bypass, 94.2 cm/sec. SHERRI prox, distal anastamosis, 133.7 cm/sec. SHERRI prox, distal to bypass, 100.8 cm/sec. SHERRI mid, 116.1 cm/sec. SHERRI distal, 138.9 cm/sec. CHEMICAL DEPENDENCY THERAPIST - Unable to visualize flow throughout. Peroneal Artery, prox = 94.2 cm./sec. Peroneal Artery, mid = 74.4 cm./sec. Peroneal Artery,dist = 74.4 cm./sec. Procedure The exam was diagnostic. Exam performed in department. VL/US Art Duplex Unilat Lower Ext Interpretation Summary Patent right SFA-anterior tibial bypass with normal velocities and no evidence of stenosis. Ordering Physician: Jillian Cao Referring Physician: Josiah Lerma Performed By: Erich Johnson, RVT
--- NOTE | 2024-10-05 12:46 | ART_ITS ---
Reason For Study Reason For Study: Rt SFA - SHERRI BPG Procedure A bilateral lower extremity continuous wave Doppler with analog waveform analysis and ankle brachial indexes. Left Segmental Pressures Left brachial= 132mmHg. Left posterior tibial artery = 100mmHg. Left dorsalis pedis artery = 161mmHg. Left digit = 88 mmHg. The left posterior tibial artery waveforms are triphasic. The left dorsalis pedis waveforms are biphasic. Right Segmental Pressures Right brachial= 131mmHg. Right posterior tibial artery = 120mmHg. Right dorsalis pedis artery = 145mmHg. Right digit = 95 mmHg. The right posterior tibial artery waveforms are biphasic. The right dorsalis pedis waveforms are triphasic. Indices The right ankle brachial index by the posterior tibial artery is 0.91. The right ankle brachial index by the dorsalis pedis is 1.10. The right digital-brachial index is 0.72. The left ankle brachial index by the posterior tibial artery is 0.76. The left ankle brachial index by the dorsalis pedis is 1.22. The left digital-brachial index is 0.67. VL/Ankle Brachial Index Interpretation Summary Right MAKAYLA 1.1, normal. Doppler/PVR waveforms of the right ankle normal at rest. TBI diminished, pedal/digit disease vs spasm. Left MAKAYLA 1.22, normal. Doppler/PVR waveforms of the left ankle normal at rest. TBI diminished, pedal/digit disease vs spasm. Ordering Physician: Jillian Cao Referring Physician: Josiah Lerma Performed By: Erich Johnson, RVT
--- OUTSIDE RECORDS SUMMARY | 2024-10-05 19:44 | XMS RPT_ITS | CCD ---
Author Organization [facility] Care Team Providers Care Master Planner Name Role Phone Dr. Josiah Lerma Primary Care Provider [phone] Dr. Ivan Ortiz Attending Provider [phone] Jeremiah Stoner Referring Provider Dr. Josiah Lerma Referring Provider [phone] RAEANN Cao Attending Provider [phone] Ivan Oritz Referring Provider [phone] Ivan Ortiz Other Provider Cao, Jillian Referring Unavailable Ivan Ortiz Attending Unavailable Maria Guadalupe, Josiah Primary Care Unavailable Cao, Jillian Referring Unavailable Cao, Jillian Attending Unavailable Maria Guadalupe, Josiah Primary Care Unavailable Cao, Jillian Attending Unavailable Cao, Jillian Referring Unavailable Maria Guadalupe, Josiah Primary Care Unavailable Cao, Jillian Attending Unavailable Maria Guadalupe, Josiah Primary Care Unavailable Maria Guadalupe, Josiah Referring Unavailable Cao, Jillian Attending Unavailable Maria Guadalupe, Josiah Primary Care Unavailable Maria Guadalupe, Josiah Referring Unavailable Cao, Jillian Attending Unavailable Maria Guadalupe, Josiah Referring Unavailable Maria Guadalupe, Josiah Primary Care Unavailable Dr. Josiah Lerma DO Primary Care Provider [phone] Jillian Goodwin Attending Provider [phone] Jillian Goodwin Referring Provider [phone] Josiah Lerma DO Referring Provider Medications Current Medications Medication Drug Class(es) Dates Sig (Normalized) Sig (Original) atorvastatin 40 mg oral tablet (6 sources) HMG-CoA Reductase Inhibitor Start: 02-01-2023 End: 11-28-2023 take 1 tablet by mouth at bedtime Atorvastatin 40 mg tablet Active 40 mg PO AT BEDTIME 90 November 28, 2023 5:16pm cilostazol 50 mg oral tablet (4 sources) Phosphodiesterase 3 Inhibitor Start: 08-16-2023 End: 04-27-2024 take 1 tablet by mouth twice daily Cilostazol 50 mg tablet Active 50 mg PO TWICE A DAY 60 April 27, 2024 2:37pm cilostazol ferrous fumarate 325 mg oral tablet (1 source) Start: 03-16-2024 take 1 tablet by mouth once daily Ferrous Fumarate 325 mg (106 mg iron) tablet Active 325 mg PO daily March 16, 2024 1:00am lisinopril 10 mg oral tablet (8 sources) Angiotensin Converting Enzyme Inhibitor Start: 02-01-2023 take 1 tablet by mouth once daily Lisinopril 10 mg tablet Active 10 mg PO DAILY February 01, 2023 1:00am blood pressure Start: 01-12-2023 End: 02-01-2023 lisinopril Discontinued .Rou te January 12, 2023 12:00am February 01, 2023 12:14pm Start: 01-12-2023 End: 02-01-2023 lisinopril Discontinued .Rou te January 11, 2023 11:00pm February 01, 2023 11:14am metFORMIN hydrochloride 1000 mg oral tablet (4 sources) Biguanide Start: 01-12-2023 take 1 tablet by mouth twice daily Metformin 1,000 mg tablet Active 1000 mg PO TWICE A DAY January 12, 2023 12:00am diabetes rivaroxaban 2.5 mg oral tablet (3 sources) Factor Xa Inhibitor Start: 03-16-2024 take 1 tablet by mouth twice daily Rivaroxaban (Xarelto) 2.5 mg tablet Active 2.5 mg PO TWICE A DAY 60 March 16, 2024 1:00am Start: 08-16-2023 End: 10-05-2024 take 1 tablet by mouth once daily at dinner Rivaroxaban (Xarelto) 20 mg tablet Discontinued 20 mg PO DAILY 30 October 04, 2023 7:19am October 05, 2024 2:18pm must administer with evening meal Completed/Discontinued Medications Medication Drug Class(es) Dates Sig (Normalized) Sig (Original) acetaminophen 325 mg / oxyCODONE hydrochloride 5 mg oral tablet (2 sources) Opioid Agonist Start: 03-04-2023 End: 08-16-2023 Oxycodone-Acetamino phen (Percocet) 5-325 mg tablet Discontinued 1 {tbl} PO EVERY 6 HOURS as needed for pain 28 7 0 March 04, 2023 August 16, 2023 2:26pm Other acute postprocedural pain Other acute postprocedural pain ascorbic acid 1000 mg oral tablet (2 sources) Vitamin C Start: 03-04-2023 End: 08-16-2023 take 1 g by mouth once daily Ascorbic Acid (Vitamin C) (Vitamin C) 1,000 mg tablet Discontinued 1 g PO DAILY 90 90 0 March 04, 2023 1:00am August 16, 2023 2:25pm aspirin 81 mg oral tablet (5 sources) Platelet Aggregation Inhibitor, Nonsteroidal Anti-inflammatory Drug Start: 10-05-2024 take 1 tablet by mouth once daily Aspirin 81 mg tablet Discontinued 81 mg PO daily October 05, 2024 12:00am Start: 02-01-2023 End: 09-01-2023 take 1 tablet by mouth once daily Aspirin (Adult Aspirin Regimen) 81 mg tablet,delayed release (DR/EC) Discontinued 81 mg PO DAILY 30 2 February 01, 2023 1:00am September 01, 2023 8:03am calcium carbonate 1250 mg / cholecalciferol 600 unt oral tablet (2 sources) Vitamin D Start: 03-04-2023 End: 08-16-2023 Calcium Carbonate-Vitamin D3 (Os-Yoseph 500 + D3) 500 mg-15 mcg (600 unit) tablet Discontinued 1 {tbl} PO DAILY 90 90 0 March 04, 2023 1:00am August 16, 2023 2:25pm clopidogrel 75 mg oral tablet (4 sources) P2Y12 Platelet Inhibitor Start: 03-03-2023 End: 09-01-2023 take 1 tablet by mouth once daily Clopidogrel (Plavix) 75 mg tablet Discontinued 75 mg PO DAILY April 28, 2023 10:46am September 01, 2023 8:03am blood thinner cyclobenzaprine hydrochloride 10 mg oral tablet (2 sources) Muscle Relaxant Start: 03-04-2023 End: 08-16-2023 take 1 tablet by mouth three times daily Cyclobenzaprine 10 mg tablet Discontinued 10 mg PO THREE TIMES A DAY 21 7 0 March 04, 2023 1:00am August 16, 2023 2:26pm docusate sodium 100 mg oral capsule (3 sources) Start: 09-01-2023 End: 09-13-2023 take 1 capsule by mouth twice daily Docusate Sodium 100 mg Capsule Discontinued 100 mg PO TWICE A DAY 14 7 0 September 01, 2023 12:00am September 13, 2023 4:27pm Start: 03-04-2023 End: 08-16-2023 take 1 capsule by mouth once daily Docusate Sodium (Colace) 100 mg capsule Discontinued 100 mg PO DAILY 10 10 0 March 04, 2023 1:00am August 16, 2023 2:26pm gabapentin 300 mg oral capsule (2 sources) Anti-epileptic Agent Start: 08-25-2023 End: 03-16-2024 Gabapentin 300 mg capsule Discontinued 300 mg PO .prn October 12, 2023 8:32am March 16, 2024 10:55am nerve pain gentamicin 1 mg/ml topical cream (1 source) Start: 08-25-2023 End: 09-13-2023 Gentamicin 0.1 % cream Discontinued 1 NMA TOPICAL TWICE A DAY August 25, 2023 12:00am September 13, 2023 4:27pm wound on left leg levoFLOXacin 500 mg oral tablet (2 sources) Quinolone Antimicrobial Start: 03-11-2023 End: 08-16-2023 take 1 tablet by mouth once daily Levofloxacin 500 mg tablet Discontinued 500 mg PO DAILY 10 10 0 March 11, 2023 1:00am August 16, 2023 2:25pm nitrofurantoin, macrocrystals 25 mg / nitrofurantoin, monohydrate 75 mg oral capsule (1 source) Nitrofuran Antibacterial Start: 09-13-2023 End: 09-18-2023 take 1 capsule by mouth twice daily at mealtime Nitrofurantoin Monohyd/M-Cryst (Macrobid) 100 mg capsule Discontinued 100 mg PO TWICE A DAY 10 5 0 September 13, 2023 12:00am September 17, 2023 12:00am September 18, 2023 12:05am must administer with a meal/food oxyCODONE hydrochloride 5 mg oral tablet (1 source) Opioid Agonist Start: 09-01-2023 End: 09-13-2023 take 1 tablet by mouth every six hours as needed for pain Oxycodone 5 mg Tablet Discontinued 5 mg PO EVERY 6 HOURS NEEDED as needed for Pain Score 4-10 20 5 0 September 01, 2023 September 13, 2023 4:27pm Postoperative pain Other acute postprocedural pain Problems Active Problems Problem Classification Problem Date Documented Date Episodic/Chronic Chronic ulcer of skin (19 sources) 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 without evidence of necrosis; Translations: [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 withou] 02-09-2023 Chronic Diabetes mellitus without complication (9 sources) Diabetes mellitus; Translations: [Type 2 diabetes mellitus without complications] 02-01-2023 Chronic Essential hypertension (1 source) Hypertensive disorder; Translations: [Essential (primary) hypertension] 08-25-2023 Chronic Gangrene (12 sources) Atherosclerosis of artery of lower limb; Translations: [Atherosclerosis of unga arteries of extremities with gangrene, right leg] 03-01-2023 Chronic Comment on above: CTA- popliteal occlu zara, tibial reconstitution with AT dominant runoff Gangrene (13 sources) Gangrenous disorder; Translations: [Gangrene, not elsewhere classified] 01-12-2023 Episodic Infective arthritis and osteomyelitis (except that caused by tuberculosis or sexually transmitted disease) (10 sources) Osteomyelitis of right foot; Translations: [Osteomyelitis, unspecified] 01-12-2023 Chronic Open wounds of extremities (3 sources) Laceration of foot without foreign body; Translations: [Laceration without foreign body, right foot, initial encounter] 03-07-2023 Episodic Other aftercare (2 sources) Surgical follow-up; Translations: [Encounter for surgical aftercare following surgery on the circulatory system] 03-24-2023 Episodic Other nervous system disorders (2 sources) Acute postoperative pain; Translations: [Other acute postprocedural pain] 03-04-2023 Episodic Peripheral and visceral atherosclerosis (16 sources) Peripheral vascular disease; Translations: [Peripheral vascular disease, unspecified] Onset: 10-12-2023 01-12-2023 Chronic Residual codes; unclassified (2 sources) Other specified postprocedural states; Translations: [Other specified postprocedural states] Onset: 10-12-2023 Episodic Residual codes; unclassified (1 source) History of arterial bypass of lower limb artery; Translations: [Other specified postprocedural states] 09-14-2023 Episodic Comment on above: s/p R SFA to AT bypa ss with reversed GSV 08/26/23 Skin and subcutaneous tissue infections (8 sources) Cellulitis of right foot; Translations: [Cellulitis of right lower limb] 01-12-2023 Episodic Past or Other Problems Problem Classification Problem Date Documented Da te Episodic/Chronic Other aftercare (1 source) Encounter for surgical aftercare following surgery on the circulatory system; Translations: [Encounter for surgical aftercare following surgery on the circulatory system] Onset: 04-11-2024 Episodic Results Test Name Value Interpretation Reference Range Facility MR/BMS.BVSon 03-16-2024 MR/BMS.LYNN [facility] [address] [place] [address] OFFICE VISIT Date of Service: 03/16/24 MR#: [id number] Acct: [id number] Name: PEREZMALGORZATA ELDA Rep #: [id number] : 1965 Provider: RAEANN Angelo Age/Sex: 59/F Location: [facility] [place].BV Status: Signed Intake Vital Signs 08/30/23 16:04 03/16/24 09:51 Height 5 ft Weight: 173 lb BP 146/73 H Blood Pressure Location Lt brachial Position Sitting Respiration 16 Pulse 90 Pulse Source Monitor Temp 97.7 F L Temp Source Temporal Pulse Oximetry (%) 99 Oxygen Delivery Method room air Intake Visit Reasons: 6 M FU Is patient in pain?: No Allergies No Known Allergies Allergy (Verified 03/16/24 09:55) Medications ???Medication ???Instructions ???Recorded ???Confirmed ???Type metformin 1,000 mg tablet 1,000 mg PO BID diabetes 01/12/23 03/16/24 History lisinopril 10 mg tablet 10 mg PO DAILY blood pressure 02/01/23 03/16/24 History rivaroxaban 20 mg tablet (Xarelto) 20 mg PO DAILY #30 tabs 10/04/23 03/16/24 Rx cilostazol 50 mg tablet 50 mg PO BID cilostazol #60 tabs 10/12/23 03/16/24 Rx atorvastatin 40 mg tablet 40 mg PO QHS #90 tabs 11/28/23 03/16/24 Rx ferrous fumarate 325 mg (106 mg 325 mg PO QDAY 03/16/24 03/16/24 History iron) tablet rivaroxaban 2.5 mg tablet (Xarelto) 2.5 mg PO BID #60 tabs 03/16/24 03/16/24 Rx Is last menstrual period known: No Post menopausal: Yes Patient : No Have you fallen in the past year?: Yes PFSH Medical History Wears glasses Wears dentures Post-menopausal Diabetes High cholesterol Back pain Migraine headache Injury of head and neck Dietary restriction Shortness of breath on exertion Non-smoker History of pain when walking History of edema Heart murmur Surgical History No history of previous surgery Family History Other CAD (coronary artery disease) Diabetes Heart disease Myocardial infarction Social History Smoking Status: Never smoker HPI HPI HPI: MALGORZATA MARCIAL, is a 59 F who presents to the office today for six month follow-up. Recall that she was initially seen in our office for PAD with associated R fifth digit diabetic foot wound; she underwent R popliteal atherectomy/stent and R peroneal angioplasty 03/03/24 followed by R fifth digit amputation 03/07/23 which subsequently healed well. Then unfortunately 08/2023 developed a R calf wound and was found to have thrombosed popliteal stent so underwent R SFA-AT bypass with reversed GSV 08/26/23 and her wound subsequently healed. Her most recent arterial duplex and MAKAYLA 03/15/24 were satisfactory showing patent bypass and R MAKAYLA 1.21 with multiphasic waveforms. She has been taking Xarelto 20mg daily for the past 6 months; she shares that her PCP set her up with a place from [place] that provides the generic form of Xarelto at a much lower cost. She received a 3 month supply she thinks in January. She has not had any adverse bleeding. She reports that overall her RLE has been feeling very good. She does have some neuropathy but no recurrent rest pain/cramping/disco loration. No new or recurrent wounds. ROS General General: Yes weight change; No appetite, fatigue, colon cancer, breast cancer or weakness HEENT HEENT: No difficulty swallowing, eye injury, eye surgery, swollen glands or hoarseness Endo Endocrine: Yes diabetes mellitus; No thyroid disease, thyroid cancer, Hair loss, heat intolerance or cold intolerance Skin Skin: No rash or changing moles Musc Musculoskeletal: Yes joint pain; No back problems, arthritis, rheumatoid arthritis or gout Cardio Cardiovascular: Yes murmur; No pacemaker, heart disease, atrial fibrillation, high blood pressure, heart attack, heart stent, palpitations, shortness of breat with exertion or chest pain Psych Psychiatric: No depression, anxiety or hearing voices Resp Respiratory: No shortness of breath, No sleep apnea, No cough, No COPD, No asthma, No emphysema and No wheezing Gastro Gastrointestinal: No abdominal pain, No nausea or vomiting, No diarrhea, No constipation, No blood in stool, No acid reflux, No hemorrhoids, No ulcers, No gallbladder problem and No black,tarry stools Federico Hematologic: Yes blood thinners, No blood disorders, No bleeding, Yes anemia and No blood clots Neuro Neurologic: No system reviewed and no additional complaints, except as documented, No as per HPI, No abnormal gait, No abnormal hearing, No abnormal movements, No abnormal speech, No behavioral changes, No burning sensations, No confusion, No convulsions, No disequili (more content not included)... Normal [facility] Ankle Brachial Indexon 03-15 Ankle Brachial Index [facility] [address] [place] [address] Ankle Brachial Index 03/15/24 1037 MR#: [id number] Acct: [id number] Name: MALGORZATA MARCIAL Rep #: [id number] : 1965 59 From: Ivan Ortiz MD Attending Dr: RAEANN Angelo Status: REG CLI Ordering Dr: Jillian Cao Date: 03/15/24 Location: [facility] Sex: F C Admitted: Reason For Study: S/P R SFA-SHERRI Bypass Procedure A bilateral lower extremity continuous wave Doppler with analog waveform analysis and ankle brachial indexes. Left Segmental Pressures Left brachial= 130mmHg. Left posterior tibial artery = 131mmHg. Left dorsalis pedis artery = 167mmHg. Left digit = 71 mmHg. The left dorsalis pedis waveforms are triphasic. The left posterior tibial artery waveforms are biphasic. Right Segmental Pressures Right brachial= 148mmHg. Right posterior tibial artery = 161mmHg. Right dorsalis pedis artery = 179mmHg. Right digit = 80 mmHg. The right dorsalis pedis waveforms are triphasic. The right posterior tibial artery waveforms are biphasic. Indices The right ankle brachial index by the dorsalis pedis is 1.21. The right ankle brachial index by the posterior tibial artery is 1.09. The right digital-brachial index is 0.54. The left ankle brachial index by the dorsalis pedis is 1.13. The left ankle brachial index by the posterior tibial artery is 0.89. The left digital-brachial index is 0.48. VL/Ankle Brachial Index Interpretation Summary Right MAKAYLA 1.21, normal. Doppler/PVR waveforms of the right ankle normal at rest. TBI diminished, pedal/digit disease vs spasm. Left MAKAYLA 1.13, normal. Doppler/PVR waveforms of the left ankle normal at rest. TBI diminished, pedal/digit disease vs spasm. __ Ordering Physician: Jillian Cao Referring Physician: Josiah Lerma MD Performed By: [place] Vero Chapman and Student 03/15/24 1310 Date Ivan Ortiz MD CC: RAEANN Angelo; Dr. Josiah Lerma MD Date Dictated: 03/15/24 1037 Date Transcribed: 03/15/24 1310 Electric Motor Tester Assembler: Signed Normal [facility] US Art Duplex Unilat Lower E xton 03-15-2024 US Art Duplex Unilat Lower Ext [facility] [address] [place] [address] US Art Duplex Unilat Lower Ext 03/15/24 1002 MR#: [id number] Acct: [id number] Name: MALGORZATA MARCIAL Rep #: [id number] : 1965 59 From: Ivan Ortiz MD Attending Dr: RAEANN Angelo Status: REG CLI Ordering Dr: Jillian Cao Date: 03/15/24 Location: [facility] Sex: F C Admitted: Reason For Study: S/P R SFA-SHERRI Bypass Right Velocities Ext. Iliac Artery, dist = 119.5 cm./sec. Common Femoral Artery, mid = 76.0 cm./sec. Supf Femoral Artery, prox = 103.00 cm./sec. Profunda Femoral Artery = 57.6 cm./sec. SFA to SHERRI Bypass SFA mid, prox to bypass, 116.1 cm/sec. SFA mid, prox anastamosis, 92.0 cm/sec. Prox bypass, 127.1 cm/sec. Mid bypass, 94.2 cm/sec. Distal bypass, 54.4 cm/sec. SHERRI prox, distal anastamosis, 69.1 cm/sec. SHERRI prox, distal to bypass, 72.2 cm/sec. SHERRI mid, 87.6 cm/sec. SHERRI distal, 98.6 cm/sec. ESTIMATOR BINDING prox, 19.9 cm/s. ESTIMATOR BINDING mid-distal, No Flow. Peroneal Artery, prox = 72.3 cm./sec. Peroneal Artery, mid = 39.5 cm./sec. Peroneal Artery,dist = 27.0 cm./sec. Procedure Exam performed in department. /US Art Duplex Unilat Lower Ext Interpretation Summary Patent right SFA-anterior tibial bypass with normal velocities and no evidence of stenosis. __ Ordering Physician: Jillian Cao Referring Physician: Jillian Cao Performed By: Vero Gonzalez RVT and Student 03/15/24 1313 Date Ivan Ortiz MD CC: RAEANN Angelo; Dr. Josiah Lerma MD Date Dictated: 03/15/24 1002 Date Transcribed: 03/15/24 1313 Electric Motor Tester Assembler: Signed Normal [facility] Surgery Visit Reporton 10-11 Surgery Visit Report [facility] [address] [place] [address] OFFICE VISIT Date of Service: 10/12/23 MR#: [id number] Acct: [id number] Name: MALGORZATA MARCIAL Rep #: [id number] : 1965 Provider: RAEANN Angelo Age/Sex: 58/F Location: [facility] [place].[facility] Status: Signed Intake Vital Signs 08/30/23 16:04 10/12/23 08:29 Height 5 ft Weight: 170 lb BP 133/67 H Blood Pressure Location Lt brachial Position Sitting Respiration 16 Pulse 96 Pulse Source Monitor Temp 97.7 F L Temp Source Temporal Pulse Oximetry (%) 99 Oxygen Delivery Method room air Intake Visit Reasons: 4 W F/U Is patient in pain?: No Allergies No Known Allergies Allergy (Verified 10/12/23 08:32) Medications ???Medication ???Instructions ???Recorded ???Confirmed ???Type metformin 1,000 mg tablet 1,000 mg PO BID diabetes 01/12/23 10/12/23 History lisinopril 10 mg tablet 10 mg PO DAILY blood pressure 02/01/23 10/12/23 History atorvastatin 40 mg tablet 40 mg PO QHS #30 tabs 04/28/23 10/12/23 Rx cilostazol 50 mg tablet 50 mg PO BID cilostazol 08/25/23 10/12/23 History rivaroxaban 20 mg tablet (Xarelto) 20 mg PO DAILY #30 tabs 10/04/23 10/12/23 Rx gabapentin 300 mg capsule 300 mg PO .prn nerve pain 10/12/23 10/12/23 History Is last menstrual period known: No Post menopausal: Yes Patient : No Have you fallen in the past year?: Yes Subjective Details: Malgorzata Marcial is a 58 y/o female who presents today for her initial postoperative visit s/p right SFA-AT bypass with reversed GSV on 08/26/23. Since last OV, she has completed MAKAYLA and arterial duplex which revealed patent SFA-AT bypass and showed significantly improved MAKAYLA from 0.32 (08/16/23) to 1.15 (09/27/23). Her Hgb was uptrending at 9.8. Her R posterior calf/ankle wound has also healed in the interval since last OV. Her claudication/rest pain remains resolved. Her UTI symptoms resolved with treatment. Objective Details: A Ox3, NAD RRR Nonlabored respirations R DP pulse palpable, R PT with biphasic doppler signal. R foot is warm and pink. LLE incision sites are all well-healing. On the R medial calf incision, there is one small 0.2x0.1 cm area of superficial opening with scab overlying and mild reactive erythema. The remainder of the incision site is well healed. The R thigh incision site is well healed. Coding Level of Care Code Global Post Op Diagnoses S/P femoral-tibial bypass Z98.890 Peripheral arterial disease I73.9 [facility] Medical History Wears glasses Wears dentures Post-menopausal Diabetes High cholesterol Back pain Migraine headache Injury of head and neck Dietary restriction Shortness of breath on exertion Non-smoker History of pain when walking History of edema Heart murmur Surgical History No history of previous surgery Family History Other CAD (coronary artery disease) Diabetes Heart disease Myocardial infarction Social History Smoking Status: Never smoker Assessment and Plan (No Qualifiers) Assessment and Plan (1) S/P femoral-tibial bypass: Status: Acute Comment: s/p R SFA to AT bypass with reversed GSV 08/26/23 (2) Peripheral arterial disease: Status: Acute Plan Incision sites are overall well healed. I expect that the small superficial opening on the R calf incision site will heal without issue, she is instructed to monitor and call/return with any concerns. Her RLE wound has healed. Her claudication remains resolved. Arterial duplex showed patent bypass and her MAKAYLA was significantly improved to 1.15. Will plan to repeat arterial testing at 6 months and 1 year post-op. Continue with Xarelto 20mg daily for at least 6 months post-operatively. She is tolerating pletal without adverse effects so will continue this for now as well. She will return to the office at 6 months post-op, sooner as needed. 10/12/23 0922 Date Jillian CARY 10/12/23 1111 Cosigner Signature: Date (if applicable) Ivan Ortiz MD CC: Dr. Josiah Lerma MD Normal [facility] Anaerobic cultureOrdered By: Jeremiah Stoner on 03-04-2023 Bacteria identified Anaer cx Nom (Unsp spec) No anaerobic bacteria isolated. [facility] Bacteria identified Cx Nom ( Wound)Ordered By: Jeremiah Stoner on 03-04-2023 Wound Culture Staphylococcus lugdunensis [facility] Glucose Glucometer (BldC) [M ass/Vol]Ordered By: Jeremiah Stoner on 03-04-2023 Glucose [Mass/Vol] 161 mg/dL 74-106 [facility] Comment on above: MANAGEMENT OF PATIEN T CARE PER NURSING PROTOCOL Gram stain for investigation of transfusion reactionOrdered By: Jeremiah Stoner on 03-04-2023 Microscopic observation Gram stain Nom (Unsp spec) [facility] Absolute lymphocyte countOrd ered By: Ivan Ortiz on 03-03-2023 Lymphocytes Auto (Unsp spec) [#/Vol] 2.16 10*3/uL 0.83-4.51 [facility] Basophil percentageOrdered B y: Ivan Ortiz on 03-03-2023 Basophils/100 WBC (Bld) 0.6 % 0-1 [facility] Chloride [Moles/Vol] 104 mmol/L 98-107 [facility] Eosinophils/100 WBC (Bld) 2.9 % 0-5 [facility] Glucose [Mass/Vol] 132 mg/dL 74-106 [facility] Comment on above: Fasting Glucose resu lt greater than or equal to 126 mg/dL suggests DIABETES MELLITUS per A.D.A. criteria. Neutrophils (Bld) [#/Vol] 3.8 10*3/uL 2.0-7.7 [facility] Neutrophils/100 WBC (Bld) 54.8 % 47-70 [facility] Potassium [Moles/Vol] 4.1 mmol/L 3.5-5.1 [facility] [facility] Sodium [Moles/Vol] 138 mmol/L 136-145 [facility] WBC (Bld) [#/Vol] 7.0 10*3/uL 4.4-11.0 [facility] Blood erythrocytes count (nu mber/volume)Ordered By: Ivan Ortiz on 03-03-2023 RBC (Bld) [#/Vol] 4.57 10*6/uL 4.2-5.4 [facility] Blood hemoglobin measurement (mass/volume)Ordered By: Ivan Ortiz on 03-03-2023 Hemoglobin (Bld) [Mass/Vol] 12.6 g/dL 12.0-15.0 [facility] Blood lymphocytes/100 leukoc ytesOrdered By: Ivan Ortiz on 03-03-2023 Lymphocytes/100 WBC (Bld) 31.0 % 19-41 [facility] Blood monocytes/100 leukocyt esOrdered By: Ivan Ortiz on 03-03-2023 Monocytes/100 WBC (Bld) 10.3 % 0-10 [facility] Blood platelet mean volumeOr dered By: Ivan Ortiz on 03-03-2023 Platelet mean volume (Bld) [Entitic vol] 9.9 fL 6.2-12.0 [facility] Determination of erythrocyte mean corpuscular volume (MCV)Ordered By: Ivan Ortiz on 03-03-2023 MCV (RBC) [Entitic vol] 86.4 fL 81-99 [facility] Hematocrit Auto (Bld) [Volum e fraction]Ordered By: Ivan Ortiz on 03-03-2023 Hematocrit (Bld) [Volume fraction] 39.5 % 37-47 [facility] Laboratory - Chemistry and C hemistry - challengeOrdered By: Ivankeely Ortiz on 03-03-2023 CO2 [Moles/Vol] 29.0 mmol/L 21.0-32.0 [facility] Urea nitrogen/Creatinine [Mass ratio] 29.8 mg/mg 10-20 [facility] Laboratory - Hematology and Cell countsOrdered By: Ivan Ortiz on 03-03-2023 Erythrocyte distribution width (RBC) [Entitic vol] 39.8 fL 35.1-43.9 [facility] Erythrocyte distribution width (RBC) [Ratio] 12.7 % 11.6-14.6 [facility] Immature granulocytes/100 WBC (Bld) 0.400 % 0.0-0.9 [facility] Comment on above: IG% - Immature Granu locytes (promyelocytes, myelocytes and metamyelocytes) > 1% indicates that a LEFT SHIFT is Present. MCH (RBC) [Entitic mass] 27.6 pg 27.0-32.0 [facility] Nucleated RBC/100 WBC (Bld) [Ratio] 0 % 0-5 [facility] MCHC Auto (RBC) [Mass/Vol]Or dered By: Ivan Ortiz on 03-03-2023 MCHC (RBC) [Mass/Vol] 31.9 g/dL 32-36 [facility] No Panel InformationOrdered By: Ivan Ortiz on 03-03-2023 Estimated Creatinine Clearance Calc 57.20 ml/min [facility] Estimated GFR (MDRD) Amer 99 mL/min >60 [facility] Comment on above: GFR Calc Estimated GFR (MDRD) Non-Af Amer 82 mL/min >60 [facility] Comment on above: Non- GFR Calc Platelets bldOrdered By: Desirae Ortiz on 03-03-2023 Platelets (Bld) [#/Vol] 291 10*3/uL 150-450 [facility] Serum or plasma calcium ana urement (mass/volume)Ordered By: Ivan Ortiz on 03-03-2023 Calcium [Mass/Vol] 9.3 mg/dL 8.5-10.1 [facility] Serum or plasma creatinine m easurement (mass/volume)Ordered By: Ivan Ortiz on 03-03-2023 Creatinine [Mass/Vol] 0.77 mg/dL 0.55-1.02 [facility] Comment on above: The validity of the calculated GFR & GFRAA in patients over 70 years has not been determined. Clinical correlation is essential. Serum or plasma urea nitroge n measurement (mass/volume)Ordered By: Ivan Ortiz on 03-03-2023 Urea nitrogen [Mass/Vol] 23 mg/dL 7-18 [facility] Thin prep Papanicolaou smear with manual screeningOrdered By: Ivan Ortiz on 03-03-2023 Thin prep Papanicolaou smear with manual screening 5 5-15 [facility] Laboratory - Chemistry and C hemistry - challengeOrdered By: Walter Brooke on 02-28-2023 Magnesium [Mass/Vol] 1.7 mg/dL 1.6-2.6 [facility] No Panel InformationOrdered By: Jillian Cao on 02-28-2023 Estimated GFR (MDRD) Amer 91 mL/min >60 [facility] Comment on above: GFR Calc Estimated GFR (MDRD) Non-Af Amer 76 mL/min >60 [facility] Comment on above: Non- GFR Calc Serum or plasma creatinine m easurement (mass/volume)Ordered By: Jillian Cao on 02-28-2023 Creatinine [Mass/Vol] 0.82 mg/dL 0.55-1.02 [facility] Comment on above: The validity of the calculated GFR & GFRAA in patients over 70 years has not been determined. Clinical correlation is essential. Basophil percentageOrdered B y: Jillian Cao on 02-21-2023 Basophil percentage < 1.0 mg/dL 0.55-1.02 [facility] No Panel InformationOrdered By: Jillian Cao on 02-21-2023 Bedside Estimated GFR (eGFR) > 60.0000 mL/min >60 [facility] Vital Signs Date Time Vital Sign Value Performing Clinician Tammy godoy 10-05-2024 14:26-0400 Body temperature 98 [degF] Dr. Josiah Lerma DO Work Phone: 5(229)538-103919 [place] [address] 10-05-2024 14:26-0400 Body weight 74.[address] Josiah Lerma DO Work Phone: 5(462)265-611392 [address] 10-05-2024 14:26-0400 Diastolic blood pressure 72 mm[Hg] Dr. Josiah Lerma DO Work Phone: 4(248)362-689492 [address] 10-05-2024 14:26-0400 Heart rate 92 /min Dr. Josiah Lerma DO Work Phone: 5(775)580-578292 [address] 10-05-2024 14:26-0400 Respiratory rate 18 /min Dr. Josiah Lerma DO Work Phone: 2(877)258-284792 [address] 10-05-2024 14:26-0400 SaO2% (BldA) [Mass fraction] 97 % Dr. Josiah Lerma DO Work Phone: 3(578)650-816419 [place] [address] 10-05-2024 14:26-0400 Systolic blood pressure 125 mm[Hg] Dr. Josiah Lerma DO Work Phone: 5(041)246-479619 [place] [address] 03-24-2023 10:35-0500 Body temperature 97.8 [degF] Dr. Josiah Lerma Work Phone: 2(071)634-960619 [place] [address] 03-24-2023 10:35-0500 Body weight 77.[address] Josiah Lerma Work Phone: 4(491)476-642620 [place] [address] 03-24-2023 10:35-0500 Diastolic blood pressure 78 mm[Hg] Dr. Josiah Lerma Work Phone: 7(540)521-117492 [address] 03-24-2023 10:35-0500 Heart rate 110 /min Dr. Josiah Lerma Work Phone: 5(756)904-063219 [place] [address] 03-24-2023 10:35-0500 Respiratory rate 16 /min Dr. Josiah Lerma Work Phone: 2(971)663-283720 [place] [address] 03-24-2023 10:35-0500 SaO2% (BldA) [Mass fraction] 100 % Dr. Josiah Lerma Work Phone: 9(824)698-133720 [place] [address] 03-24-2023 10:35-0500 Systolic blood pressure 155 mm[Hg] Dr. Josiah Lerma Work Phone: 0(905)705-626420 [place] [address] 03-04-2023 17:04-0500 Body temperature 98.3 [degF] Dr. Josiah Lerma Work Phone: 2(714)733-009620 [place] [address] 03-04-2023 17:04-0500 Diastolic blood pressure 74 mm[Hg] Dr. Josiah Lerma Work Phone: 6(836)307-559120 [place] [address] 03-04-2023 17:04-0500 Heart rate 82 /min Dr. Josiah Lerma Work Phone: 7(234)118-200120 [place] [address] 03-04-2023 17:04-0500 Respiratory rate 16 /min Dr. Josiah Lerma Work Phone: 4(649)309-987720 [place] [address] 03-04-2023 17:04-0500 SaO2% (BldA) [Mass fraction] 94 % Dr. Josiah Lerma Work Phone: 7(401)670-223920 [place] [address] 03-04-2023 17:04-0500 Systolic blood pressure 136 mm[Hg] Dr. Josiah Lerma Work Phone: 8(662)747-097920 [place] [address] 03-04-2023 16:40-0500 Inhaled oxygen flow rate 2 L/min Dr. Josiah Lerma Work Phone: 8(467)542-212720 [place] [address] 03-04-2023 12:50-0500 Body height 152.[address] Josiah Lerma Work Phone: 1(791)685-850620 [place] [address] 03-04-2023 12:50-0500 Body mass index (BMI) [Ratio] 33 kg/m2 Dr. Josiah Lerma Work Phone: 7(049)111-167020 [place] [address] 03-04-2023 12:50-0500 Body weight 76.[address] Josiah Lerma Work Phone: 8(770)510-830120 [place] [address] 03-03-2023 07:13-0500 Body weight 78.[address] Josiah Lerma Work Phone: 1(353)584-603620 [place] [address] 03-02-2023 15:37-0500 Body mass index (BMI) [Ratio] 33.2 kg/m2 Dr. Josiah Lerma Work Phone: 4(633)596-545120 [place] [address] 03-02-2023 15:37-0500 Body temperature 97 [degF] Dr. Josiah Lerma Work Phone: 6(907)880-690820 [place] [address] 03-02-2023 15:37-0500 Diastolic blood pressure 70 mm[Hg] Dr. Josiah Lerma Work Phone: 5(210)108-206820 [place] [address] 03-02-2023 15:37-0500 Heart rate 96 /min Dr. Josiah Lerma Work Phone: 7(134)673-793720 [place] [address] 03-02-2023 15:37-0500 Respiratory rate 20 /min Dr. Josiah Lerma Work Phone: 9(616)452-431920 [place] [address] 03-02-2023 15:37-0500 Systolic blood pressure 144 mm[Hg] Dr. Josiah Lerma Work Phone: 6(680)846-648520 [place] [address] 03-02-2023 08:38-0500 Body mass index (BMI) [Ratio] 34 kg/m2 Dr. Josiah Lerma Work Phone: 4(363)243-217320 [place] [address] 02-28-2023 16:05-0500 Body temperature 97.8 [degF] Dr. Josiah Lerma Work Phone: 6(794)375-930820 [place] [address] 02-28-2023 16:05-0500 Body weight 78.[address] Josiah Lerma Work Phone: 5(105)610-372820 [place] [address] 02-28-2023 16:05-0500 Diastolic blood pressure 80 mm[Hg] Dr. Josiah Lerma Work Phone: 3(734)336-620020 [place] [address] 02-28-2023 16:05-0500 Heart rate 84 /min Dr. Josiah Lerma Work Phone: 7(765)544-582120 [place] [address] 02-28-2023 16:05-0500 Respiratory rate 18 /min Dr. Josiah Lerma Work Phone: 8(454)326-085820 [place] [address] 02-28-2023 16:05-0500 SaO2% (BldA) [Mass fraction] 99 % Dr. Josiah Lerma Work Phone: 9(307)812-438820 [place] [address] 02-28-2023 16:05-0500 Systolic blood pressure 180 mm[Hg] Dr. Josiah Lerma Work Phone: 8(842)924-377420 [place] [address] 02-11-2023 00:31-0500 Body weight 77.[address] Josiah Lerma Work Phone: 2(994)869-851720 [place] [address] 02-09-2023 15:04-0500 Body mass index (BMI) [Ratio] 33.2 kg/m2 Dr. Josiah Lerma Work Phone: 4(222)557-646220 [place] [address] 02-09-2023 15:04-0500 Diastolic blood pressure 89 mm[Hg] Dr. Josiah Lerma Work Phone: 3(049)606-676220 [place] [address] 02-09-2023 15:04-0500 Heart rate 86 /min Dr. Josiah Lerma Work Phone: 4(125)392-225320 [place] [address] 02-09-2023 15:04-0500 Respiratory rate 18 /min Dr. Josiah Lerma Work Phone: 8(059)622-352020 [place] [address] 02-09-2023 15:04-0500 Systolic blood pressure 161 mm[Hg] Dr. Josiah Lerma Work Phone: 7(564)383-849120 [place] [address] 02-01-2023 11:10-0500 Body temperature 98.2 [degF] Dr. Josiah Lerma Work Phone: 9(837)246-962520 [place] [address] 02-01-2023 11:10-0500 Body weight 76.[address] Josiah Lerma Work Phone: [facility] 02-01-2023 11:10-0500 Diastolic blood pressure 77 mm[Hg] Dr. Josiah Lerma Work Phone: [facility] 02-01-2023 11:10-0500 Heart rate 75 /min Dr. Josiah Lerma Work Phone: 1(520)701-044992 [address] 02-01-2023 11:10-0500 Respiratory rate 18 /min Dr. Josiah Lerma Work Phone: 7(260)660-484992 [address] 02-01-2023 11:10-0500 SaO2% (BldA) [Mass fraction] 100 % Dr. Josiah Lerma Work Phone: [facility] 02-01-2023 11:10-0500 Systolic blood pressure 158 mm[Hg] Dr. Josiah Lerma Work Phone: 4(607)350-399092 [address] 01-26-2023 08:43-0500 Body temperature 95.7 [degF] Dr. Josiah Lerma Work Phone: 0(852)887-333892 [address] 01-12-2023 11:11-0400 Body height 152.[address] Josiah Lerma Work Phone: [facility] 01-12-2023 11:11-0400 Body weight 77.[address] Josiah Lerma Work Phone: [facility] Encounters Encounter Date Encounter Type Care Provider Facility Start: 10-05-2024 End: 10-05-2024 Patient encounter procedure Jillian CARY -[facility] Work Phone: Start: 10-05-2024 End: 10-05-2024 ambulatory Jillian Cao Facility:[facility] Start: 10-05-2024 Patient encounter procedure Jillian CARY -Cardiovascular Services Work Phone: Start: 03-16-2024 End: 03-16-2024 ambulatory Jillian Coa Facility:[facility] Start: 03-15-2024 ambulatory Jillian Cao Facility:[facility] Start: 03-15-2024 End: 03-15-2024 ambulatory [facility] Facility:[facility] Start: 10-12-2023 End: 10-12-2023 ambulatory Jillian Cao Facility:[facility] Start: 08-25-[address] Josiah Lerma DO Work Phone: [facility] Start: 04-05-2023 Non-patient / Non-visit Dr. Nicolas Lerma Work Phone: [facility] Start: 04-05-2023 End: 04-05-[address] Josiah Lerma Work Phone: [facility] Work Phone: Start: 04-05-2023 End: 04-05-[address] Josiah Lerma Work Phone: [facility]-Cardiovascular Services Work Phone: Start: 03-24-2023 End: 03-24-[address] Josiah Lerma Work Phone: [facility] Work Phone: Start: 03-04-2023 End: 03-04-2023 Admission to same day surgery center Dr. Josiah Lerma Work Phone: [facility]-Surgical Day Care Start: 03-03-2023 Non-patient / Non-visit Dr. Nicolas Lerma Work Phone: [facility] Start: 03-03-2023 End: 03-03-2023 Admission to same day surgery center Dr. Josiah Lerma Work Phone: [facility]-Director Of Infection Prevention/Special Procedures Work Phone: Start: 03-02-2023 End: 03-03-[address] Josiah Lerma Work Phone: [facility] Work Phone: Start: 03-02-2023 End: 03-03-[address] [facility] Work [facility]: Start: 02-28-2023 End: 02-28-[address] Josiah Lerma Work Phone: [facility] Work Phone: Start: 02-21-2023 End: 02-21-[address] Josiah Lerma Work Phone: [facility] Work Phone: Start: 02-21-2023 End: 02-21-[address] Josiah Lerma Work Phone: [facility] Work Phone: Start: 02-09-2023 End: 02-10-[address] [facility]erm[facility] Work [facility]: Start: 02-01-2023 End: 02-01-[address] Josiah Lerma Work Phone: [facility] Work Phone: Start: 01-19-2023 Non-patient / Non-visit Dr. Nicolas Lerma Work Phone: [facility] Procedures Date Procedure Procedure Detail Performing Clinician Start: 03-04-2023 Fluoroscopic guidance Mera Lerma Work Phone: Start: 03-04-[address] Josiah Lerma Work Phone: Start: 03-04-[address] Josiah Lerma Work Phone: Start: 03-04-2023 Investigation of transfusion reaction Dr. Josiah Lerma Work Phone: Start: 03-04-2023 Microbial culture, routine Dr. Josiah Lerma Work Phone: Start: 02-21-2023 CT of abdominal aort a with contrast Dr. Josiah Lerma Work Phone: Start: 01-12-2023 Plain X-ray of toe Dr. Josiah Lerma Work Phone: Start: 01-12-2023 X-ray of both feet Dr. Josiah Lerma Work Phone: Plan of Treatment Date Care Activity Detail Author Start: 03-04-2023 Patient discharge [facility] Start: 03-04-2023 Adjt tis trns/reargmt f/c/c/m/n/a/g/h/f 10sqcm/< TIS TRNFR F/C/C/M/N/A/G/H/F [facility] Start: 03-04-2023 Amputation toe interphalangeal joint PARTIAL AMPUTATION OF TOE [facility] Start: 03-04-2023 Anes open proc bones lower leg/ankle/foot nos ANESTH LOWER LEG BONE SURG [facility] Start: 03-04-2023 Incision bone cortex foot TREAT FOOT BONE LESION [facility] Acid fast bacilli culture [facility] Creatinine and Glome rular filtration rate.predicted panel - Serum, Plasma or Blood [facility] Fungus identified in Unspecified specimen by Culture [facility] Fungus identified in Unspecified specimen by Fungus stain [facility] Mycobacterium sp michelle ntified in Unspecified specimen by Organism specific culture [facility] Patient referral [facility] Work Phone: Payers Date Payer Category Payer Self-pay 2023 Unknown [id number] Unknown [id number] [id number] Unknown [id number] [id number] [id number] Unknown [id number] 2.16.8 [id number] Unknown [id number] 2.16.8 [id number] Unknown [id number] 2.16.8 [id number] Unknown [id number] 2.16.8 [id number] Social History Date Type Detail Facility Start: 02-22-2023 End: 03-03-2023 Tobacco smoking status NHIS Unknown if ever smoked [facility] Start: 1965 Sex Assigned At Female [facility] Start: 08-25-2023 Tobacco smoking status NHIS Never smoked tobacco (finding) [facility] NEGATED: Highlighted row [facility] Medical Equipment Procedure Code Equipment Code Equipment Origin al Text Equipment Identifier Dates Creation, bypass, arterial, femoral to popliteal, using graft SUTURE,LIGA CLIP MED [id number] FDA Start: 08-26-2023 Creation, bypass, arterial, femoral to popliteal, using graft SUTURE,LIGA CLIP SM LT-100 FDA Start: 08-26-2023 Creation, bypass, arterial, femoral to popliteal, using graft SUTURE,LIGA CLIP MED [id number] FDA Start: 08-26-2023 Creation, bypass, arterial, femoral to popliteal, using graft SUTURE,LIGA CLIP MED [id number] FDA Start: 08-26-2023 Creation, bypass, arterial, femoral to popliteal, using graft SUTURE,LIGA CLIP MED [id number] FDA Start: 08-26-2023 Creation, bypass, arterial, femoral to popliteal, using graft SUTURE,LIGA CLIP MED [id number] FDA Start: 08-26-2023 Creation, bypass, arterial, femoral to popliteal, using graft SUTURE,LIGA CLIP MED [id number] FDA Start: 08-26-2023 Creation, bypass, arterial, femoral to popliteal, using graft SUTURE,LIGA CLIP SM LT-100 FDA Start: 08-26-2023 Creation, bypass, arterial, femoral to popliteal, using graft SUTURE,LIGA CLIP SM LT-100 FDA Start: 08-26-2023 Creation, bypass, arterial, femoral to popliteal, using graft SUTURE,LIGA CLIP SM LT-100 FDA Start: 08-26-2023 Peripheral arter y endovascular stent-graft, drug-coated ()[id number] FDA Start: 03-03-2023 ([id number]) Wound hydrogel dressing, non-antimicrobial ()[id number] FDA Start: 03-03-2023 Goals Date Patient Goal Desired Activity /State Mental Status Date Assessment Result Facility 03-04-2023 Cognitive function Level Of Cons ciousness Appropriate;Drowsy [facility] Work Phone: 03-04-2023 Cognitive function Voice/Name [facility] Work Phone: Progress note 03-02-2023 Note Date & Type Note Facility 03-02-2023 Progress note Note Date/Time March 02, 2023 3:52pm [facility] [address] [place] [address] Progress Note - Wound Care 03/02/23 1549 MR#: [id number] Acct: [id number] Name: MALGORZATA MARCIAL Rep #:[id number] : 1965 58 From: Jeremiah CERDA PCP: Dr. Josiah Lerma MD Status:REG R CR Location: History of Present Illness Date of Service: 03/02/23 Chief Complaint: Dry gangrene, right fifth toe History of Wound: right fifth toe dry gangrene Subjective Subjective Ms. Marcial is a 58-year-old diabetic female seen in the clinic today for follow-up and evaluation of right fifth digit dry gangrene. Patient will be seeing thevascular surgery tomorrow for possible intervention. She is planned for amputation and flap closure with Dr. Stoner Tuesday. She is grateful for her care. She has been doing home dressing changes as directed. She denies any infectionto the area. Her blood sugars well-controlled. She denies trauma. Denies constitutional symptoms. No other pedal complaints at this time. Objective Data Objective Data Vital Signs: Vital Signs Temp Pulse Resp BP 97 F L 96 20 H 144/70 H 03/02/23 15:37 03/02/23 15:37 03/02/23 15:37 03/02/23 15:37 Weight: 77.111 kg Body Mass Index (BMI) 33.2 Physical Exam Narrative Neurovascular is unchanged. Nonpitting edema appreciated to the right foot. Blanchable erythema appreciated to the right fifth digit. Dry eschar appreciated to the distal aspect of the right digit. No malodor. No drainage. No probe to bone. No pain with calf compression. Debridement Note Debridement Note Post-Debridement Measurements and Additional Note: Post-Debridement Measurements/Treatment WC - Nurse 1 - General Ulcer Assessment Start: 03/02/23 15:37 Freq: Status: Active Protocol: HECTOR Activity Type Activity Date Activity User E-sign Co-sign Detail Recorded Client Recorded Date Recorded By Document 03/02/23 15:37 DL [id number] 03/02/23 15:38 DL 03/02/23 15:37 WC - Today's Visit Information Type of service Follow-up Visit (Physician/SPECIALIZED DEVELOPER ) Arrival Mode Ambulatory Transfer Assistance None Patient Identification Verified (Name & Yes ) Patient Requires Transmission-Based No Precautions Height and Weight Body Mass Index (BMI) 33.2 BMI Classification Obese Vital Signs Temperature (97.8 F-99.1 F) 97 F L Temperature Source Temporal Pulse Rate (60-100) 96 Pulse Location Monitor Respiratory Rate (12-18) 20 H Respiratory rate source Observation Blood Pressure (90/60-120/80) 144/70 H Blood Pressure Mean (mm Hg) 94 Source Monitor History Since Last Visit- (Skip if this is Patient's initial visit) Have you changed medications since your No last visit? Any new allergies or adverse reactions No Had a fall/change in ADL's that may No increase risk of falls Signs or symptoms of abuse and/or No neglect since last visit Have you been in the hospital since your No last visit? Has dressing in place as prescribed Yes Has compression in place as prescribed N/A Has offloadiing in place as prescribed Yes Experienced any changes in pain level or No management Pain Scale: 0-10 Numeric Is Patient Pain Free? Yes - Nurse 1 - General Ulcer Measurement Start: 03/02/23 15:37 Freq: Status: Active Protocol: Activity Type Activity Date Activity User E-sign Co-sign Detail Recorded Client Recorded Date Recorded By Document 03/02/23 15:37 DL [id number] 03/02/23 15:38 DL 03/02/23 15:37 Wound Center Nurse 1 #1 5th toe -Current Size (cm) - Length 0.1 -Current Size (cm) - Width 0.1 -Current Size (cm) - Depth 0.1 -Total Square Cm 0.01 -Exudate Amt None Present -Wound Margin Distinct, Outline Attached -Granulation Amt Large (67-100%) -Granulation Quality [place] Station -Necrosis Amt None Present (0 %) -Structure Exposed N/A -Texture (Lisset-wound Skin Appearance) Localized Edema -Moisture (Lisset-wound Skin Appearance) No Abnormality -Color (Lisset-wound Skin Appearance) Erythema -Temperature (Lisset-wound Skin No Abnormality Appearance) (Pt Warm) -Tenderness on Palpation (Lisset-wound No Skin Appearance) -Ulcer Cleansing Rinsed/ Irrigated with Saline -Foul Odor after Cleansing No -Anesthetic Used 5% Lidocaine Gel - Nurse 2 - General Ulcer CM Notes Start: 03/02/23 15:37 Freq: Status: Active Protocol: Activity Type Activity Date Activity User E-sign Co-sign Detail Recorded Client Recorded Date Recorded By Document 03/02/23 15:40 Laptop 03/02/23 15:47 03/02/23 15:40 Wound Center Nurse 2 -Correct Patient No -Correct Side, Site, Position No -Correct Procedure No -Procedure Performed No -Wound/Ulcer Outcome Not Healed -Bleeding Controlled with NA -Offloading Yes -Type of Offloading Surgical Shoe Pain Scale: 0-10 Numeric Is Patient Pain Free? Yes - Nurse 3 - General Ulcer D/C NN Start: 03/02/23 15:37 Freq: Status: Active Protocol: Activity Type Activity Date Activity User E-sign Co-sign Detail Recorded Client Recorded Date Recorded By Document 03/02/23 15:47 Laptop 03/02/23 15:48 03/02/23 15:47 Wound Care Center Nurse 3 #1 5th toe -Ulcer Cleansing Rinsed/ Irrigated with Saline -Other Dressing betadine gauze -Primary Dressing Covered/Secured with Dry Gauze & Roll Gauze, Secured with Tape Pain Scale: 0-10 Numeric Is Patient Pain Free? 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 All findings were discussed with the patient. All questions were answered to the patient's satisfaction. Patient will follow-up with Dr. Ortiz tomorrow for intervention. Tuesday the patient will follow-up with Dr. Sotner for surgical intervention with amputation flap closure to the right fifth digit. She is grateful for her care. She will continue to regulate her blood sugar to within normal limits. The patient will follow-up in [address] Stoner in private office. 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: CODE(S): I70.261 - Atherosclerosis of unga arteries of extremities with gangrene, right leg QUALIFIERS: Peripheral atherosclerosis artery type: unga artery Qualified Code(s): I70.261 - Atherosclerosis of unga arteries of extremities with gangrene, right leg 03/02/23 1552 <Electronically signed by Jeremiah Stoner DPM> Cosigner Signature (if applicable): CC: ~ Signed [facility] Work Phone: Evaluation note Note Date & Type Note Facility Evaluation note Diagnosis Onset Date Dry gangrene acute Peripheral vascular disease acute Non-pressure chronic ulcer o f other part of right foot with fat layer exposed chroni c Cellulitis of right foot acu te Diabetes acute Dry gangrene acute [id number] acute Osteomyelitis of right foot acute Peripheral vascular disease acute Atherosclerosis of right low er extremity with gangrene chronic Non-pressure chronic ulcer o f other part of right foot with fat layer exposed chroni c Atherosclerosis of right low er extremity with gangrene chronic Diabetes acute [id number] acute Atherosclerosis of right low er extremity with gangrene chronic [facility] Work Phone: Evaluation note Note Date & Type Note Facility Evaluation note Diagnosis Onset Date Dry gangrene acute Peripheral vascular disease acute Non-pressure chronic ulcer o f other part of right foot with fat layer exposed chroni c Cellulitis of right foot acu te Diabetes acute Dry gangrene acute [id number] acute Osteomyelitis of right foot acute Peripheral vascular disease acute Atherosclerosis of right low er extremity with gangrene chronic Non-pressure chronic ulcer o f other part of right foot with fat layer exposed chroni c Atherosclerosis of right low er extremity with gangrene chronic Diabetes acute [id number] acute Atherosclerosis of right low er extremity with gangrene chronic Cellulitis of right foot acu te Gangrene, not elsewhere classified acute Laceration without foreign b sabas, right foot, initial encounter acute Osteomyelitis, unspecified a cute Peripheral vascular disease acute Atherosclerosis of right low er extremity with gangrene chronic [facility] Work Phone: Evaluation note Note Date & Type Note Facility Evaluation note Diagnosis Onset Date Dry gangrene acute Peripheral vascular disease acute Non-pressure chronic ulcer o f other part of right foot with fat layer exposed chroni c Atherosclerosis of right low er extremity with gangrene acute Cellulitis of right foot acu te Diabetes acute Dry gangrene acute [id number] acute Osteomyelitis of right foot acute Peripheral vascular disease acute Non-pressure chronic ulcer o f other part of right foot with fat layer exposed chroni c [facility] Work Phone: Evaluation note Note Date & Type Note Facility Evaluation note No assessment information availa sugey [facility] Work Phone: Reason for referral (narrative) Note Date & Type Note Facility Reason for referral (narrative) No reason for referral information available [facility] Work Phone: Chief Complaint and Reason for Visit Chief Complaint CONSULT-ARTERIAL INS UFFICIENCY WOUND/R 5TH TOE ULCER GANGRENE DISCUSS RESULTS/1 M FU WOUND/R 5TH TOE ULCER RLE ATHEROSCLEROSIS Reason for Visit Dry gangrene Peripheral vascular disease Non-pressure chronic ulcer of other part of right foot with fat layer exposed Cellulitis of right foot Diabetes Dry gangrene [id number] Osteomyelitis of right foot Peripheral vascular disease 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 Diabetes [id number] 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 Chief Complaint CONSULT-ARTERIAL INS UFFICIENCY WOUND/R 5TH TOE ULCER GANGRENE DISCUSS RESULTS/1 M FU WOUND/R 5TH TOE ULCER RLE ATHEROSCLEROSIS RLE ATHEROSCLEROSIS Incision of bone cortex of the righ 3 wk f/u Atherosclerosis of unga arteries of extremities Reason for Visit Dry gangrene Peripheral vascular disease Non-pressure chronic ulcer of other part of right foot with fat layer exposed Cellulitis of right foot Diabetes Dry gangrene [id number] Osteomyelitis of right foot Peripheral vascular disease 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 Diabetes [id number] 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 Cellulitis of right foot Gangrene, not elsewhere classified Laceration without foreign body, right foot, initial encounter Osteomyelitis, unspecified Peripheral vascular disease 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 Chief Complaint CONSULT-ARTERIAL INS UFFICIENCY WOUND/R 5TH TOE ULCER GANGRENE Reason for Visit Dry gangrene Peripheral vascular disease 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 Cellulitis of right foot Diabetes Dry gangrene [id number] Osteomyelitis of right foot Peripheral vascular disease Non-pressure chronic ulcer of other part of right foot with fat layer exposed Chief Complaint Admit Date POST OP October 05, 2024 12:4 3pm 6 M FU October 05, 2024 2:11 pm Family History Relationship Condition Age at Onset Recorded Date/T ijeoma Not Specified Diabetes mellitus Unknown Coronary artery disease Unknown Cardiac disease Unknown Myocardial infarction Unknown Advance Directives Advance Directive Response Recorded Date/ Time Advance Directives on File No Decem 2022 7:13am Advance Directives No February 7:13am Living Will No March 03 2 023 7:13am Power of Acute Care Nurse No March 03, 2023 7:13am Advance Directive Response Recorded Date/ Time Living Will No February 22 2 023 2:56pm Power of Acute Care Nurse No February 22, 2023 2:56pm Advance Directive Response Recorded Date/ Time Advance Directives No February 8:13am Summary Purpose Additional Source Comments Care Teams (unrecognized sec tion and content) Team Status: Active Member Role Status Dates Dr. Josiah Lerma DO Primary Care Provider Active Team Status: Active Member Role Status Dates Dr. Josiah Lerma DO Primary Care Provider Active Dr. Ivan Ortiz MD Attending Provider Active Dr. Jeremiah Stoner DPM Referring Provider Active Team Status: Inactive Member Role Status Dates Dr. Josiah Lerma DO Primary Care Provider, Referring Provider Active RAEANN Angelo Attending Provider Active Team Status: Inactive Member Role Status Dates Dr. Josiah Lerma DO Primary Care Provider, Referring Provider Active Dr. Ivan Ortiz MD Attending Provider Active Team Status: Inactive Member Role Status Dates Dr. Jeremiah Stoner DPM Attending Provider Active Dr. Josiah Lerma DO Primary Care Provider, Referring Provider Active Team Status: Inactive Member Role Status Dates Dr. Josiah Lerma DO Primary Care Provider Active RAEANN Angelo Attending Provider, Referring Provid er Active Team Status: Active Member Role Status Dates Dr. Josiah Lerma DO Primary Care Provider Active Dr. Ivan Ortiz MD Attending Provider, Referring Pro vider Active Team Status: Active Member Role Status Dates Dr. Josiah Lerma DO Primary Care Provider Active Dr. Ivan Ortiz MD Attending Provider, Referring Provider, Other Provider Active Team Status: Active Member Role Status Dates Dr. Josiah Lerma DO Primary Care Provider Active Dr. Ivan Ortiz MD Attending Provider Active Team Status: Inactive Member Role Status Dates Dr. Josiah Lerma DO Primary Care Provider Active Dr. Jeremiah Stoner DPM Attending Provider, Referring Provider Active Dr. Walter Brooke MD Other Provider Active Team Status: Inactive Member Role Status Dates Dr. Josiah Lerma DO Primary Care Provider Active Dr. Ivan Ortiz MD Attending Provider, Referring Pro vider Active Team Status: Active Member Role/Relationship Status Dates Dr. Josiah Lerma DO Primary Care Provider Active Team Status: Active Member Role/Relationship Status Dates Dr. Josiah Lerma DO Primary Care Provider Active Start: October 05, 2024 RAEANN Angelo Attending Provider Active Star t: October 05, 2024 RAEANN Angelo Referring Provider Active Star t: October 05, 2024 Team Status: Inactive Member Role/Relationship Status Dates Dr. Josiah Lerma DO Primary Care Provider Active Start: October 05, 2024 End: October 05, 2024 Dr. Josiah Lerma DO Referring Provider Active Start: October 05, 2024 End: October 05, 2024 RAEANN Angelo Attending Provider Active Star t: October 05, 2024 End: October 05, 2024 Goals (unrecognized section and content) Goals may be documented in a n alternate sectionGoals may be documented in an alternate sectionGoals may be documented in an alternate section INFORMATION SOURCE (unrecogn ized section and content) DATE CREATED AUTHOR 10/02/2024 [facility] FOR RECORDS PERTAINING TO PATIENTS WHO ARE OR HAVE BEEN ENROLLED IN A CHEMICAL DEPENDENCY/SUBSTANCEABUSE PROGRAM, SOME INFORMATION MAY BE OMITTED. This clinical summary was aggregated from multiple sources. Caution should be exercised in using it in the provision of clinical care. This summary normalizes information from multiple sources, and as a consequence, information in this document may materially change the coding, format and clinical context of patient data. In addition, data may be omitted in some cases. CLINICAL DECISIONS SHOULD BE BASED ON THE PRIMARY CLINICAL RECORDS. [facility]. provides no warranty or guarantee of the accuracy or completeness of information in this document.
== END | disposition home or self-care (01) ==
LOC: CVS 12:46
PROVIDERS: PCP Family Medicine; Referring Provider Physician Assistant; Visit Provider Physician Assistant
DX: Z98.890 Other specified postprocedural states (principal); I73.9 Peripheral vascular disease, unspecified; Z48.812 Encounter for surgical aftercare following surgery on the circulatory system
CPT/HCPCS: 93922; 93926